=== PATIENT | male | born 1955 | race Caucasian/White ===

== ENCOUNTER 2019-03-18 20:17 | Inpatient (IN) | payer MEDICARE, MEDICAID ==
[~2019-03-18] VITALS: Ht 177.8 cm; Wt 122.5 kg
[~2019-03-18 20:17] MED LIST: ACET-8386 PO; AMIO200T PO; BENA20TA PO; BUDE1AER IH; CARV25TA PO; CLIN300C2 PO; DOCU-299 PO; DOXY100C9 PO; IBUP-974 PO; MELO7.5T11 PO; OMEP20EC9 PO; TRAM50TA1 PO
[2019-03-18 20:20] VITALS: BP 120/70
--- NOTE | 2019-03-18 20:26 | NUR ---
63 YEAR OLD MALE COMPLAINS OF INCREASED WORK OF BREATHING X1 HOUR. PATIENT CLAIMS PRODUCTIVE COUGH WITH SPUTUM X2 DAYS. PATIENT MILD WHEEZING BL ON EXPIRATION WITH MILD INCREASED WOB AND SYMMETRICAL RISE/FALL OF CHEST. 2L NC 99% O2 SATURATION. PATIENT STATES HE WAS UNABLE TO FIND ALBUTEROL TREATMENT. PATIENT STATES THAT HE FELL 2X MONTHS AGO AND STILL HAS PAIN IN LEFT LEG, RIGHT SHOULDER, AND LOWER BACK. PATIENT ALERT AND ORIENTED. SKIN WARM AND DRY. BED IN LOWEST POSITION, LOCKED, BED RAIL UPX1. HX - COPD, AFIB, LEFT CHEST IMPLANTED DEFIBRILLATOR, DM2, HF, CARDIOMYOPATHY, CAD
[2019-03-18] MEDS ORDERED: MAG SULF 2000 MG/WATER PREMIX 50 ML IV ONE (20:30)
[2019-03-18] MEDS ORDERED: ALBUTEROL SULFATE/IPRATROPIU 3 ML SOL IH ONE (20:30)
[2019-03-18] MEDS ORDERED: KETOROLAC 30 MG/ML VIAL IVP ONE (20:30)
[2019-03-18] MEDS ORDERED: methylPREDNISolone SS 125 MG in WATER STERILE 2 ML IVP ONE (20:30)
[2019-03-18 21:01] LABS: BASOPHILS % (AUTO) 0.1 % (0.0-2.0); EOSINOPHILS # (AUTO) 0.3 K/uL (0-0.4); EOSINOPHILS % (AUTO) 4.7 % (0.0-4.0); HEMATOCRIT 33.4 % (36-52); HEMOGLOBIN 10.7 g/dL (12.0-18.0); LYMPHOCYTES # (AUTO) 1.5 K/uL (2.0-11.5); LYMPHOCYTES % (AUTO) 21.9 % (20.5-51.1); MEAN CORPUSCULAR HEMOGLOBIN 28 pg (27-31); MEAN CORPUSCULAR HGB CONC 32 g/dL (33-37); MONOCYTES # (AUTO) 0.4 K/uL (0.8-1.0); MONOCYTES % (AUTO) 5.9 % (1.7-9.3); NEUTROPHILS # (AUTO) 4.7 K/uL (1.8-7.7); NEUTROPHILS % (AUTO) 67.4 % (42.2-75.2); PLATELET COUNT (AUTO) 385 K/uL (140-450); RED BLOOD CELL COUNT(AUTO) 3.79 MIL/uL (4.20-6.10); RED CELL DISTRIBUTION WIDTH 18.6 % (11.6-13.7)
[2019-03-18 21:13] LABS: ANION GAP 11.3 (8-16); CARBON DIOXIDE 30.8 mmol/L (21-32); CREATININE 1.7 mg/dL (0.7-1.3); POTASSIUM 4.1 mmol/L (3.5-5.1)
--- NOTE | 2019-03-18 21:17 | NUR ---
22G IV INSERTED ON RIGHT WRIST. PATIENT TOLERATED WELL. FLUSHED EASILY WITH NO PAIN. GOOD BLOOD RETURN.
[2019-03-18 21:18] LABS: TOTAL BILIRUBIN 0.2 mg/dL (0.0-1.0)
[2019-03-18] MEDS ORDERED: LOSA50TA66 PO (21:31)
[2019-03-18] MEDS ORDERED: ROB PO (21:31)
[2019-03-18] MEDS ORDERED: TAMS0.4C96 PO (21:31)
[2019-03-18] MEDS ORDERED: SPIR50TA PO (21:31)
[2019-03-18] MEDS ORDERED: BACL10TA4 PO (21:31)
[2019-03-18] MEDS ORDERED: FURO-570 PO (21:31)
[2019-03-18] MEDS ORDERED: ATRN INH (21:31)
[2019-03-18] MEDS ORDERED: MSCON15 PO (21:31)
[2019-03-18] MEDS ORDERED: METF500T PO (21:31)
[2019-03-18] MEDS ORDERED: MORPHINE SULFATE 4 MG/ML SYR IVP ONE (21:55)
--- NOTE | 2019-03-18 22:15 | NUR ---
EKG PERFORMED AT BEDSIDE
[2019-03-18] MEDS: NACL 0.9% 1,000 ML IV SCH (22:38)
[2019-03-18] MEDS ORDERED: ACETAMINOPHEN 325 MG TAB PO PRN (22:40)
[2019-03-18] MEDS ORDERED: DOCUSATE SODIUM 100 MG GELCAP PO PRN (22:40)
[2019-03-18] MEDS ORDERED: ONDANSETRON 4 MG/2 ML VIAL IM/IVP PRN (22:40)
[2019-03-18 23:15] VITALS: BP 130/69
[2019-03-18] MEDS ORDERED: LEVOFLOXACIN 750 MG/D5W PREMIX 150 ML IV SCH (23:15)
[2019-03-18] MEDS ORDERED: MORPHINE SULFATE 2 MG/ML SYR IVP PRN (23:15)
[2019-03-18] MEDS ORDERED: DEXTROSE 50% 50 ML SYR IVP PRN (23:15)
--- NOTE | 2019-03-18 23:15 | NUR ---
Patient will be admitted to care of DR ABRAHAM. Admited to TELE. Will go to room 119B. Belongings list completed. Report to ERICK.
--- NOTE | 2019-03-18 23:15 | NUR ---
RECOIEVED PT AAOX4 ,FROM ER WITH IV SITE INTACT AND PATENT, NO ACUTE DISTRESS NOTED AT THIS TIME O2 SAT. WNL . AMBULATES TO BED , SKIN INTACT , HE SAID HE FELL 2 MOS . AGO - C/O OF PAIN ON THE BACK AND LEGS , ON CARDIAC MO NITOR - WITH IMPLANTED DEFIBRILATOR . ON O2 AT 2LPM /NC . SPECIMEN FOR MRSA COLLECTED AND SENT TO LAB . ADMISSION ASSESSMENT DONE. PUT PT ON SAFETY / FALL PRECAUTION PROTOCOL- BED ALARM ON , CALL LIGHT WITHIN REACH . WILL CONT. TO MONITOR.
[2019-03-18] MEDS ORDERED: HYDROmorphone PFS 2 MG/ML SYR IVP SCH (23:30)
[2019-03-18] MEDS ORDERED: BACL5TAB PO (23:44)
[2019-03-18] MEDS ORDERED: SPIR25TA PO (23:44)
[2019-03-18] MEDS ORDERED: ALBU3SOL83 IH (23:44)
[2019-03-18] MEDS ORDERED: CARV3.12 PO (23:44)
[2019-03-18] MEDS ORDERED: UMEC62.5 IH (23:44)
[2019-03-18 23:46] LABS: MAGNESIUM 1.4 mg/dL (1.8-2.4); PHOSPHORUS 3.2 mg/dL (2.5-4.9); THYROID STIMULATING HORMONE 4.09 uIU/mL (0.34-3.74)
[2019-03-19] MEDS ORDERED: MORPHINE TAB ER 15 MG TABER PO PRN (00:05)
[2019-03-19] MEDS ORDERED: guaiFENesin 20 MG/ML UDC PO PRN (00:05)
[2019-03-19 00:14] LABS: PROTHROMBIN TIME 9.9 secs (10.8-13.4)
--- NOTE | 2019-03-19 00:23 | NUR ---
RT SAID THE PT MAY PUT ON RA SINCE THE O2 SAT IS GOOD AND THE PT MAY O2 MAY ON PRN BASIS. - WILL CONT. TO MONITOR.
[2019-03-19] MEDS ORDERED: MAGNESIUM OXIDE 400 MG TAB PO SCH (01:30)
--- NOTE | 2019-03-19 02:00 | NUR ---
MADE ROUNDS , NO SIGN OF ACUTE DISTRESS NOTED AT THIS TIME. CALL LIGHT WITHIN REACH.
[2019-03-19] MEDS ORDERED: CLINDAMYCIN 600 MG/4 ML VIAL ONE ×2 (02:14→06:17)
[2019-03-19] MEDS: CLINDAMYCIN 600 MG in DEXTROSE 5% 50 ML IV SCH ×3 (02:19→11:08)
[2019-03-19] MEDS ORDERED: diphenhydrAMINE 50 MG/ML VIAL IVP SCH (02:30)
[2019-03-19] MEDS ORDERED: diphenhydrAMINE 50 MG/ML VIAL ONE (02:37)
[2019-03-19] MEDS: HYDROcodone/APAP 5/325 MG 1 TAB TAB PO PRN ×2 (02:46→08:20)
[2019-03-19 03:27] LABS: BARBITURATE, URINE NEGATIVE ng/ml (NEG <=200)
[2019-03-19 03:28] LABS: BENZODIAZEPINE, URINE NEGATIVE ng/mL (NEG <=200); CANNABINOID, URINE NEGATIVE ng/mL (NEG <=50); COCAINE, URINE NEGATIVE ng/mL (NEG <=300); OPIATE, URINE POSITIVE ng/mL (NEG <=2000); PHENCYCLIDINE SCREEN,URINE NEGATIVE ng/mL (NEG <=25)
[2019-03-19 04:00] VITALS: BP 122/69
--- NOTE | 2019-03-19 04:00 | NUR ---
MADE ROUNDS , NPO ACUTE DISTRESS NOTED AT THIS TIME. Addendum: 03/19/19 at 0534 by Tayla Palmer RN THE WORD NPO IN THE NURSE'S NOTES IS AN ERROR ENTRY INSTEAD OF NO - [id number]
[2019-03-19] MEDS ORDERED: methylPREDNISolone SS 40 MG in WATER STERILE 1 ML IV SCH (05:00)
[2019-03-19] MEDS ORDERED: BACLOFEN 5 MG PO SCH (05:00)
[2019-03-19] MEDS ORDERED: methylPREDNISolone SS 40 MG/ML VIAL IVP SCH (05:00)
[2019-03-19] MEDS: BACLOFEN 10 MG TAB PO SCH ×3 (05:51→21:10)
[2019-03-19] MEDS: PANTOPRAZOLE 40 MG TABEC PO SCH (05:52)
--- NOTE | 2019-03-19 06:00 | NUR ---
MADE [id number] , RESTING ON BED WHILE DRINKING COFEE . NO FURTHER COMPLAIN MADE AT THIS TIME . WILL CONT. TO MONITOR.
[2019-03-19] MEDS: BLOOD GLUCOSE MONITORING 1 DEV DEV FS SCH ×4 (06:25→20:15)
[2019-03-19] MEDS: INSULIN LISPRO SLIDING SCALE 100 UNITS/ML VIAL SUBQ PRN ×2 (06:32→13:11)
[2019-03-19 06:35] LABS: BASOPHILS % (AUTO) 0.3 % (0.0-2.0); HEMATOCRIT 33.7 % (36-52); HEMOGLOBIN 10.8 g/dL (12.0-18.0); LYMPHOCYTES # (AUTO) 0.7 K/uL (2.0-11.5); LYMPHOCYTES % (AUTO) 11.9 % (20.5-51.1); MEAN CORPUSCULAR HEMOGLOBIN 28 pg (27-31); MEAN CORPUSCULAR HGB CONC 32 g/dL (33-37); MEAN CORPUSCULAR VOLUME 88.3 fL (80-94); MONOCYTES % (AUTO) 0.5 % (1.7-9.3); NEUTROPHILS % (AUTO) 87.3 % (42.2-75.2); PLATELET COUNT (AUTO) 364 K/uL (140-450); RED BLOOD CELL COUNT(AUTO) 3.82 MIL/uL (4.20-6.10); RED CELL DISTRIBUTION WIDTH 18.3 % (11.6-13.7); WHITE BLOOD COUNT (AUTO) 5.8 K/uL (4.8-10.8)
[2019-03-19] MEDS: ALBUTEROL SULFATE/IPRATROPIU 3 ML SOL IH SCH ×3 (06:35→19:19)
[2019-03-19] MEDS: BUDESONIDE 0.25 MG/2 ML NEBU INH SCH ×2 (06:44→19:45)
[2019-03-19 06:57] LABS: ANION GAP 13.6 (8-16); CARBON DIOXIDE 26.2 mmol/L (21-32); CREATININE 1.8 mg/dL (0.7-1.3); POTASSIUM 4.8 mmol/L (3.5-5.1)
[2019-03-19 07:06] LABS: MAGNESIUM 1.8 mg/dL (1.8-2.4)
--- NOTE | 2019-03-19 07:35 | NUR ---
Received report from shift commander nurse. Pt is in stable condition. Call light in reach.
[2019-03-19 08:00] VITALS: BP 136/84
[2019-03-19] MEDS: LACTOBACILLUS RHAMNOSUS GG 1 EACH CAP PO SCH (08:21)
[2019-03-19] MEDS: LOSARTAN 50 MG TAB PO SCH (08:22)
[2019-03-19] MEDS: SPIRONOLACTONE 25 MG TAB PO SCH (08:23)
[2019-03-19] MEDS: FUROSEMIDE 40 MG TAB PO SCH (08:23)
[2019-03-19] MEDS ORDERED: CARVEDILOL 3.125 MG TAB PO SCH ×2 (09:00→10:30)
[2019-03-19] MEDS ORDERED: metFORMIN 500 MG TAB PO SCH (09:00)
[2019-03-19] MEDS ORDERED: NON-FORMULARY ITEM (Omeprazole 20 MG) PO SCH (09:00)
[2019-03-19 09:52] LABS: APPEARANCE,URINE CLEAR (CLEAR); BILIRUBIN,URINE NEGATIVE (NEGATIVE); BLOOD, URINE NEGATIVE (NEGATIVE); COLOR,URINE YELLOW (YELLOW); LEUKOCYTE ESTERASE ,URINE NEGATIVE (NEGATIVE); NITRITE, URINE NEGATIVE (NEGATIVE); UGLUCOSE NEGATIVE (NEGATIVE)
--- NOTE | 2019-03-19 10:00 | NUR ---
PT IS IN BED RESTING IN STABLE CONDITION. CALL LIGHT IN REACH
[2019-03-19] MEDS ORDERED: predniSONE 10 MG TAB PO SCH (11:00)
[2019-03-19 12:00] VITALS: BP 112/58
--- NOTE | 2019-03-19 12:00 | NUR ---
PT IS IN BED RESTING IN STABLE CONDITION. CALL LIGHT IN REACH
--- NOTE | 2019-03-19 13:00 | NUR ---
RECEIVED REPORT FROM NURSE MARTINEZ. PATIENT IS FULL CODE, ALLERGIES TO PENICILLIN, CODEINE, AND IODINE. IV TO LT AC 22G, WITH NS INFUSING AT 30ML/HR. SKIN IS INTACT. PATIENT IS AAOX4, AMBULATORY WITH ASSIST. CURRENTLY PATIENT IS ON ROOM AIR. PT REQUESTED TO SIT IN CHAIR AT BEDSIDE.
--- NOTE | 2019-03-19 13:00 | NUR ---
REPORT GIVEN TO NURSE ARTHUR. PT IS AOX4, ASSIST WITH AMBULATORY, PT IS ON ROOM AIR. PT IS IN STABLE CONDITION. CALL LIGHT IN REACH.
--- NOTE | 2019-03-19 13:50 | NUR ---
APPLIED LOTION ALL OVER BACK AND UPPER CHEST. REAPPLIED EKG LEADS. PATIENT IS LAYING ON BED, WATCHING TV. PATIENT STATED HE SCRATCHED HIS LEFT LOWER LEG. APPLIED 2X2 TO STOP BLEEDING. WILL CONTINUE TO MONITOR.
--- NOTE | 2019-03-19 14:15 | NUR ---
PATIENT C/O COUGHING DURING PREVIOUS CT SCAN AND THAT IS WHY HE WAS UNABLE TO SIT STILL. INFORMED DR LACKEY AND WAS TOLD THAT SHE WOULD ORDER SOMETHING FOR COUGHING SO THAT PATIENT IS ABLE TO GET CT SCAN OF THE HEAD COMPLETED.
[2019-03-19] MEDS: traMADol 50 MG TAB PO PRN ×2 (14:51→23:07)
[2019-03-19] MEDS ORDERED: BENZONATATE 100 MG CAPLF PO PRN (15:00)
--- NOTE | 2019-03-19 15:05 | NUR ---
ADMINISTERED ROBITUSSIN FOR PRN COUGH. PT RECEIVING BREATHING TX AND AGREED TO ATTEMPT CT HEAD AGAIN. CALLED RADIOLOGY AND WILL ACCOMPANY PATIENT FOR CT SCAN
[2019-03-19] MEDS: ALBUTEROL SULFATE/IPRATROPIU 3 ML SOL IH PRN (15:17)
--- NOTE | 2019-03-19 15:17 | NUR ---
pt instructed on giving sputum sample cup at bedside
[2019-03-19] MEDS ORDERED: CALCIUM CARBONATE 500 MG TAB PO SCH (15:30)
--- NOTE | 2019-03-19 15:53 | NUR ---
ASSISTED COOKIE PADDER IN TRANSPORTING PATIENT TO CT FOR A HEAD SCAN. PATIENT TOLERATED WELL. PATIENT IS BACK ON UNIT
[2019-03-19 16:00] VITALS: BP 106/53
--- NOTE | 2019-03-19 16:40 | NUR ---
BLOOD SUGAR OF 121. NO INSULIN COVERAGE NEEDED.
--- NOTE | 2019-03-19 18:50 | NUR ---
PATIENT IS SITTING IN BED. FINISHED EATING DINNER. NO SIGNS OF DISTRESS NOTED. NO OTHER COMPLAINTS. FAMILY AT BEDSIDE. WILL ENDORSE TO THE MANAGER AUDIO NURSE.
--- NOTE | 2019-03-19 19:30 | NUR ---
RECEIVED BEDSIDE REPORT FROM DAY RN. PT AAOX4 ON RA. RESPIRATIONS ARE EQUAL AND UNLABORED. SHERRIE WHEEZING RT AT BEDSIDE GIVING TX. IV ON LAC 20G SITE INTACT AND PATENT, CC REDNESS ON BACK/CHEST PT RECEIVED BENADRYL LAST NIGHT PER RN MD IS AWARE. WILL MONITOR. SKIN INTACT PER RN, HE SAID HE FELL 2 MOS . AGO - C/O OF PAIN ON THE BACK AND LEGS , ON MANAGER CREDIT WITH IMPLANTED DEFIBRILLATOR . POC DISCUSSED WITH PT. FALL PRECAUTION IN PLACE. CALL LIGHT IS WITHIN REACH. WILL CONTINUE TO MONITOR.
[2019-03-19 20:00] VITALS: BP 122/79
[2019-03-19] MEDS: TAMSULOSIN 0.4 MG CAP PO SCH (21:10)
--- NOTE | 2019-03-19 21:10 | NUR ---
VITAL SIGNS ARE WITHIN NORMAL LIMITS. LIAN MEDIATIONS GIVEN. BENADRYL GIVEN FOR REDNESS ON BACK PT WITH NO SOB AT THIS TIME. ALL NEEDS MET. WILL CONTINUE TO MONITOR.
[2019-03-19] MEDS: CARVEDILOL 3.125 MG TAB PO SCH (21:11)
[2019-03-19] MEDS: LEVOFLOXACIN 500 MG/D5W PREMIX 100 ML IV SCH (21:11)
--- NOTE | 2019-03-19 22:30 | NUR ---
PATIENT IS RESTING COMFORTABLY IN BED. CHEST RISE AND FALL. NO S/S OF DISTRESS. WILL CONTINUE TO MONITOR.
[2019-03-19] MEDS: NACL 0.9% 1,000 ML IV SCH (22:38)
[2019-03-20] VITALS: BP 129/59
--- NOTE | 2019-03-20 | NUR ---
VITAL SIGNS ARE WITHIN NORMAL LIMITS. ALL NEEDS MET AT THIS TIME. CALL LIGHT WITHIN REACH.
--- NOTE | 2019-03-20 01:25 | NUR ---
PT IS ASLEEP. NO BREATHING TX GIVEN
[2019-03-20 04:00] VITALS: BP 107/60
--- NOTE | 2019-03-20 04:00 | NUR ---
VITAL SIGNS ARE WITHIN NORMAL LIMITS. ALL NEEDS MET AT THIS TIME.
[2019-03-20] MEDS: PANTOPRAZOLE 40 MG TABEC PO SCH (05:54)
[2019-03-20] MEDS: BACLOFEN 10 MG TAB PO SCH ×3 (05:54→20:45)
--- NOTE | 2019-03-20 05:54 | NUR ---
LIAN MEDICATIONS GIVEN PER ORDERS. BLOOD SUGAR 133. NO COVERAGE NEEDED. SAFETY MEASURES ARE IN PLACE. CALL LIGHT IS WITHIN REACH.
[2019-03-20] MEDS: BLOOD GLUCOSE MONITORING 1 DEV DEV FS SCH ×2 (05:58→11:54)
[2019-03-20] MEDS: ALBUTEROL SULFATE/IPRATROPIU 3 ML SOL IH SCH ×3 (06:56→19:03)
[2019-03-20] MEDS: BUDESONIDE 0.25 MG/2 ML NEBU INH SCH ×2 (07:05→19:03)
[2019-03-20 07:18] LABS: BASOPHILS % (AUTO) 0.2 % (0.0-2.0); HEMATOCRIT 34.7 % (36-52); LYMPHOCYTES # (AUTO) 1.3 K/uL (2.0-11.5); LYMPHOCYTES % (AUTO) 9.3 % (20.5-51.1); MEAN CORPUSCULAR HEMOGLOBIN 28 pg (27-31); MEAN CORPUSCULAR HGB CONC 32 g/dL (33-37); MONOCYTES # (AUTO) 0.5 K/uL (0.8-1.0); MONOCYTES % (AUTO) 3.6 % (1.7-9.3); NEUTROPHILS # (AUTO) 11.7 K/uL (1.8-7.7); NEUTROPHILS % (AUTO) 86.9 % (42.2-75.2); PLATELET COUNT (AUTO) 397 K/uL (140-450); RED BLOOD CELL COUNT(AUTO) 3.89 MIL/uL (4.20-6.10); RED CELL DISTRIBUTION WIDTH 18.6 % (11.6-13.7); WHITE BLOOD COUNT (AUTO) 13.4 K/uL (4.8-10.8)
[2019-03-20] MEDS: traMADol 50 MG TAB PO PRN ×3 (07:21→23:31)
--- NOTE | 2019-03-20 07:25 | NUR ---
RECEIVED BEDSIDE REPORT FROM PAPER PRODUCTS MACHINE OPERATOR NURSE, PT IS GETTING A BREATHING TX AT THIS TIME. NO S/S OF ACUTE DISTRESS NOTED. PT IS ON ROOM AIR, SKIN INTACT, HOWEVER A RASH IS NOTED ON THE BACK AND ON THE CHEST. PT SATS THE RASH IS ITCHY. MD IS AWARE OF THIS. IV SITE L AC 20 G, INFUSING NS 50 ML/HR. FALL PRECAUTIONS IN PLACE, CALL LIGHT IS WITHIN REACH.
--- NOTE | 2019-03-20 07:30 | NUR ---
GAVE BEDSIDE REPORT TO DAY SHIFT RN. PT ENDORSED IN STABLE CONDITION.
[2019-03-20 07:36] LABS: PHOSPHORUS 4.1 mg/dL (2.5-4.9)
[2019-03-20 08:00] VITALS: BP 126/59
--- NOTE | 2019-03-20 08:24 | NUR ---
PATIENT HAS BEEN SCREENED AND CATEGORIZED MODERATE NUTRITION RISK. PATIENT WILL BE SEEN WITHIN 3-5 DAYS OF ADMISSION. 03/21/19 03/23/[address]
[2019-03-20 09:05] LABS: ANION GAP 12.4 (8-16); CARBON DIOXIDE 26.6 mmol/L (21-32)
[2019-03-20 09:06] LABS: CREATININE 1.7 mg/dL (0.7-1.3)
--- NOTE | 2019-03-20 09:12 | NUR ---
PT HAVING A SPONGE BATH AT THIS TIME.
--- NOTE | 2019-03-20 09:20 | NUR ---
PT SEEN BY DR JUNIOR, PT IS DOWNGRADED TO MED-SURG.
[2019-03-20] MEDS: LACTOBACILLUS RHAMNOSUS GG 1 EACH CAP PO SCH (09:38)
[2019-03-20] MEDS: CALCIUM CARBONATE 500 MG TAB PO SCH (09:38)
[2019-03-20] MEDS: FUROSEMIDE 40 MG TAB PO SCH (09:38)
[2019-03-20] MEDS: SPIRONOLACTONE 25 MG TAB PO SCH (09:39)
[2019-03-20] MEDS: LOSARTAN 50 MG TAB PO SCH (09:39)
[2019-03-20] MEDS: CARVEDILOL 3.125 MG TAB PO SCH ×2 (09:39→20:46)
[2019-03-20] MEDS: HYDROCORTISONE 1% CRM 30 GM TUBE TP SCH ×2 (10:17→20:43)
--- NOTE | 2019-03-20 10:22 | NUR ---
PT IS HAVING PHYSICAL THERAPY.
[2019-03-20] MEDS ORDERED: predniSONE 20 MG TAB PO SCH (11:00)
--- NOTE | 2019-03-20 13:05 | NUR ---
STOOL HEMOCCULT SAMPLE TAKEN TO LAB.
--- NOTE | 2019-03-20 13:15 | NUR ---
03/20/19 RD INITIAL ASSESSMENT COMPLETED PLEASE REFER TO NUTRITION ASSESSMENT UNDER CARE ACTIVITY FOR ESTIMATED NUTRITIONAL NEEDS. 1. CONTINUE CCHO 60GM DIET TOLERATED 2. PT DECLINED CARDIAC DIET 3. HEALTH SHAKE WITH MEALS WILL BE PROVIDED BY [facility] 4. RD TO FOLLOW-UP 5-7 DAYS, LOW RISK [address]
[2019-03-20 16:00] VITALS: BP 134/74
--- NOTE | 2019-03-20 16:30 | NUR ---
PT REFUSED TO HAVE HIS BLOOD GLUCOSE CHECKED. PT STATES THAT HE IS "NOT DIABETIC, AND HAS NEVER BEEN DIABETIC". DR GAVIN IS AWARE.
[2019-03-20] MEDS: NACL 0.9% 1,000 ML IV SCH (18:33)
--- NOTE | 2019-03-20 19:28 | NUR ---
PT ENDORSED TO SUPERVISOR PARTIAL DENTURE DEPARTMENT NURSE IN STABLE CONDITION.
--- NOTE | 2019-03-20 19:29 | NUR ---
Received endorsement from AM shift RN; patient A/Ox4, able to make needs known, Faroese speaking, ambulatory with 1-person assist. Patient watching TV; introduced self, updated board. No SOB or distress noted, on room air. IV site noted on left antecubital, 20 gauge, running NS at 80mL/hr. Skin intact, but noted with excoriation/redness no chest and back. Bed in the lowest position, call light within reach. Initial assessment done. Will continue to monitor.
[2019-03-20] MEDS: TAMSULOSIN 0.4 MG CAP PO SCH (20:44)
[2019-03-20] MEDS: KETOROLAC 30 MG/ML VIAL IVP PRN (20:55)
[2019-03-20] MEDS: LEVOFLOXACIN 500 MG/D5W PREMIX 100 ML IV SCH (21:05)
--- NOTE | 2019-03-20 21:20 | NUR ---
Due meds given, tolerated well.
--- NOTE | 2019-03-20 23:30 | NUR ---
Vitals taken; patient resting comfortably, visible chest rise and fall noted.
[2019-03-21] VITALS: BP 129/73
--- NOTE | 2019-03-21 01:07 | NUR ---
Rounds done; patient asleep, eyes closed, visible chest rise and fall noted.
--- NOTE | 2019-03-21 03:35 | NUR ---
Checks made; no SOB or distress noted. Patient resting comfortably, visible chest rise and fall noted.
[2019-03-21] MEDS: ALBUTEROL SULFATE/IPRATROPIU 3 ML SOL IH PRN (04:19)
--- NOTE | 2019-03-21 05:10 | NUR ---
Rounds done; no SOB or distress noted.
[2019-03-21] MEDS: PANTOPRAZOLE 40 MG TABEC PO SCH (05:30)
[2019-03-21] MEDS: BACLOFEN 10 MG TAB PO SCH ×3 (05:30→20:20)
[2019-03-21 05:34] LABS: HEMATOCRIT 31.9 % (36-52); HEMOGLOBIN 10.2 g/dL (12.0-18.0); MEAN CORPUSCULAR HEMOGLOBIN 29 pg (27-31); MEAN CORPUSCULAR HGB CONC 32 g/dL (33-37); MEAN CORPUSCULAR VOLUME 88.8 fL (80-94); PLATELET COUNT (AUTO) 356 K/uL (140-450); RED BLOOD CELL COUNT(AUTO) 3.59 MIL/uL (4.20-6.10); RED CELL DISTRIBUTION WIDTH 18.9 % (11.6-13.7); WHITE BLOOD COUNT (AUTO) 8.5 K/uL (4.8-10.8)
--- NOTE | 2019-03-21 06:05 | NUR ---
Vitals stable, due meds given. Will endorse to AM shift RN for continuity of care.
[2019-03-21 06:16] LABS: LYMPHOCYTES % (MANUAL) 24 % (20-46); MONOCYTES % (MANUAL) 6 % (5-12)
[2019-03-21 06:54] LABS: CARBON DIOXIDE 28.5 mmol/L (21-32); POTASSIUM 4.5 mmol/L (3.5-5.1)
[2019-03-21 06:55] LABS: CREATININE 1.9 mg/dL (0.7-1.3)
[2019-03-21 07:05] LABS: PHOSPHORUS 4.4 mg/dL (2.5-4.9)
--- NOTE | 2019-03-21 07:09 | NUR ---
PT REFUSES HHNS WANTS TO DRINK COFFEE Addendum: 03/21/19 at 0748 by Lynn Caal RT PT REFUSES VITALS
--- NOTE | 2019-03-21 07:12 | NUR ---
RECEIVED BED SIDE REPORT FROM VETERINARY PATHOLOGIST NURSE. PATIENT IN STABLE CONDITION, NO DISTRESS NOTED. WILL CONTINUE TO FOLLOW UP.
[2019-03-21] MEDS: ALBUTEROL SULFATE/IPRATROPIU 3 ML SOL IH SCH ×3 (07:37→19:36)
[2019-03-21] MEDS: BUDESONIDE 0.25 MG/2 ML NEBU INH SCH ×2 (07:47→19:36)
[2019-03-21 08:00] VITALS: BP 128/72
[2019-03-21] MEDS: SPIRONOLACTONE 25 MG TAB PO SCH (09:38)
[2019-03-21] MEDS: CARVEDILOL 3.125 MG TAB PO SCH ×2 (09:38→20:20)
[2019-03-21] MEDS: LOSARTAN 50 MG TAB PO SCH (09:38)
[2019-03-21] MEDS: FUROSEMIDE 40 MG TAB PO SCH (09:39)
[2019-03-21] MEDS: LACTOBACILLUS RHAMNOSUS GG 1 EACH CAP PO SCH (09:39)
[2019-03-21] MEDS: CALCIUM CARBONATE 500 MG TAB PO SCH (09:39)
[2019-03-21] MEDS: HYDROCORTISONE 1% CRM 30 GM TUBE TP SCH ×2 (09:40→20:21)
--- NOTE | 2019-03-21 09:50 | NUR ---
PATIENT SITTING DOWN IN BED. NO DISTRESS NOTED. DENIES ANY PAIN. SCHEDULED MEDICATIONS DUE GIVEN. WILL CONTINUE TO MONITOR.
--- NOTE | 2019-03-21 10:43 | NUR ---
Paunch Trimmer Note: Basic Screen: Yes High Risk DC Screen Yes Name: JEWELS Camarillo Relationship: FRIEND Pre-Admission Living Arrangements: Other Other: [facility] Prior ADL Independent Current Home Health Name/Tel: YES Current DME/02 Name/Tel: [facility] Current Hospice Name/Tel: N/A Current Dialysis Name/Tel: YES Healthcare Decision Maker: Patient Advance Directive No Discipline: Case Mgt/Social Svcs Tentative Discharge Plan/Destination: Other Other: ASSISTED LIVING Will require assistance post discharge: No Referred to [facility]: No Tentative Discharge Plan Summary: Patient is a 63-year-old male admitted for COPD exacerbation. Patient has PHMX of cardiac disorders, COPD and hypertension. Patient was admitted from [facility]. SW contacted Syed - Rn Testing [phone]. Per Marya patient is self-responsible with healthcare decision making and the tentative discharge plan is to return to [facility]. Syed stated that patient is a new resident as of 03/16/2019 and home health and dialysis has not yet been coordinated for patient. No further needs identified. Signature: AMRIK Handley Date: Mar 20, 2019 Time: 16:43
[2019-03-21] MEDS ORDERED: predniSONE 10 MG TAB PO SCH (11:00)
--- NOTE | 2019-03-21 11:14 | NUR ---
PATIENT SLEEPING IN THE BED, CALM, NO RESP DISTRESS NOTED. WILL CONTINUE TO MONITOR.
--- NOTE | 2019-03-21 13:45 | NUR ---
AT THE BEDSIDE WITH PATIENT. PT ALSO AT THE BEDSIDE. SCHEDULED MEDICATION GIVEN AT THIS TIME. PATIENT STABLE, PREPARING TO AMBULATE WITH PT. WILL CONTINUE TO MONITOR.
--- NOTE | 2019-03-21 14:54 | NUR ---
DC PLANNIN YRS OLD MALE PATIENT ADMITTED FROM [facility] (ASSISTED LIVING) WITH A DX OF COPD EXACERBATION. PT HAS A HX OF COPD, HTN AND CHF. RT PROTOCOL INITIATED ADMINISTER IV LEVAQUIN AND CLEOCIN, AND PULMO CONSULT ORDERED . DC PLAN TO GO BACK TO [facility] WITH HOME HEALTH FOR PT. FAXED TO LEONIDAS COSTA TO FOLLOW Addendum: 03/21/19 at 1634 by Rebekah Skaggs CM DC PLANNING: RECEIVED A CALL FROM LEONIDAS HOLMAN CM STATED PT CAN GO TO WITH [facility] [phone] AND FOR THE WALKER THEY WILL DELIVER IT TOMORROW AT [facility].
[2019-03-21 16:00] VITALS: BP 129/87
--- NOTE | 2019-03-21 16:00 | NUR ---
PATIENT SITTING AT BEDSIDE CHAIR. NO DISTRESS NOTED. DENIES ANY PAIN. WILL CONTINUE TO MONITOR.
--- NOTE | 2019-03-21 18:00 | NUR ---
PATIENT SITTING AT BEDSIDE CHAIR WATCHING TV. NO DISTRESS NOTED. CONDITION UNCHANGED. WILL CONTINUE TO MONITOR.
[2019-03-21] MEDS: NACL 0.9% 1,000 ML IV SCH (18:10)
--- NOTE | 2019-03-21 19:23 | NUR ---
GAVE REPORT TO MANAGER FACILITY NURSE FOR CONTINUITY OF CARE. PATIENT IN STABLE CONDITION.
--- NOTE | 2019-03-21 19:24 | NUR ---
REPORT RECEIVED FROM AM NURSE AT BEDSIDE. PT IN STABLE CONDITION. AAOX4. INTRODUCED SELF TO PT. BOARD UPDATED. NO COMPLAINTS OF PAIN. NO SOB. AFEBRILE. PT IS AMBULATORY WITH ASSIST. REQUIRES A WALKER BUT WILL RECEIVE IT AT A LATER TIME. IV SITE L AC 20G RUNNING NS@20ML/HR PATENT AND INTACT. SKIN WARM, DRY, AND INTACT BUT HAS RASHES ON HIS CHEST AND BACK. BED LOCKED IN LOW POSITION. CALL HARDY WITHIN REACH. SAFETY PRECAUTION IN PLACE. ALL NEEDS MET AT THIS TIME.
[2019-03-21] MEDS: traMADol 50 MG TAB PO PRN (20:20)
[2019-03-21] MEDS: TAMSULOSIN 0.4 MG CAP PO SCH (20:20)
--- NOTE | 2019-03-21 20:20 | NUR ---
CLEOCIN HUNG AND RUNNING. COREG, FLOMAX, BACLOFEN, AND TRAMADOL GIVEN PO. HEPARIN GIVEN SUBQ. HYDROCORTISONE APPLIED TO BACK. PT TOLERATED WELL.
[2019-03-21] MEDS: CLINDAMYCIN 600 MG in DEXTROSE 5% 50 ML IV SCH (20:21)
--- NOTE | 2019-03-21 22:20 | NUR ---
PT WATCHING TV IN BED. NO S/S OF DISTRESS NOTED. WILL CONTINUE TO MONITOR.
[2019-03-22] VITALS: BP 113/63
[2019-03-22] MEDS: KETOROLAC 30 MG/ML VIAL IVP PRN ×3 (00:06→11:56)
--- NOTE | 2019-03-22 00:06 | NUR ---
TORADOL GIVEN FOR 7/10 BACK PAIN. PT TOLERATED WELL.
--- NOTE | 2019-03-22 02:36 | NUR ---
PT SLEEPING COMFORTABLY IN BED BUT AROUSABLE. NO S/S OF DISTRESS NOTED. WILL CONTINUE TO MONITOR.
--- NOTE | 2019-03-22 04:10 | NUR ---
PT SLEEPING COMFORTABLY BUT AROUSABLE. NO S/S OF DISTRESS NOTED. RESPIRATIONS EVEN, UNLABORED, AND WNL. WILL CONTINUE TO MONITOR.
[2019-03-22] MEDS: BACLOFEN 10 MG TAB PO SCH (05:36)
[2019-03-22] MEDS: CLINDAMYCIN 600 MG in DEXTROSE 5% 50 ML IV SCH (05:36)
[2019-03-22] MEDS: PANTOPRAZOLE 40 MG TABEC PO SCH (05:37)
--- NOTE | 2019-03-22 05:37 | NUR ---
ÁNGEL REN AND RUNNING. PROTONIX AND BACLOFEN GIVEN PO. TORADOL GIVEN FOR 7 BACK PAIN. PT TOLERATED WELL.
[2019-03-22] MEDS ORDERED: CLIN300C6 PO (06:19)
[2019-03-22] MEDS ORDERED: LACT10CA PO (06:19)
[2019-03-22] MEDS ORDERED: HYD1C TP (06:19)
[2019-03-22] MEDS ORDERED: PRED10TA5 PO (06:19)
[2019-03-22] MEDS ORDERED: OSC500 PO (06:19)
--- NOTE | 2019-03-22 06:40 | NUR ---
PT UP IN BED WATCHING TV. PT IN STABLE CONDITION.
[2019-03-22] MEDS: ALBUTEROL SULFATE/IPRATROPIU 3 ML SOL IH SCH (07:00)
[2019-03-22 07:08] LABS: BASOPHILS % (AUTO) 0.5 % (0.0-2.0); EOSINOPHILS # (AUTO) 0.1 K/uL (0-0.4); HEMATOCRIT 32.8 % (36-52); HEMOGLOBIN 10.6 g/dL (12.0-18.0); LYMPHOCYTES # (AUTO) 2.2 K/uL (2.0-11.5); LYMPHOCYTES % (AUTO) 27.2 % (20.5-51.1); MEAN CORPUSCULAR HEMOGLOBIN 29 pg (27-31); MEAN CORPUSCULAR HGB CONC 32 g/dL (33-37); MEAN CORPUSCULAR VOLUME 88.6 fL (80-94); MONOCYTES # (AUTO) 0.8 K/uL (0.8-1.0); MONOCYTES % (AUTO) 10.4 % (1.7-9.3); NEUTROPHILS # (AUTO) 4.9 K/uL (1.8-7.7); NEUTROPHILS % (AUTO) 60.9 % (42.2-75.2); PLATELET COUNT (AUTO) 356 K/uL (140-450); RED CELL DISTRIBUTION WIDTH 18.6 % (11.6-13.7); WHITE BLOOD COUNT (AUTO) 8.1 K/uL (4.8-10.8)
--- NOTE | 2019-03-22 07:14 | NUR ---
RECEIVED REPORT FROM LABORER ORCHARD NURSE, PATIENT IN STABLE CONDITION. WILL CONTINUE TO MONITOR.
[2019-03-22 07:15] LABS: MAGNESIUM 1.9 mg/dL (1.8-2.4)
[2019-03-22 07:17] LABS: ANION GAP 11.6 (8-16); CARBON DIOXIDE 29.1 mmol/L (21-32); CREATININE 1.7 mg/dL (0.7-1.3); POTASSIUM 4.7 mmol/L (3.5-5.1)
[2019-03-22] MEDS: BUDESONIDE 0.25 MG/2 ML NEBU INH SCH (07:30)
--- NOTE | 2019-03-22 07:41 | NUR ---
PT REFUSED TX. PT VERY RUDE AND SCREAMING. NURSE AT BEDSIDE
[2019-03-22 08:00] VITALS: BP 123/78
[2019-03-22] MEDS: CARVEDILOL 3.125 MG TAB PO SCH (09:31)
[2019-03-22] MEDS: LACTOBACILLUS RHAMNOSUS GG 1 EACH CAP PO SCH (09:31)
[2019-03-22] MEDS: SPIRONOLACTONE 25 MG TAB PO SCH (09:31)
[2019-03-22] MEDS: CALCIUM CARBONATE 500 MG TAB PO SCH (09:32)
[2019-03-22] MEDS: FUROSEMIDE 40 MG TAB PO SCH (09:32)
[2019-03-22] MEDS: LOSARTAN 50 MG TAB PO SCH (09:34)
[2019-03-22] MEDS: HYDROCORTISONE 1% CRM 30 GM TUBE TP SCH (09:34)
[2019-03-22] MEDS ORDERED: predniSONE 5 MG TAB PO SCH (11:00)
--- NOTE | 2019-03-22 11:30 | NUR ---
CALLED [facility], SPOKE TO SUNG, ADVISED HER OF PATIENTS DISCHARGED AND THE NEED OF TRANSPORT. SUNG STATED SHE ARRIVE AT 1145 FOR PATIENT [employer] INTEGRATION ARCHITECT. PATIENT WILL BE PREPARED FOR DISCHARGED AT THIS TIME.
[2019-03-22] MEDS ORDERED: UMEC62.5 IH (11:37)
[2019-03-22] MEDS ORDERED: ALBU3SOL83 IH (11:37)
--- NOTE | 2019-03-22 11:50 | NUR ---
AT THE BEDSIDE WITH PATIENT FOR DISCHARGE INSTRUCTIONS AND TEACHING, PATIENT EDUCATED ON THE PLAN OF CARE AND VERBALIZED UNDERSTANDING. PATIENT HAS LUNCH AT THE BED SIDE REQUESTED. ALL QUESTIONS WERE ANSWERS. PATIENT ADVISED MEDICATIONS SENT TO PHARMACY. PATIENT IS DRESSES AND PREPARED FOR DISCHARGE. IV DISCONTINUED LUMEN INTACT, NO REDNESS AND SWELLING NOTED. AND ID BAND REMOVED. PATIENT IS STABLE AT THIS TIME. PATIENT WHEELED CHAIRED TO THE [facility] WHERE SUNG WAS WAITING. PATIENT WAS DISCHARGED AT THIS TIME.
== END 2019-03-22 12:10 | disposition home health service (06) | DRG 682 ==
LOC: MED 20:17 → MTU 22:52
PROVIDERS: ADMIT General Practice; ATTEND General Practice
DX: N17.0 Acute kidney failure with tubular necrosis (principal); J18.9 Pneumonia, unspecified organism; G93.41 Metabolic encephalopathy; E43 Unspecified severe protein-calorie malnutrition; J96.01 Acute respiratory failure with hypoxia; J44.1 Chronic obstructive pulmonary disease with (acute) exacerbation; J44.0 Chronic obstructive pulmonary disease with (acute) lower respiratory infection; I11.0 Hypertensive heart disease with heart failure; I50.9 Heart failure, unspecified; E11.9 Type 2 diabetes mellitus without complications; K21.9 Gastro-esophageal reflux disease without esophagitis; N40.0 Benign prostatic hyperplasia without lower urinary tract symptoms; G89.4 Chronic pain syndrome; M17.0 Bilateral primary osteoarthritis of knee; D64.9 Anemia, unspecified; E83.42 Hypomagnesemia; E02 Subclinical iodine-deficiency hypothyroidism; M62.838 Other muscle spasm; Z68.38 Body mass index [BMI] 38.0-38.9, adult; Z88.5 Allergy status to narcotic agent; Z88.0 Allergy status to penicillin; Z88.8 Allergy status to other drugs, medicaments and biological substances; Z91.041 Radiographic dye allergy status; Z95.810 Presence of automatic (implantable) cardiac defibrillator; Z87.891 Personal history of nicotine dependence; Z90.49 Acquired absence of other specified parts of digestive tract
CPT/HCPCS: 36415; 36600; 70450; 71045; 80048; 80053; 80305; 81003; 82272; 82803; 82948; 83036; 83605; 83735; 83880; 84100; 84439; 84443; 84484; 85025; 85610; 85730; 87040; 87070; 87081; 87086; 87186; 87205; 87804; 93005; 93970; 94640; 96365; 96366; 96375; 97112; 97116; 97161-GP; 97530; 99291; J1170; J1200; J1644; J1815; J1885; J1956; J2270; J2920; J2930; J3475; J3490; J7060; J7512; J7620; J7626; Q0092; Q0163

== ENCOUNTER 2019-03-25 10:44 | Emergency (ER) | payer MEDICARE, MEDICAID ==
[~2019-03-25] VITALS: Ht 180.3 cm; Wt 122.5 kg
[~2019-03-25 10:44] MED LIST changes: +ALBU3SOL83 IH; -AMIO200T PO; +BACL5TAB PO; -BENA20TA PO; -BUDE1AER IH; -CARV25TA PO; +CARV3.12 PO; -CLIN300C2 PO; +CLIN300C6 PO; -DOCU-299 PO; -DOXY100C9 PO; +FURO-570 PO; +HYD1C TP; -IBUP-974 PO; +LACT10CA PO; +LOSA50TA66 PO; -MELO7.5T11 PO; +METF500T PO; +MSCON15 PO; +OSC500 PO; +PRED10TA5 PO; +ROB PO; +SPIR25TA PO; +TAMS0.4C96 PO; +UMEC62.5 IH
--- NOTE | 2019-03-25 10:45 | NUR ---
PT ANATOLYA BLS TO ER BED 09
[2019-03-25 10:46] VITALS: BP 120/58
--- NOTE | 2019-03-25 10:56 | NUR ---
[facility] C/O PRURITIC RASH TO BACK AND BL UPPER LEGS X 4 DAYS. ERYTHEMATOUS PATCHY AND BLANCHABLE RASH NOTED BACK. STATES ASSOCIATED MILD PAIN WITH RASH. STATES RECEIVED PREDNISONE A FEW DAYS AGO AND RASH APPEARED. STATES SIMILAR RASH WITH PREDNISONE USE YEARS AGO WELL. HX- CHF, AFIB
[2019-03-25] MEDS ORDERED: CALAMINE/ZINC OXIDE 8% 118 ML BTL TP ONE ×2 (11:15)
[2019-03-25] MEDS ORDERED: KETOROLAC 60 MG/2 ML VIAL IM ONE (11:20)
--- NOTE | 2019-03-25 11:27 | NUR ---
CALLED PHARMACY--ASKED TECH TO BRING CALAMINE LOTION.
--- NOTE | 2019-03-25 13:00 | NUR ---
INFORMED PT THAT [facility] WILL BE HERE TO PICK HIM UP IN 30-40 MINUTES.
--- NOTE | 2019-03-25 13:50 | NUR ---
[facility] AT BEDSIDE FOR PICK-UP.
[2019-03-25 13:52] VITALS: BP 113/60
--- NOTE | 2019-03-25 13:52 | NUR ---
Patient discharged with v/s stable. Written and verbal after care instructions given and explained. Patient alert, oriented and verbalized understanding of instructions. Wheel Chair Assisted with to long-term. All questions addressed prior to discharge. ID band removed. Patient advised to follow up with PMD. Rx of CALAMINE LOTION given. Patient educated on indication of medication including possible reaction and side effects. Opportunity to ask questions provided and answered.
== END 2019-03-25 13:52 | disposition home or self-care (01) ==
LOC: MED 10:44
DX: R21 Rash and other nonspecific skin eruption (principal); L53.9 Erythematous condition, unspecified; J44.9 Chronic obstructive pulmonary disease, unspecified; I10 Essential (primary) hypertension; Z90.49 Acquired absence of other specified parts of digestive tract; Z98.890 Other specified postprocedural states; Z95.810 Presence of automatic (implantable) cardiac defibrillator; Z79.51 Long term (current) use of inhaled steroids; Z79.2 Long term (current) use of antibiotics; Z79.899 Other long term (current) drug therapy; Z79.891 Long term (current) use of opiate analgesic; Z88.0 Allergy status to penicillin; Z88.5 Allergy status to narcotic agent; Z88.8 Allergy status to other drugs, medicaments and biological substances
CPT/HCPCS: 96372; 99283; J1885

== ENCOUNTER 2019-04-16 17:03 | Inpatient (IN) | payer OTHER, MEDICAID ==
[~2019-04-16] VITALS: Ht 177.8 cm; Wt 127.0 kg
--- NOTE | 2019-04-16 17:03 | NUR ---
Patient BIBA BLS, transferred to bed 9. RN evaluating patient at bedside.
--- NOTE | 2019-04-16 17:05 | NUR ---
63 YEAR OLD MALE COMPLAINS OF ACHING AND PRESSURE ABDOMINAL PAIN 12/03. PATIENT STATES THAT HE IS CONSTIPATED FOR THE PAST DAY WITH HARD AND SMALL STOOLS. PATIENT STATES THAT HE HAS HAD NO NAUSEA AND VOMITTING. BOWEL SOUNDS ACTIVE X4, UPPER ABDOMINAL PAIN ON PALPATION. HR 99, BP 94/66, RR 16, SPO2 95. PATIENT ALERT AND ORIENTED, PATIENT BREATHING EVEN AND UNLABORED, SKIN WARM AND DRY. BED IN LOWEST POSITION, LOCKED, BED RAIL UPX1.
[2019-04-16 17:16] VITALS: BP 98/56
--- NOTE | 2019-04-16 17:21 | NUR ---
Dr. Klein is evaluating the patient at bedside.
[2019-04-16] MEDS ORDERED: NACL 0.9% 1,000 ML IV ONE (17:24)
[2019-04-16] MEDS ORDERED: NACL 0.9% 1,000 ML IV SCH (17:24)
[2019-04-16] MEDS ORDERED: LORazepam 2 MG/ML VIAL IVP ONE (17:25)
[2019-04-16] MEDS ORDERED: FAMOTIDINE 20 MG/2 ML VIAL IVP ONE (17:25)
[2019-04-16] MEDS ORDERED: LACTULOSE 20 GM/30 ML UDC PO ONE (17:25)
[2019-04-16] MEDS ORDERED: METOCLOPRAMIDE 10 MG/2 ML INJ VIAL IVP ONE (17:25)
[2019-04-16] MEDS ORDERED: KETOROLAC 30 MG/ML VIAL IVP ONE (17:25)
--- NOTE | 2019-04-16 17:37 | NUR ---
XRAY AT BEDSIDE
--- NOTE | 2019-04-16 17:58 | NUR ---
Dr. Klein is re-evaluating the patient at bedside.
--- NOTE | 2019-04-16 17:59 | NUR ---
rad technologist at bedside.
[2019-04-16 18:01] LABS: BASOPHILS # (AUTO) 0.1 K/uL (0.00-0.22); BASOPHILS % (AUTO) 0.9 % (0.0-2.0); EOSINOPHILS # (AUTO) 0.2 K/uL (0-0.4); EOSINOPHILS % (AUTO) 3.5 % (0.0-4.0); HEMOGLOBIN 9.3 g/dL (12.0-18.0); LYMPHOCYTES # (AUTO) 1.4 K/uL (2.0-11.5); LYMPHOCYTES % (AUTO) 20.2 % (20.5-51.1); MEAN CORPUSCULAR HEMOGLOBIN 29 pg (27-31); MEAN CORPUSCULAR HGB CONC 32 g/dL (33-37); MONOCYTES # (AUTO) 0.6 K/uL (0.8-1.0); MONOCYTES % (AUTO) 9.1 % (1.7-9.3); NEUTROPHILS # (AUTO) 4.6 K/uL (1.8-7.7); NEUTROPHILS % (AUTO) 66.3 % (42.2-75.2); PLATELET COUNT (AUTO) 308 K/uL (140-450); RED BLOOD CELL COUNT(AUTO) 3.23 MIL/uL (4.20-6.10); RED CELL DISTRIBUTION WIDTH 17.1 % (11.6-13.7); WHITE BLOOD COUNT (AUTO) 6.9 K/uL (4.8-10.8)
[2019-04-16] MEDS ORDERED: MORPHINE SULFATE 4 MG/ML SYR IVP ONE (18:05)
--- NOTE | 2019-04-16 18:08 | NUR ---
Patient taken to CT scan via wheelchair by tech.
[2019-04-16 18:11] LABS: ANION GAP 13.9 (8-16); CARBON DIOXIDE 26.5 mmol/L (21-32); CREATININE 1.8 mg/dL (0.7-1.3); POTASSIUM 4.4 mmol/L (3.5-5.1)
[2019-04-16 18:16] LABS: ALBUMIN 2.9 g/dL (3.4-5.0); TOTAL BILIRUBIN 0.2 mg/dL (0.0-1.0)
[2019-04-16 18:22] LABS: PROTHROMBIN TIME 9.9 secs (10.8-13.4)
[2019-04-16] MEDS ORDERED: FLEPED RC (18:30)
[2019-04-16] MEDS ORDERED: ATRN INH (18:30)
[2019-04-16] MEDS ORDERED: BISA5ECT45 PO ×2 (18:30→22:10)
[2019-04-16] MEDS ORDERED: ACET-8211 PO ×2 (18:30→22:10)
[2019-04-16] MEDS ORDERED: DEXT 5% /NACL 0.9% 1,000 ML IV SCH (18:52)
[2019-04-16] MEDS ORDERED: ACETAMINOPHEN 325 MG TAB PO PRN (18:55)
[2019-04-16] MEDS ORDERED: ONDANSETRON 4 MG/2 ML VIAL IM/IVP PRN (18:55)
[2019-04-16] MEDS ORDERED: DOCUSATE SODIUM 100 MG GELCAP PO PRN (18:55)
[2019-04-16] MEDS ORDERED: LIDOCAINE/PRILOCAINE 2.5% 5 GM TUBE TP ONE (19:00)
--- NOTE | 2019-04-16 19:00 | NUR ---
Unsuccessful IV attempts with log tumbler on RAMONA, after 3 attempts. Pt requested to have IV placed on foot. Per Dr. Klein, it is ok to place IV on BL lower extremities. Pt requested for topical analgesia before IV insertion on foot. Verbal order for EMLA cream topical on foot from Dr. Klein before IV insertion, applied as ordered. Successful IV insertion 22G on R foot, pt tolerated well.
[2019-04-16] MEDS ORDERED: DEXT 5% /NACL 0.9% 1,000 ML IV PRN (19:19)
--- NOTE | 2019-04-16 19:29 | NUR ---
Pt laying in bed, rr even and unlabored. Pt is sleepy, reports relaxation after medications. Denies n/v, no active vomiting. All needs met at this time.
[2019-04-16] MEDS ORDERED: traMADol 50 MG TAB PO PRN (19:30)
[2019-04-16] MEDS ORDERED: MORPHINE TAB ER 15 MG TABER PO SCH (19:30)
--- NOTE | 2019-04-16 19:30 | NUR ---
Patient will be admitted to care of Dr Benton. Admited to Telemetry. Will go to [id number]. Belongings list completed. Report to Hansel HERNÁNDEZ.
[2019-04-16 19:36] LABS: MAGNESIUM 1.6 mg/dL (1.8-2.4); PHOSPHORUS 2.8 mg/dL (2.5-4.9)
--- NOTE | 2019-04-16 19:40 | NUR ---
RECEIVED BEDSIDE REPORT FROM ED RN EILEEN, FOR PT'S CONTINUITY OF CARE. PT IS ASLEEP, TRANSPORTED VIA GURNEY, ON FIRST PRESS OPERATOR, ON 2L O2 VIA NC, HAS RIGHT FOOT 22G (ORDER FOR LOWER EXT IV SITE IN PLACE BY ED MD), SKIN IS INTACT. SAFETY MEASURES IN PLACE, CALL LIGHT IS WITHIN REACH. ATTEMPTED TO WAKE UP PT, PT ASLEEP, RESPONDS WITH NAME, AND WILL GO BACK TO SLEEP RIGHT AWAY, PER ED RN, PT RECEIVED ATIVAN IN ED. WILL MONITOR PT THROUGHOUT SHIFT.
[2019-04-16 19:56] LABS: APPEARANCE,URINE CLEAR (CLEAR); BILIRUBIN,URINE NEGATIVE (NEGATIVE); BLOOD, URINE NEGATIVE (NEGATIVE); COLOR,URINE YELLOW (YELLOW); LEUKOCYTE ESTERASE ,URINE NEGATIVE (NEGATIVE); NITRITE, URINE NEGATIVE (NEGATIVE); UGLUCOSE NEGATIVE (NEGATIVE)
[2019-04-16 20:00] VITALS: BP 119/38
[2019-04-16] MEDS ORDERED: MAGNESIUM OXIDE 400 MG TAB PO SCH (20:00)
[2019-04-16] MEDS ORDERED: metFORMIN 500 MG TAB PO SCH (21:00)
--- NOTE | 2019-04-16 21:20 | NUR ---
PT ASLEEP, ATTEMPTED TO WAKE UP, PT WOKE UP ASKED FOR THE TIME OF THE DAY. PT SEEMED TO BE CONFUSED. REORIENTED PT TO THE PLACE AND TIME, AND INSISTED THAT HE NEEDS TO LEAVE TO GO TO [facility], AND THAT A BUS WILL PICK HIM UP AT 0645. REORIENTED PT, STARTED TO GET AGITATED, DEMANDED TO TAKE OFF THE IV FROM HIS FOOT, AND THAT HE WANTS TO LEAVE. RESIDENT MD PASSING BY AND TRIED TO TALK TO THE PT. PT DEMANDED FOR RN TO "GET OUT OF HIS FACE". RN STEPPED OUT OF THE RM WHILE MD TALKS TO THE PT. WILL FOLLOW UP WITH MD FOR FURTHER ORDERS. Addendum: 04/17/19 at 0007 by Hansel Auguste RN CORRECTED TIME: 2219
--- NOTE | 2019-04-16 21:30 | NUR ---
ATTEMPTED TO WAKE UP PT, PT UNABLE TO FULLY WAKE UP, RESPONDS TO NAME BUT EASILY FALLS BACK ASLEEP. WILL TRY TO WAKE UP PT AGAIN FOR MEDICATION ADMINISTRATION.
[2019-04-16] MEDS: BACLOFEN 10 MG TAB PO SCH (22:00)
[2019-04-16] MEDS ORDERED: MAGNESIUM HYDROXIDE 2400 MG/30 ML UDC PO PRN (22:10)
[2019-04-16] MEDS ORDERED: SODIUM PHOSPHATE 118 ML ENEM RC PRN (22:10)
[2019-04-16] MEDS ORDERED: BISACODYL 5 MG TABEC PO PRN (22:10)
[2019-04-16] MEDS ORDERED: BISACODYL 10 MG SUPP RC PRN (22:15)
--- NOTE | 2019-04-16 23:50 | NUR ---
PT WENT TO THE RESTROOM, CAME OUT AND NOTICED HIS IV WAS OUT. PT REFUSED FOR NEW IV INSERT. WILL NOTIFY
[2019-04-17] VITALS: BP 125/80
[2019-04-17] MEDS ORDERED: ALBUTEROL SULFATE/IPRATROPIU 3 ML SOL IH PRN (00:20)
[2019-04-17] MEDS: TAMSULOSIN 0.4 MG CAP PO SCH ×2 (00:24→20:31)
[2019-04-17] MEDS ORDERED: ZIPRASIDONE MESYLATE 20 MG/ML VIAL IM SCH (00:30)
[2019-04-17] MEDS: NACL 0.9% 1,000 ML IV SCH ×2 (00:35→17:15)
--- NOTE | 2019-04-17 00:58 | NUR ---
PT WAS ASSESS BY EXPORT SALES ASSISTANT ORDERED BY DR. BLACKMON. PT AWAKE AND ALERT. NO RESPIRATORY DISTRESS NOTED AT THIS TIME. BREATH SOUNDS CLEAR, SPO2 93% ON ROOM AIR, HR 96, AND RR 18. RN AT BEDSIDE. WILL CONTINUE TO MONITOR PT.
[2019-04-17 04:00] VITALS: BP 129/78
[2019-04-17] MEDS: BACLOFEN 10 MG TAB PO SCH ×3 (05:00→20:31)
--- NOTE | 2019-04-17 05:20 | NUR ---
PT CAME OUT OF THE ROOM, REQUESTING FOR MORPHINE PAIN MEDICATION, INFORMED PT THAT IVP CANNOT BE ADMINISTERED SINCE HE DOESN'T HAVE ANY IV SITE. HE GOT AGITATED AND ASKED WHY I TOOK IT OUT, INFORMED PT THAT HE ASKED ME TO TAKE IT OUT, AND WHEN HE CAME OUT OF THE RESTROOM LAST NIGHT, IV WAS ALREADY OUT. INFORMED PT THAT THERE IS A PO PAIN MEDICATION AVAILABLE. WILL MEDICATE PT, BUT WHEN CAME BACK, PT ASLEEP.
[2019-04-17] MEDS: HYDROcodone/APAP 5/325 MG 1 TAB TAB PO PRN (05:27)
--- NOTE | 2019-04-17 05:29 | NUR ---
LAB PERSONNEL AT BEDSIDE TO DRAW MORNING LABS. ADMINISTERED PRN PO PAIN MEDICATION AND PRN DULCOLAX FOR CONSTIPATION. PT TOLERATED THEM WELL. PT WENT BACK TO SLEEP AFTER. PT SLURRING AND MUMBLING WHILE TALKING. PT STILL SOMEWHAT CONFUSED AND DISORIENTED.
--- NOTE | 2019-04-17 05:34 | NUR ---
PT TOOK OFF INDEPENDENT DISTRIBUTOR AND REFUSED TO PUT IT BACK ON. PT TEACHING GIVEN REGARDING HEART MONITOR. PT STILL REFUSED.
[2019-04-17] MEDS: ALBUTEROL SULFATE/IPRATROPIU 3 ML SOL IH SCH ×3 (07:00→18:57)
--- NOTE | 2019-04-17 07:10 | NUR ---
RECEIVED BEDSIDE SHIFT REPORT, PATIENT IS SLEEPING IN BED, IN STABLE CONDITION AT THIS TIME.
[2019-04-17 07:22] LABS: ANION GAP 12.6 (8-16); CARBON DIOXIDE 25.6 mmol/L (21-32); CREATININE 1.7 mg/dL (0.7-1.3); POTASSIUM 4.2 mmol/L (3.5-5.1)
[2019-04-17 07:31] LABS: BASOPHILS % (AUTO) 0.7 % (0.0-2.0); EOSINOPHILS # (AUTO) 0.2 K/uL (0-0.4); EOSINOPHILS % (AUTO) 3.6 % (0.0-4.0); HEMATOCRIT 30.8 % (36-52); HEMOGLOBIN 9.9 g/dL (12.0-18.0); LYMPHOCYTES # (AUTO) 1.3 K/uL (2.0-11.5); LYMPHOCYTES % (AUTO) 19.3 % (20.5-51.1); MEAN CORPUSCULAR HEMOGLOBIN 29 pg (27-31); MEAN CORPUSCULAR HGB CONC 32 g/dL (33-37); MEAN CORPUSCULAR VOLUME 91.3 fL (80-94); MONOCYTES # (AUTO) 0.6 K/uL (0.8-1.0); MONOCYTES % (AUTO) 8.7 % (1.7-9.3); NEUTROPHILS # (AUTO) 4.6 K/uL (1.8-7.7); NEUTROPHILS % (AUTO) 67.7 % (42.2-75.2); PLATELET COUNT (AUTO) 327 K/uL (140-450); RED BLOOD CELL COUNT(AUTO) 3.37 MIL/uL (4.20-6.10); WHITE BLOOD COUNT (AUTO) 6.8 K/uL (4.8-10.8)
[2019-04-17 07:33] LABS: MAGNESIUM 1.8 mg/dL (1.8-2.4); PHOSPHORUS 3.4 mg/dL (2.5-4.9)
[2019-04-17 08:00] VITALS: BP 126/72
[2019-04-17] MEDS ORDERED: SODIUM PHOSPHATE 118 ML ENEM RC SCH (08:00)
--- NOTE | 2019-04-17 08:25 | NUR ---
PATIENT HAS BEEN SCREENED AND CATEGORIZED MODERATE NUTRITION RISK. PATIENT WILL BE SEEN WITHIN 3-5 DAYS OF ADMISSION. 04/19/19 04/21/[address]
[2019-04-17] MEDS ORDERED: BISACODYL 5 MG TABEC PO PRN (08:26)
--- NOTE | 2019-04-17 09:19 | NUR ---
Handmade Tile Artist Note: Basic Screen: Yes High Risk DC Screen Howells: JEWELS Camarillo Relationship: FRIEND Pre-Admission Living Arrangements: Other Other: [facility] ANDERSON Prior ADL Needs Assistance Current Home Health Name/Tel: N/A Current DME/02 Name/Tel: N/A Current Hospice Name/Tel: N/A Current Dialysis Name/Tel: N/A Healthcare Decision Maker: Patient Advance Directive No Discipline: Case Mgt/Social Svcs Tentative Discharge Plan/Destination: Other Other: [facility] Will require assistance post discharge: No Referred to Pie Filling Mixer: No Tentative Discharge Plan Summary: Patient is a 63-year-old male admitted for bowel obstruction. Patient has PMHX of HTN, CHF, asthma, atrial fibrillation, apnea, obesity, BPH, and chronic constipation. Patient was admitted from [facility]. SW contacted Doreen from [facility]. Per Doreen patient has no advanced directive on file and patient is self-responsible with his healthcare decisions. Doreen stated that [facility] is a non-medical facility and that IV antibiotics cannot be accommodated. Per Doreen, patient is expected back after discharge. No further needs identified. Signature: AMRIK Handley Date: Apr 17, 2019 Time: 09:17 Addendum: 04/17/19 at 0920 by Anderson Arriaza SS Error made on previous note. Patient was admitted from [facility] [phone].
--- NOTE | 2019-04-17 09:51 | NUR ---
PATIENT SLEEPING IN BED, NO DISTRESS NOTED AT THIS TIME. WILL CONTINUE TO FOLLOW UP.
--- NOTE | 2019-04-17 10:10 | NUR ---
AT THE BEDSIDE WITH PATIENT FOR FLEET ENEMIA INSERTION D/T HARD STOOLS, PATIENT TOLERATED INSERTION WITHOUT DISTRESS., PATIENT THEN ASSISTED IN THE RESTROOM
--- NOTE | 2019-04-17 10:45 | NUR ---
PATIENT STABLE, STILL IN THE RESTROOM, REQUESTING TO STAY IN THERE FOR LONGER PERIODS. MODERATED STOOL AMOUNT IN THE TOILET NOTED. WILL CONTINUE TO MONITOR.
--- NOTE | 2019-04-17 11:11 | NUR ---
PATIENT ASSISTED BACK INTO BED, NO DISTRESS NOTED. WILL CONTINUE TO MONITOR.
[2019-04-17] MEDS: PANTOPRAZOLE 40 MG INJ VIAL IVP SCH (11:57)
[2019-04-17] MEDS: LORATADINE 10 MG TAB PO SCH (11:57)
[2019-04-17] MEDS: FUROSEMIDE 40 MG TAB PO SCH (11:57)
[2019-04-17] MEDS: LOSARTAN 50 MG TAB PO SCH (11:58)
[2019-04-17] MEDS: SPIRONOLACTONE 25 MG TAB PO SCH (11:59)
[2019-04-17] MEDS: metFORMIN 500 MG TAB PO SCH ×2 (12:00→17:50)
[2019-04-17] MEDS: MORPHINE SULFATE 2 MG/ML SYR IVP PRN ×2 (12:01→18:52)
--- NOTE | 2019-04-17 13:15 | NUR ---
PATIENT SLEEPING IN BED, NO RESP DISTRESS NOTED. WILL CONTINUE TO FOLLOW UP.
--- NOTE | 2019-04-17 14:19 | NUR ---
PT IS NOT AV
--- NOTE | 2019-04-17 15:26 | NUR ---
PATIENT EDUCATED REGARDING HAVING THE TELE MONITOR FOR MONITORING HIS HEART, PATIENT CONTINUES TO REFUSE MONITOR. PATIENT REPOSITIONED, AND CALL LIGHT IN REACH, WILL CONTINUE TO MONITOR
[2019-04-17 16:00] VITALS: BP 136/78
--- NOTE | 2019-04-17 17:05 | NUR ---
PATIENTS SCHEDULED MEDICATIONS GIVEN AT THIS TIME. PATIENT IS STABLE, WILL CONTINUE TO MONITOR.
--- NOTE | 2019-04-17 19:05 | NUR ---
ENDORSED CARE TO CHIEF MEDICAL PHYSICIST NURSE, PATIENT IS STABLE AT THIS TIME.
--- NOTE | 2019-04-17 19:24 | NUR ---
RECEIVED BEDSIDE REPORT FROM DAY SHIFT NURSE. PATIENT IS SLEEPING AROUSABLE BY TOUCH AND NAME. SKIN IS WARM AND DRY. IV PATENT AND INTACT. PLAN OF CARE UPDATED.ALL SAFETY MEASURES IN PLACE. BED IS AT LOW POSITION. CALL LIGHT WITHIN REACH. WILL CONTINUE TO MONITOR.
--- NOTE | 2019-04-17 20:00 | NUR ---
INITIAL ASSESSMENT DONE. VITALS WERE TAKEN. PATIENT IN STABLE CONDITION. WILL CONTINUE TO MONITOR.
--- NOTE | 2019-04-17 20:30 | NUR ---
ALL SCHEDULED MEDS WERE GIVEN PER ORDER. NO ASE NOTED. WILL CONTINUE TO MONITOR.
--- NOTE | 2019-04-17 22:01 | NUR ---
CHECKED ON PATIENT. PATIENT ASLEEP IN BED COMFORTABLY. NO S/SX ACUTE DISTRESS. CALL LIGHT WITHIN REACH. WILL CONTINUE TO MONITOR.
[2019-04-18] VITALS: BP 94/37
[2019-04-18] MEDS ORDERED: NACL 0.9% 250 ML IV ONE (00:15)
--- NOTE | 2019-04-18 00:27 | NUR ---
PATIENT'S BP 94/37 HR 103, NOTIFIED MD WITH NEW ORDER TO BOLUS 250 ML OF NS. WILL CONTINUE TO MONITOR.
--- NOTE | 2019-04-18 00:42 | NUR ---
CRACKLES NOTED UPON AUSCULTATION. PATIENT HAS AN 02 SAT 96% ON 2LPM VIA NC. ABLE TO COUGH UP THIN, WHITE SECRETIONS WELL. NO DISTRESS NOTED. RESPIRATIONS EVEN, UNLABORED. CALL LIGHT WITHIN REACH. WILL CONTINUE TO MONITOR.
--- NOTE | 2019-04-18 01:17 | NUR ---
RECHECKED PATIENT BP 152/63 HR 98. RT AT BEDSIDE. PATIENT GETTING BREATHING TREATMENT.
--- NOTE | 2019-04-18 02:29 | NUR ---
PATIENT ASLEEP. NO S/SX ACUTE DISTRESS. CALL LIGHT WITHIN REACH. WILL CONTINUE TO MONITOR.
--- NOTE | 2019-04-18 04:13 | NUR ---
PATIENT ASLEEP. HIGH FOWLERS FOR COMFORT. RESPIRATIONS EVEN, UNLABORED. NO S/SX ACUTE DISTRESS. CALL LIGHT WITHIN REACH. WILL CONTINUE TO MONITOR.
[2019-04-18] MEDS: BACLOFEN 10 MG TAB PO SCH ×3 (04:55→20:31)
--- NOTE | 2019-04-18 05:08 | NUR ---
ASSISTED PATIENT TO THE BATHROOM. X1 BM. DUE MEDS GIVEN. NO S/SX ACUTE DISTRESS. CALL LIGHT WITHIN REACH. WILL CONTINUE TO MONITOR.
--- NOTE | 2019-04-18 07:00 | NUR ---
RECEIVED REPORT FROM NIGHT BETTY ELLIS. PATIENT IS CURRENTLY IN THE RESTROOM, PATTERN CHAIN BUILDER ASSISTING. PT IS FROM [facility], FULL CODE, ALLERGIES TO PENICILLIN, CODEINE, IODINE. 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 AAOX2-3. PT IS ABLE TO AMBULATE WITH ASSISTANCE DEVICE. WILL REVIEW AND CONTINUE WITH PLAN OF CARE FOR THE DAY
--- NOTE | 2019-04-18 07:11 | NUR ---
ENDORSE GIVEN TO DAYSHIFT NURSE. PATIENT IS STABLE.
[2019-04-18] MEDS: ALBUTEROL SULFATE/IPRATROPIU 3 ML SOL IH SCH ×3 (07:18→19:11)
[2019-04-18 07:31] LABS: ANION GAP 11.8 (8-16); CARBON DIOXIDE 26.4 mmol/L (21-32); CREATININE 1.8 mg/dL (0.7-1.3); POTASSIUM 4.2 mmol/L (3.5-5.1)
[2019-04-18 07:41] LABS: PHOSPHORUS 3.9 mg/dL (2.5-4.9)
[2019-04-18 08:00] VITALS: BP 135/66
[2019-04-18] MEDS ORDERED: FUROSEMIDE 20 MG/2 ML VIAL IVP SCH (08:06)
[2019-04-18] MEDS ORDERED: cefTRIAXone 2,000 MG in DEXTROSE 5% 100 ML IV SCH (09:00)
[2019-04-18 09:02] LABS: BASOPHILS # (AUTO) 0.1 K/uL (0.00-0.22); BASOPHILS % (AUTO) 0.4 % (0.0-2.0); EOSINOPHILS # (AUTO) 0.1 K/uL (0-0.4); EOSINOPHILS % (AUTO) 0.8 % (0.0-4.0); HEMATOCRIT 31.8 % (36-52); LYMPHOCYTES # (AUTO) 1.6 K/uL (2.0-11.5); LYMPHOCYTES % (AUTO) 9.9 % (20.5-51.1); MEAN CORPUSCULAR HEMOGLOBIN 29 pg (27-31); MEAN CORPUSCULAR HGB CONC 32 g/dL (33-37); MEAN CORPUSCULAR VOLUME 91.1 fL (80-94); MONOCYTES # (AUTO) 1.1 K/uL (0.8-1.0); MONOCYTES % (AUTO) 6.7 % (1.7-9.3); NEUTROPHILS # (AUTO) 13.6 K/uL (1.8-7.7); NEUTROPHILS % (AUTO) 82.2 % (42.2-75.2); PLATELET COUNT (AUTO) 350 K/uL (140-450); RED BLOOD CELL COUNT(AUTO) 3.49 MIL/uL (4.20-6.10); RED CELL DISTRIBUTION WIDTH 16.9 % (11.6-13.7); WHITE BLOOD COUNT (AUTO) 16.6 K/uL (4.8-10.8)
[2019-04-18] MEDS: PANTOPRAZOLE 40 MG INJ VIAL IVP SCH (09:09)
[2019-04-18] MEDS: LORATADINE 10 MG TAB PO SCH (09:19)
[2019-04-18] MEDS: FUROSEMIDE 40 MG TAB PO SCH (09:19)
[2019-04-18] MEDS: LOSARTAN 50 MG TAB PO SCH (09:20)
[2019-04-18] MEDS: SPIRONOLACTONE 25 MG TAB PO SCH (09:20)
--- NOTE | 2019-04-18 09:45 | NUR ---
ADMINISTERED MORNING MEDICATION. PATIENT TOLERATED WELL. GAVE IVP LASIX, VITAL SIGNS WNL PRIOR. PATIENT AMBULATED TO RESTROOM AND HAD ONE LARGE BM AND X2 VOIDS. PATIENT IS BACK IN BED, SITTING UP TO EAT BREAKFAST
--- NOTE | 2019-04-18 11:15 | NUR ---
PATIENT HAS BEEN PLACED ON FALL RISK PRECAUTION FOR EXTREME LETHARGY. WHEN PATIENT IS LETHARGIC HE IS DIFFICULT TO AROUSE AT TIMES. WHEN AROUSED, HE IS AAOX2. PATIENTS BLOOD SUGAR IS 91, VITAL SIGNS WNL, ON 2L NC. WILL CONTINUE TO MONITOR
--- NOTE | 2019-04-18 11:35 | NUR ---
* ST NOTE * Pt seen at bedside. Pt asleep upon entering room. Upon awakening, pt alert but lethargic, reporting no c/o pain at this time. Bedside dysphagia and oral mechanism exams completed. See evaluation report for further details. Pt tolerating 3/3 alternating PO trials of regular solid saltine crackers w/o s/s of aspiration but presenting with mild residue on lingua after PO intake. Pt however clearing oral cavity of residue after utilizing alternating btwn solids & liquids safe swallow compensatory strategy as trained by clinician, requiring maximal tactile, visual and verbal cues. Pt tolerating 5/5 alternating PO trials of thin liquid apple juice via a cup, all w/o s/s of aspiration or choking. Pt and caregiver/nsg education completed re: aspiration precautions and safe swallow compensatory strategies, w/pt indifferent but caregiver/Nsg Inoa verbalizing understanding and agreement w/clinician's recommendations. Because pt lethargic and oriented x1, as well as because pt presenting with residue in oral cavity after PO intake of regular solids, it is thus recommended pt's PO diet consistency be modified to mechanical soft-GROUND textures w/thin liquids for all meals, w/strict aspiration precautions in place. No further ST follow up recommended at this time. Pt and caregiver/Nsg Iona education completed re: results of evaluation; benefits of abiding by aspiration precautions and recommended PO diet consistency; and prognosis for improvement; w/pt indifferent but caregiver/nsg verbalizing understanding and agreement w/clinician's recommendations. Recommend: - PO DIET CONSISTENCY OF MECHANICAL SOFT-GROUND TEXTURES W/THIN LIQUIDS for all meals - PO MEDICATION ADMINISTRATION CRUSHED IN PUREE OR GROUND TEXTURES - MAINTAIN STRICT ASPIRATION PRECAUTIONS DURING PT'S PO INTAKE - Pt requires assistance w/feeding - Feeder to SIT PT UP AT 80-90 DEGREE ANGLE DURING PO INTAKE; FEED PT SLOWLY; ALTERNATE BTWN SOLIDS & LIQUIDS; AND PROVIDE SMALL BITES/SIPS - ONLY FEED PT WHEN ALERT/AWAKE No further ST follow up recommended at this time. NOMS Level 3 Time In/Out 10:25 - 10:55
[2019-04-18] MEDS: metroNIDAZOLE 500 MG/NS PREMIX 100 ML IV SCH ×2 (13:42→21:31)
--- NOTE | 2019-04-18 13:43 | NUR ---
PATIENT REFUSED BACLOFEN. ADMINISTERED NEXT DOSE FLAGYL.
[2019-04-18 16:00] VITALS: BP 130/70
--- NOTE | 2019-04-18 19:05 | NUR ---
RECD. RESTING IN BED, AWAKE, A/OX2, RESPIRATION EVEN AND UNLABORED. 02 AT 2 LITERS VIA N/C, NO SOB NOTED. IV SALINE LOCK AT THE LEFT HAND G22, PATENT AND INTACT. NOTED PITTING EDEMA ON BILATERAL LOWER EXTREMITIES, 1+ AT THE RIGHT AND 2+ AT THE LEFT. ELEVATED ON PILLOWS.VOIDING WELL.SAFETY MEASURES ENFORCED. BED ON THE LOWEST POSITION, CALL LIGHT IN REACHED. PLAN OF CARE FOR THE SHIFT DISCUSSED. NEEDS REINFORCEMENT. DENIES PAIN 0/10.
--- NOTE | 2019-04-18 19:15 | NUR ---
HAVEN'T EATEN HIS DINNER. WARM FOOD. REPOSITIONED IN BED TO BE ABLE TO EAT COMFORTABLY.
--- NOTE | 2019-04-18 19:23 | NUR ---
RECEIVED PATIENT ON 2L NASAL CANNULA, PULSE OX SAT 97%. SCHEDULED BREATHING TREATMENT ADMINISTERED. TOLERATED WELL WITHOUT ADVERSE SIDE EFFECTS. NO ACUTE RESPIRATORY DISTRESS NOTED AT THIS TIME. WILL CONTINUE TO MONITOR.
--- NOTE | 2019-04-18 19:35 | NUR ---
BOX CAR WASHER CALLED PATIENT IS POSITIVE FOR MRSA OF [place], INFORMED DR. MURRAY, WILL ORDER BACTROBAN.
--- NOTE | 2019-04-18 20:00 | NUR ---
Patient's Plan of Care was discussed and reviewed with TAILOR'S AIDE: HOWARD
[2019-04-18] MEDS: TAMSULOSIN 0.4 MG CAP PO SCH (20:31)
--- NOTE | 2019-04-18 20:45 | NUR ---
JUST TOOK A FEW BITES, UNABLE TO EAT MORE OF THE MEAL. WAKEN UP TO EAT MORE BUT JUST OPEN EYES AND BACK TO SLEEP AGAIN. VS STABLE.
[2019-04-19] VITALS: BP 125/69
--- NOTE | 2019-04-19 01:00 | NUR ---
HAD SMALL AMOUNT OF SOFT BM, YELLOW COLOR. CLEANSED AND REPOSITIONED IN BED. SNACK GIVEN. PATIENT HANDS SHAKES OCCASIONALLY. ASSISTED TO EAT, ABLE TO EAT 100%.
--- NOTE | 2019-04-19 02:00 | NUR ---
STILL AWAKE, ADVISED TO GO BACK TO SLEEP. WARM BLANKETS GIVEN.
--- NOTE | 2019-04-19 02:30 | NUR ---
HAD A LARGE SOFT LOOSE BM. CLEANSED AND REPOSITIONED IN BED FOR COMFORT.
--- NOTE | 2019-04-19 03:00 | NUR ---
STILL AWAKE IN BED. NO DISTRESS NOTED.
--- NOTE | 2019-04-19 03:45 | NUR ---
FALL ASLEEP BUT OCCASIONALLY WAKES UP.
[2019-04-19] MEDS: metroNIDAZOLE 500 MG/NS PREMIX 100 ML IV SCH (04:20)
[2019-04-19] MEDS: BACLOFEN 10 MG TAB PO SCH (04:45)
[2019-04-19] MEDS: HYDROcodone/APAP 5/325 MG 1 TAB TAB PO PRN (04:46)
[2019-04-19] MEDS ORDERED: BACLOFEN 10 MG TAB PO PRN (06:25)
[2019-04-19 06:37] LABS: BASOPHILS % (AUTO) 0.3 % (0.0-2.0); EOSINOPHILS # (AUTO) 0.3 K/uL (0-0.4); EOSINOPHILS % (AUTO) 2.3 % (0.0-4.0); HEMATOCRIT 32.9 % (36-52); HEMOGLOBIN 10.6 g/dL (12.0-18.0); LYMPHOCYTES # (AUTO) 1.1 K/uL (2.0-11.5); LYMPHOCYTES % (AUTO) 8.8 % (20.5-51.1); MEAN CORPUSCULAR HEMOGLOBIN 29 pg (27-31); MEAN CORPUSCULAR HGB CONC 32 g/dL (33-37); MEAN CORPUSCULAR VOLUME 91.1 fL (80-94); MONOCYTES # (AUTO) 0.7 K/uL (0.8-1.0); MONOCYTES % (AUTO) 6.1 % (1.7-9.3); NEUTROPHILS # (AUTO) 10.2 K/uL (1.8-7.7); NEUTROPHILS % (AUTO) 82.5 % (42.2-75.2); PLATELET COUNT (AUTO) 379 K/uL (140-450); RED BLOOD CELL COUNT(AUTO) 3.61 MIL/uL (4.20-6.10); RED CELL DISTRIBUTION WIDTH 17.1 % (11.6-13.7); WHITE BLOOD COUNT (AUTO) 12.4 K/uL (4.8-10.8)
[2019-04-19] MEDS ORDERED: VANCOMYCIN PER PHARMACY MC PRN (06:40)
--- NOTE | 2019-04-19 06:45 | NUR ---
KEEPS ON CALLING NURSE, ANSWERED PROMPTLY. ALL NEEDS ATTENDED. CONDITION REMAIN STABLE. WILL ENDORSE TO AM SHIFT NURSE FOR CONTINUITY OF CARE.
[2019-04-19 06:46] LABS: CARBON DIOXIDE 27.7 mmol/L (21-32); CREATININE 1.5 mg/dL (0.7-1.3); POTASSIUM 3.7 mmol/L (3.5-5.1)
[2019-04-19 07:04] LABS: MAGNESIUM 1.9 mg/dL (1.8-2.4); PHOSPHORUS 2.3 mg/dL (2.5-4.9)
--- NOTE | 2019-04-19 07:10 | NUR ---
ENDORSED TO BETTY PORTILLO FOR CONTINUITY OF CARE.
--- NOTE | 2019-04-19 07:11 | NUR ---
RECEIVED REPORT FORM PAPER FINAL INSPECTOR NURSE. PATIENT LYING DOWN IN BED SLEEPING, AROUSABLE BY VOICE. NO DISTRESS NOTED. DENIES ANY PAIN. AAOX3, CALM, COOPERATIVE, SKIN COLOR APPROPRIATE TO ETHNICITY, WARM TO TOUCH. SKIN COLOR APPROPRIATE TO ETHNICITY. SKIN INTACT. BLE +2 PITTING EDEMA NOTED. IV SITE INTACT, PATENT, AND INFUSING IVF PER MD ORDERS. REVIEWED PLAN OF CARE WITH PATIENT. PATIENT VERBALIZED UNDERSTANDING. SAFETY MEASURES IN PLACE, CALL LIGHT WITHIN REACH. WILL CONTINUE TO MONITOR.
[2019-04-19] MEDS: ALBUTEROL SULFATE/IPRATROPIU 3 ML SOL IH SCH (07:38)
[2019-04-19 08:00] VITALS: BP 121/78
[2019-04-19] MEDS ORDERED: BACL10TA4 PO (08:06)
[2019-04-19] MEDS ORDERED: SULF-58 PO (08:06)
[2019-04-19] MEDS ORDERED: MUPIROCIN CA NASAL 2% 1GM TUBE NS SCH (09:00)
[2019-04-19] MEDS ORDERED: CHLORHEXADINE GLUC 2% CLOTH TP SCH (09:00)
--- NOTE | 2019-04-19 09:25 | NUR ---
CONTACTED RAJEEV AGUILA REGARDING PT'S DISCHARGE BACK TO THEIR FACILITY, SPOKE WITH ANDRES, STATED THAT THEIR STOPE MINER WILL DERRICK OPERATOR THE PT AT 11 AM TODAY. LESLEY ASSIGNED MADE AWARE.
[2019-04-19] MEDS: LORATADINE 10 MG TAB PO SCH (09:58)
[2019-04-19] MEDS: PANTOPRAZOLE 40 MG INJ VIAL IVP SCH (09:58)
[2019-04-19] MEDS: SPIRONOLACTONE 25 MG TAB PO SCH (09:59)
[2019-04-19] MEDS: LOSARTAN 50 MG TAB PO SCH (09:59)
[2019-04-19] MEDS: FUROSEMIDE 40 MG TAB PO SCH (09:59)
--- NOTE | 2019-04-19 11:02 | NUR ---
DISCHARGE INSTRUCTIONS PROVIDED TO PATIENT IN PREFERRED LANGUAGE OF PANAMANIAN. INSTRUCTIONS ON FOLLOW-UP WITH PCP, NEW/CHANGED MEDICATION REGIMEN AND SIDE EFFECTS, AND DIET REGIMEN. ANSWERED ALL OF PATIENT'S QUESTIONS REGARDING DISCHARGE. PATIENT VERBALIZED COMPLETE UNDERSTANDING. [facility] TRANSPORT TO COME AT 11:00 TO TAKE PATIENT BACK. IV SITE REMOVED WITH MINIMAL BLOOD AND LUMEN COMPLETELY INTACT. ID BANDS REMOVED. AWAITING FOR TRANSPORT TO ARRIVE. WILL CONTINUE TO MONITOR.
--- NOTE | 2019-04-19 11:50 | NUR ---
PATIENT'S TRANSPORT ARRIVED. ESCORTED PATIENT DOWN TO [facility]IA AMBULATION WITH ROLLATOR. PATIENT DISCHARGED TO [facility] AT THIS TIME IN STABLE CONDITION VIA PRIVATE VEHICLE.
== END 2019-04-19 11:50 | disposition home or self-care (01) | DRG 91 ==
LOC: MED 17:03 → MTU 19:03
PROVIDERS: ADMIT General Practice; ATTEND General Practice
DX: G92 Toxic encephalopathy (principal); N17.0 Acute kidney failure with tubular necrosis; I50.43 Acute on chronic combined systolic (congestive) and diastolic (congestive) heart failure; E44.0 Moderate protein-calorie malnutrition; Z68.41 Body mass index [BMI] 40.0-44.9, adult; I42.9 Cardiomyopathy, unspecified; K57.90 Diverticulosis of intestine, part unspecified, without perforation or abscess without bleeding; E66.01 Morbid (severe) obesity due to excess calories; I25.10 Atherosclerotic heart disease of native coronary artery without angina pectoris; G47.33 Obstructive sleep apnea (adult) (pediatric); N40.0 Benign prostatic hyperplasia without lower urinary tract symptoms; I50.9 Heart failure, unspecified; I11.0 Hypertensive heart disease with heart failure; J44.9 Chronic obstructive pulmonary disease, unspecified; K21.9 Gastro-esophageal reflux disease without esophagitis; I48.91 Unspecified atrial fibrillation; K59.09 Other constipation; Z96.643 Presence of artificial hip joint, bilateral; D64.9 Anemia, unspecified; D63.8 Anemia in other chronic diseases classified elsewhere; G89.4 Chronic pain syndrome; M17.0 Bilateral primary osteoarthritis of knee; E83.42 Hypomagnesemia; E11.9 Type 2 diabetes mellitus without complications; J40 Bronchitis, not specified as acute or chronic; Z88.5 Allergy status to narcotic agent; Z88.0 Allergy status to penicillin; Z91.041 Radiographic dye allergy status; Z95.810 Presence of automatic (implantable) cardiac defibrillator; Z90.49 Acquired absence of other specified parts of digestive tract; Z82.49 Family history of ischemic heart disease and other diseases of the circulatory system; Z87.891 Personal history of nicotine dependence; T50.995A Adverse effect of other drugs, medicaments and biological substances, initial encounter
CPT/HCPCS: 36415; 71045; 80048; 80053; 81003; 82150; 82948; 83690; 83735; 83880; 84100; 84484; 85025; 85610; 85730; 87081; 92610; 93005; 94640; 96374; 96375; 99285; C9113; J0696; J1644; J1885; J1940; J2060; J2270; J2765; J3486; J3490; J7030; J7060; J7620; Q0092

== ENCOUNTER 2019-05-27 09:22 | Inpatient (IN) | payer OTHER, MEDICAID ==
[~2019-05-27] VITALS: Ht 177.8 cm; Wt 127.0 kg
[~2019-05-27 09:22] MED LIST changes: +ACET-8211 PO; -ALBU3SOL83 IH; +ATRN INH; +BACL10TA4 PO; -BACL5TAB PO; +BISA5ECT45 PO; -CARV3.12 PO; -CLIN300C6 PO; +FLEPED RC; -HYD1C TP; -LACT10CA PO; -MSCON15 PO; -OSC500 PO; -PRED10TA5 PO; -ROB PO; +SULF-58 PO
--- NOTE | 2019-05-27 09:22 | NUR ---
Patient GRAYSON [facility] from [facility], transferred to bed 4. evaluating patient at bedside.
[2019-05-27 09:23] VITALS: BP 120/54
--- NOTE | 2019-05-27 09:41 | NUR ---
ad PT BIBA TO ED FOR EVALUATION OF SOB. PT STATED BEEN HAVING GENERALIZE DWEAKNESS X 1 WK, SOB X 1HR. ALSO STATED PALPITATION. BL LUNG MILD WHEEZES. HR EVEN AND REGULAR; PT DENIES ANY FEVER OR COUGH AT THIS TIME; PATIENT STATES PAIN OF 7/10 AT THIS TIME; VSS; PATIENT POSITIONED FOR COMFORT; HOB ELEVATED; BEDRAILS UP X2; BED DOWN. ER MD MADE AWARE OF PT STATUS. PT IS ON MONITOR.
[2019-05-27] MEDS ORDERED: KETOROLAC 30 MG/ML VIAL IVP ONE (09:50)
[2019-05-27 10:42] LABS: BASOPHILS % (AUTO) 0.4 % (0.0-2.0); EOSINOPHILS # (AUTO) 0.2 K/uL (0-0.4); EOSINOPHILS % (AUTO) 2.8 % (0.0-4.0); HEMATOCRIT 31.4 % (36-52); HEMOGLOBIN 10.1 g/dL (12.0-18.0); LYMPHOCYTES # (AUTO) 2.2 K/uL (2.0-11.5); LYMPHOCYTES % (AUTO) 31.1 % (20.5-51.1); MEAN CORPUSCULAR HEMOGLOBIN 30 pg (27-31); MEAN CORPUSCULAR HGB CONC 32 g/dL (33-37); MEAN CORPUSCULAR VOLUME 92.3 fL (80-94); MONOCYTES # (AUTO) 0.6 K/uL (0.8-1.0); MONOCYTES % (AUTO) 8.8 % (1.7-9.3); NEUTROPHILS % (AUTO) 56.9 % (42.2-75.2); PLATELET COUNT (AUTO) 346 K/uL (140-450); RED BLOOD CELL COUNT(AUTO) 3.41 MIL/uL (4.20-6.10); RED CELL DISTRIBUTION WIDTH 16.8 % (11.6-13.7)
[2019-05-27 10:57] LABS: ALBUMIN 3.1 g/dL (3.4-5.0); ANION GAP 10.2 (8-16); CARBON DIOXIDE 28.6 mmol/L (21-32); CREATININE 1.8 mg/dL (0.6-1.3); POTASSIUM 4.8 mmol/L (3.5-5.1); TOTAL BILIRUBIN 0.2 mg/dL (0.0-1.0)
--- NOTE | 2019-05-27 11:01 | NUR ---
CAYETANO AND JUICE PROVIDED TO PT. PT IS EATING IN THE BED W/ VSS.
[2019-05-27] MEDS ORDERED: ACETAMINOPHEN EXTRA STRENGTH 500 MG TAB PO ONE (11:30)
[2019-05-27] MEDS ORDERED: methylPREDNISolone SS 125 MG in WATER STERILE 2 ML IV ONE (11:30)
[2019-05-27] MEDS ORDERED: MAG SULF 2000 MG/WATER PREMIX 50 ML IV ONE (11:30)
[2019-05-27] MEDS ORDERED: POTA10TA34 PO (11:30)
[2019-05-27] MEDS ORDERED: IBUP200C97 PO (11:32)
[2019-05-27] MEDS ORDERED: METO25TE71 PO (11:34)
[2019-05-27] MEDS ORDERED: ONDANSETRON 4 MG/2 ML VIAL IVP PRN (11:35)
[2019-05-27] MEDS ORDERED: ACETAMINOPHEN 325 MG TAB PO PRN (11:35)
[2019-05-27] MEDS ORDERED: ALBUTEROL SULFATE/IPRATROPIU 3 ML SOL IH PRN (11:35)
[2019-05-27] MEDS ORDERED: methylPREDNISolone SS 125 MG/2 ML VIAL ONE (11:41)
[2019-05-27] MEDS ORDERED: WATER STERILE 10 ML MC ONE (11:41)
[2019-05-27] MEDS ORDERED: cefTRIAXone 1,000 MG VIAL ONE (11:44)
[2019-05-27] MEDS ORDERED: APIX5TAB PO (11:46)
[2019-05-27] MEDS ORDERED: CYCL10TA13 PO (11:46)
[2019-05-27] MEDS: ALBUTEROL SULFATE/IPRATROPIU 3 ML SOL IH SCH ×2 (12:00→20:27)
--- NOTE | 2019-05-27 12:00 | NUR ---
PT IS RESTING IN THE BED W/ EYES CLOSED. PT IS ON MONITOR W/ VSS.
[2019-05-27 12:13] LABS: FREE T4 (FREE THYROXINE) 0.68 ng/dL (0.76-1.46); MAGNESIUM 1.8 mg/dL (1.8-2.4); THYROID STIMULATING HORMONE 5.81 uIU/mL (0.34-3.74)
[2019-05-27 13:05] VITALS: BP 131/60
--- NOTE | 2019-05-27 13:05 | NUR ---
RECEIVED BEDSIDE REPORT FROM ED NURSE. PT LYING IN BED UPON ARRIVAL. ABLE TO MAKE NEEDS KNOWN. SKIN WARM AND DRY TO TOUCH. RESPIRATIONS EVEN AND UNLABORED WITH NO SOB OR RESPIRATORY DISTRESS. IV SITE IN RIGHT WRIST 24G IS CLEAN, DRY, AND INTACT. MRSA SWAB PERFORMED. SAFETY MEASURES IN PLACE. WILL CONTINUE TO MONITOR.
--- NOTE | 2019-05-27 13:05 | NUR ---
Patient will be admitted to care of BRONCHITIS, HYPOXEMIA. Admited to MED-SURG. Will go to room 110B. Belongings list completed. Report to BETTY RAZO.
[2019-05-27 14:01] LABS: APPEARANCE,URINE CLEAR (CLEAR); BILIRUBIN,URINE NEGATIVE (NEGATIVE); BLOOD, URINE NEGATIVE (NEGATIVE); COLOR,URINE YELLOW (YELLOW); LEUKOCYTE ESTERASE ,URINE NEGATIVE (NEGATIVE); NITRITE, URINE NEGATIVE (NEGATIVE); UGLUCOSE NEGATIVE (NEGATIVE)
[2019-05-27 14:07] LABS: BARBITURATE, URINE NEG. ng/ml (NEG <=200); BENZODIAZEPINE, URINE NEG. ng/mL (NEG <=200); CANNABINOID, URINE NEG. ng/mL (NEG <=50); COCAINE, URINE NEG. ng/mL (NEG <=300); OPIATE, URINE NEG. ng/mL (NEG <=2000); PHENCYCLIDINE SCREEN,URINE NEG. ng/mL (NEG <=25)
[2019-05-27] MEDS: HYDROcodone/APAP 7.5/325 MG 1 TAB PO PRN ×2 (15:01→21:56)
--- NOTE | 2019-05-27 15:01 | NUR ---
PT COMPLAINED OF PAIN. PRN PAIN MEDICATION ADMINISTERED TO PATIENT. MEDICATION EDUCATION PERFORMED. PT VERBALIZED UNDERSTANDING. SAFETY MEASURES IN PLACE. WILL CONTINUE TO MONITOR
[2019-05-27] MEDS: NACL 0.9% 1,000 ML IV SCH (15:06)
[2019-05-27 16:00] VITALS: BP 152/85
[2019-05-27] MEDS ORDERED: HYDROmorphone 1 MG/ML AMP IVP ONE (16:55)
--- NOTE | 2019-05-27 17:11 | NUR ---
HOURLY ROUNDING. PT LYING IN BED UPON ARRIVAL. ABLE TO MAKE NEEDS KNOWN. SKIN WARM AND DRY TO TOUCH. RESPIRATIONS EVEN AND UNLABORED WITH NO SOB OR RESPIRATORY DISTRESS. SAFETY MEASURES IN PLACE. WILL CONTINUE TO MONITOR.
[2019-05-27] MEDS ORDERED: AZITHROMYCIN 250 MG TAB PO SCH (17:45)
[2019-05-27] MEDS ORDERED: AZITHROMYCIN 250 MG TAB ONE (18:16)
[2019-05-27] MEDS: cefTRIAXone 1,000 MG VIAL ONE ×2 (18:16→18:26)
[2019-05-27] MEDS ORDERED: HYDROmorphone 1 MG/ML AMP ONE (18:17)
[2019-05-27] MEDS ORDERED: SODIUM PHOSPHATE PEDIATRIC 67.5 ML ENEM RC PRN (18:55)
[2019-05-27] MEDS ORDERED: BACLOFEN 10 MG TAB PO SCH ×2 (18:55→21:40)
[2019-05-27] MEDS ORDERED: traMADol 50 MG TAB PO PRN (18:55)
[2019-05-27] MEDS ORDERED: BISACODYL 5 MG TABEC PO PRN (18:55)
[2019-05-27] MEDS ORDERED: HYDROcodone/APAP 5/325 MG 1 TAB TAB PO SCH (18:55)
--- NOTE | 2019-05-27 19:25 | NUR ---
ENDORSED TO NIGHTSHIFT NURSE. PT LYING IN BED UPON ARRIVAL. ABLE TO MAKE NEEDS KNOWN. SKIN WARM AND DRY TO TOUCH. RESPIRATIONS EVEN AND UNLABORED WITH NO SOB OR RESPIRATORY DISTRESS. SAFETY MEASURES IN PLACE. PT IS STABLE
--- NOTE | 2019-05-27 19:26 | NUR ---
RECD. RESTING IN BED, AWAKE, A/OX3, WITH OCCASIONAL FORGETFULNESS. RESPIRATION EVEN AND UNLABORED. ON 02 AT 2 LITERS N/C, 02 SAT - 95%. IV OF NS AT 50 ML/HR INFUSING, RIGHT WRIST G24. LUNG SOUNDS DIMINISHED ON BILATERAL LUNG AUSCULTATION, STATED HE HAS PRODUCTIVE COUGH WITH MODERATE AMOUNT OF YELLOWISH PHLEGM. PLAN OF CARE DISCUSSED, NEEDS REINFORCEMENT. VERY NEEDY, TELLS A LOT OF THINGS FOR THE NURSE TO DO FOR HIM. DENIES PAIN 0/10.
[2019-05-27 20:00] VITALS: BP 130/79
--- NOTE | 2019-05-27 20:55 | NUR ---
PHARMACIST CALLED PATIENT CAN'T BE ON ELIQUIS AND HEPARIN AT THE SAME TIME, NEED TO VERIFY REGARDING FREQUENCY AND INDICATION OF PRN PAIN MEDICATIONS. WILL CALL DR. YIN.
[2019-05-27] MEDS ORDERED: CYCLOBENZAPRINE 10 MG TAB PO SCH (21:00)
--- NOTE | 2019-05-27 21:00 | NUR ---
Patient's Plan of Care was discussed and reviewed with MODELING ANALYST: JOSE LAWRENCE
[2019-05-27] MEDS: TAMSULOSIN 0.4 MG CAP PO SCH (21:36)
[2019-05-27] MEDS: PSYLLIUM 12.2 GM/PKT PO SCH (21:37)
[2019-05-27] MEDS: DOCUSATE SODIUM 100 MG GELCAP PO SCH (21:37)
[2019-05-27] MEDS ORDERED: ZOLPIDEM 5 MG TAB PO SCH (21:50)
[2019-05-27] MEDS: APIXABAN 2.5 MG TAB PO SCH (22:04)
--- NOTE | 2019-05-27 22:06 | NUR ---
UNABLE TO SLEEP, MEDICATED WITH AMBIEN 5 MG. PO ORDERED.
--- NOTE | 2019-05-27 22:15 | NUR ---
INQUIRED TO DR. YIN IF IT IS OK TO GIVE BACLOFEN, PATIENT WAS GIVEN SCHEDULED FLEXERIL AT 2137, STATED OK TO GIVE.
--- NOTE | 2019-05-27 23:00 | NUR ---
STILL AWAKE IN BED, ADVISED TO GO TO SLEEP.
--- NOTE | 2019-05-27 23:30 | NUR ---
REFUSED TO BE CONNECTED TO IV MACHINE.
[2019-05-28] VITALS: BP 117/63
--- NOTE | 2019-05-28 | NUR ---
SLEEPING COMFORTABLY IN BED.
--- NOTE | 2019-05-28 01:30 | NUR ---
AWAKE, SITTING IN BED. REQUESTING FOR MORE COFFEE. ADVISED NOT TOO DRINK MUCH COFFEE BUT STATED "DON'T WORRY ABOUT ME, WORRY ABOUT YOURSELF." REMINDED THAT MD ADVISED HIM TO LOSE WEIGHT. STATED "IT'S HARD".
--- NOTE | 2019-05-28 02:00 | NUR ---
REQUESTED FOR ANOTHER CUP OF COFFEE, GETS MAD IF COFFEE IS NOT GIVEN.
--- NOTE | 2019-05-28 02:30 | NUR ---
SLEEPING COMFORTABLY IN BED.
--- NOTE | 2019-05-28 05:10 | NUR ---
WOKE UP CONFUSED. INSISTING THE BUS WILL COME TO TAKE HIM FOR CHECK UP. REQUESTED NURSE TO ASSIST HIM WITH DRESSING, TOOK OF GOWN AND STARTED PUTTING SOCKS AND SHOES. REORIENTED TO HOSPITAL SETTING, STILL DOES NOT BELIEVED. ASSUMED HE IS [facility], LOOKING FOR HIS CABINET OF CLOTHES. DR. YIN CAME AND SPOKE WITH PATIENT, REORIENTED TO HOSPITAL SETTING. PATIENT SITS AND REQUESTED FOR COFFEE AND SANDWICH.
--- NOTE | 2019-05-28 05:20 | NUR ---
REQUESTED TO LAY IN BED AND GO BACK TO SLEEP. REFUSED RIGHT SIDE RAILS TO BE PUT UP, EXPLAINED THIS IS FOR SAFETY TO PREVENT HIM FROM FALLING, STILL INSISTED NOT TO PUT BACK THE SIDE RAIL IN PLACE.
[2019-05-28] MEDS: ALBUTEROL SULFATE/IPRATROPIU 3 ML SOL IH SCH ×3 (06:00→20:03)
[2019-05-28] MEDS: LEVOTHYROXINE 0.05 MG TAB PO SCH (06:29)
--- NOTE | 2019-05-28 07:00 | NUR ---
STILL SLEEPING COMFORTABLY IN BED, RESPIRATION EVEN AND UNLABORED. CONDITION REMAIN STABLE. ALL NEEDS ATTENDED. ENDORSED TO AM SHIFT NURSE FOR CONTINUITY OF CARE.
--- NOTE | 2019-05-28 07:05 | NUR ---
RECEIVED REPORT FROM MARKETING SUMMER INTERN NURSE. PT IS SLEEPING, NO SIGNS OF DISTRESS. CALL LIGHT WITHIN PT'S REACH, BED ON LOW, SIDERAILS UP. PT IS ON RENAL DIET, FULL CODE. WILL CONTINUE TO MONITOR
[2019-05-28 08:00] VITALS: BP 144/83
[2019-05-28] MEDS ORDERED: METOPROLOL SUCCINATE 50 MG TABER PO SCH ×2 (08:30→09:00)
[2019-05-28] MEDS: methylPREDNISolone SS 125 MG/2 ML VIAL IVP SCH ×3 (08:30→23:12)
[2019-05-28] MEDS: DOCUSATE SODIUM 100 MG GELCAP PO SCH ×2 (08:30→20:32)
[2019-05-28] MEDS ORDERED: POTASSIUM CHLORIDE 10 MEQ PO SCH (08:30)
[2019-05-28] MEDS ORDERED: METOPROLOL SUCCINATE 200 MG PO SCH (08:30)
--- NOTE | 2019-05-28 08:30 | NUR ---
SCHEDULED MEDS GIVEN. MEDICATION EDUCATION GIVEN AND SIDE EFFECTS, PT VERBALIZED UNDERSTANDING. WILL CONTINUE TO MONITOR
[2019-05-28] MEDS: SPIRONOLACTONE 25 MG TAB PO SCH (08:31)
[2019-05-28] MEDS: POTASSIUM CHLORIDE 10 MEQ TABER PO SCH (08:31)
[2019-05-28] MEDS: AZITHROMYCIN 250 MG TAB PO SCH (08:31)
[2019-05-28] MEDS: FUROSEMIDE 40 MG TAB PO SCH (08:32)
[2019-05-28] MEDS: PSYLLIUM 12.2 GM/PKT PO SCH ×2 (08:33→20:39)
[2019-05-28] MEDS: APIXABAN 2.5 MG TAB PO SCH ×2 (08:34→20:35)
[2019-05-28] MEDS ORDERED: UMECLIDINIUM BROMIDE 62.5 MCG IH SCH (09:00)
[2019-05-28] MEDS ORDERED: LOSARTAN 50 MG TAB PO SCH (09:00)
[2019-05-28] MEDS ORDERED: IBUPROFEN 800 MG TAB PO SCH (09:00)
[2019-05-28] MEDS ORDERED: PANTOPRAZOLE 40 MG TABEC PO SCH (09:00)
[2019-05-28] MEDS ORDERED: BISACODYL 5 MG TABEC PO PRN (09:33)
--- NOTE | 2019-05-28 09:40 | NUR ---
RECEIVED CALL FROM PHARMACY TO ASK PT WITH ELLIPTA MEDICATION IF HE HAS ELLIPTA INHALER WITH HIM. ASKED PT AND HE SAID NO. PT CAME FROM [facility]. RELAYED MSG TO PHARMACY AND THEY SAID OK NOT TO GIVE IT.
--- NOTE | 2019-05-28 10:20 | NUR ---
TRANSFER ORDER TO MED-SURG. TELE MONITOR REMOVED AND GAVE BACK TO MUKUL.
[2019-05-28] MEDS ORDERED: MAGNESIUM HYDROXIDE 2400 MG/30 ML UDC PO PRN (10:25)
[2019-05-28] MEDS ORDERED: MORPHINE TAB ER 15 MG TABER PO PRN (10:25)
[2019-05-28] MEDS ORDERED: METO25TE71 PO (10:50)
[2019-05-28] MEDS ORDERED: MELA5TAB6 PO (10:50)
[2019-05-28] MEDS ORDERED: MSCON15 PO (10:50)
[2019-05-28] MEDS ORDERED: MAGN400S60 PO (10:50)
[2019-05-28] MEDS ORDERED: ALBU0.0912 IH (10:50)
[2019-05-28] MEDS ORDERED: FERR325E14 PO (10:50)
[2019-05-28] MEDS ORDERED: OMEP20EC9 PO (10:50)
[2019-05-28] MEDS ORDERED: METF500T PO (10:50)
[2019-05-28] MEDS ORDERED: LOSA50TA66 PO (10:50)
[2019-05-28] MEDS: NACL 0.9% 1,000 ML IV SCH (11:33)
[2019-05-28 12:00] VITALS: BP 156/63
[2019-05-28 13:22] LABS: HEMATOCRIT 34.7 % (36-52); HEMOGLOBIN 10.8 g/dL (12.0-18.0); MEAN CORPUSCULAR HEMOGLOBIN 29 pg (27-31); MEAN CORPUSCULAR HGB CONC 31 g/dL (33-37); MEAN CORPUSCULAR VOLUME 93.5 fL (80-94); PLATELET COUNT (AUTO) 377 K/uL (140-450); RED BLOOD CELL COUNT(AUTO) 3.71 MIL/uL (4.20-6.10); RED CELL DISTRIBUTION WIDTH 16.7 % (11.6-13.7); WHITE BLOOD COUNT (AUTO) 17.3 K/uL (4.8-10.8)
[2019-05-28 13:41] LABS: ANION GAP 10.2 (8-16); CARBON DIOXIDE 28.6 mmol/L (21-32); CREATININE 1.8 mg/dL (0.6-1.3); POTASSIUM 5.8 mmol/L (3.5-5.1)
--- NOTE | 2019-05-28 13:51 | NUR ---
ASSIST PT IN AMBULATING AROUND THE ROOM THEN TOOK O2 SAT = 88 THEN IT WENT UP TO 94 AFTER 30 SECONDS. REPORTED TO MD AND HE SAID TO CONTINUE WITH O2 AND TRY AGAIN CHECKING TOMORROW.
--- NOTE | 2019-05-28 14:32 | NUR ---
SCHEDULED MEDS GIVEN. PT IS SLEEPING. NO SIGNS OF DISTRESS. CALL LIGHT WITHIN PT'S REACH. WILL CONTINUE TO MONITOR
[2019-05-28 14:46] LABS: LYMPHOCYTES % (MANUAL) 6 % (20-46)
[2019-05-28 14:47] LABS: BASOPHILS % (MANUAL) 0 % (0-2); EOSINOPHILS % (MANUAL) 0 % (0-4); MONOCYTES % (MANUAL) 4 % (5-12)
[2019-05-28 15:56] LABS: CHOL/HDL RATIO 1.8 (1-4.5); MAGNESIUM 2.5 mg/dL (1.8-2.4); PHOSPHORUS 3.1 mg/dL (2.5-4.9)
[2019-05-28 16:00] VITALS: BP 158/56
--- NOTE | 2019-05-28 16:24 | NUR ---
FREQUENT ROUNDING DONE. PT IS SLEEPING. NO SIGNS OF DISTRESS. WILL CONTINUE TO MONITOR
--- NOTE | 2019-05-28 19:05 | NUR ---
RECIEVED PT AAOX4 , NID IV SITE INTACT AND PATENT . AMBULATORY , SKIN INTACT , DENIES ANY PAIN AT THIS TIME . NOD OF AM SAID THE PT. REFUSED O2 -SHE SAID MICHELLE INFORMED . REQUESTING SANDWICH AND COKE - WILL PROVIDE IT . ON SAFETY / FALL PRECAUTION PRPOTOCOL - CALL LIGHT WITHIN REACH . POC DISCUSSED ANDF VERBALIZE UNDERSTANDING . WILL CONT. TO MONITOR .
--- NOTE | 2019-05-28 19:05 | NUR ---
REPORT GIVEN TO BURNER OPERATOR NURSE FOR CONTINUITY OF CARE. PT IS EATING. PT IS STABLE.
[2019-05-28 20:00] VITALS: BP 140/95
[2019-05-28] MEDS: TAMSULOSIN 0.4 MG CAP PO SCH (20:32)
[2019-05-28] MEDS: metFORMIN 500 MG TAB PO SCH (20:32)
[2019-05-28] MEDS: MELATONIN 3 MG TAB PO SCH (20:33)
[2019-05-28] MEDS ORDERED: BACLOFEN 10 MG TAB PO PRN (21:00)
[2019-05-28] MEDS ORDERED: BACLOFEN 10 MG TAB PO SCH (21:00)
--- NOTE | 2019-05-28 22:00 | NUR ---
MADE ROUNDS , NO S/SXS OF ACUTE DISTRESS NOTED AT THIS TIME. CALL LIGHT WITHIN REACH . PT CHANGED NEW GOWN BUT HE DON'T LIKE COLOR YELLOW GOWN AND COLOR YELLOW SOCKS .- REMINDS HIM THE USE OF CALL LIGHT WHEN HE NEEDED TO GO TO BATHROOM OR IF HE NEEDED ANYTHING . - CALL LIGHT WITHIN REACH . URINAL WITHIN REACH AT BEDSIDE.
[2019-05-29] VITALS: BP 143/90
--- NOTE | 2019-05-29 | NUR ---
MADE ROUNDS . NO S/SXS OF ACUTE DISTRESS NOTED AT THIS TIME . CALL LIGHT WITHIN REACH . ON O2 AT 2LPM/NC.
[2019-05-29] MEDS: HYDROcodone/APAP 7.5/325 MG 1 TAB PO PRN ×3 (00:26→18:40)
--- NOTE | 2019-05-29 02:00 | NUR ---
MADE ROUNDS . SLEEPING - CALL LIGHT WITHIN REACH.
[2019-05-29 04:00] VITALS: BP 140/95
--- NOTE | 2019-05-29 04:00 | NUR ---
MADE ROUNDS . NO S/SXS OF ACUTE DISTRESS NOTED AT THIS TIME. CALL LIGHT WITHIN REACH.
[2019-05-29] MEDS: LEVOTHYROXINE 0.05 MG TAB PO SCH (05:59)
[2019-05-29] MEDS: methylPREDNISolone SS 40 MG/ML VIAL IVP SCH ×3 (06:00→20:33)
--- NOTE | 2019-05-29 06:00 | NUR ---
MAKE ROUNDS. GAVE CRANBERRY JUICE HE REQUESTED. NO COMPLAIN MADE AT THIS TIME.
--- NOTE | 2019-05-29 06:43 | NUR ---
REQUESTING CHICKEN SALAD SANDWICH NOW HE SAID HE CAN'T WAIT THE BREAKFAST - INFORMED DIAETARY . HE REQUESTING TO CHANGE NEW GOWN NOW - INFORME HORSE FARM MANAGER . HE WANTS COLOR BLUE GOWN HE DON'T LIKE ANY COLOR EXCEPT BLUE GOWN
[2019-05-29 06:56] LABS: BASOPHILS % (AUTO) 0.1 % (0.0-2.0); HEMATOCRIT 33.4 % (36-52); HEMOGLOBIN 10.5 g/dL (12.0-18.0); LYMPHOCYTES # (AUTO) 0.7 K/uL (2.0-11.5); LYMPHOCYTES % (AUTO) 4.9 % (20.5-51.1); MEAN CORPUSCULAR HEMOGLOBIN 29 pg (27-31); MEAN CORPUSCULAR HGB CONC 31 g/dL (33-37); MEAN CORPUSCULAR VOLUME 93.3 fL (80-94); MONOCYTES # (AUTO) 0.3 K/uL (0.8-1.0); MONOCYTES % (AUTO) 1.7 % (1.7-9.3); NEUTROPHILS # (AUTO) 14.3 K/uL (1.8-7.7); NEUTROPHILS % (AUTO) 93.3 % (42.2-75.2); PLATELET COUNT (AUTO) 384 K/uL (140-450); RED BLOOD CELL COUNT(AUTO) 3.58 MIL/uL (4.20-6.10); RED CELL DISTRIBUTION WIDTH 16.6 % (11.6-13.7); WHITE BLOOD COUNT (AUTO) 15.3 K/uL (4.8-10.8)
[2019-05-29 06:57] LABS: MAGNESIUM 2.3 mg/dL (1.8-2.4); PHOSPHORUS 3.7 mg/dL (2.5-4.9)
[2019-05-29 06:59] LABS: ANION GAP 11.4 (8-16); CARBON DIOXIDE 27.2 mmol/L (21-32); CREATININE 1.8 mg/dL (0.6-1.3); POTASSIUM 5.6 mmol/L (3.5-5.1)
--- NOTE | 2019-05-29 07:15 | NUR ---
RECEIVED REPORT FROM COMMERCIAL BAKER HELPER NURSE. PT AAOX4, DENIES PAIN. IV ON RT WRIST 24 GA RUNNING IVF PER ORDER. RESPIRATIONS EVEN AND UNLABORED ON RA. ABD SOFT, ACTIVE BS. PT ON FALL RISK PRECAUTIONS, SAFETY MEASURES IN PLACE, CALL LIGHT WITHIN REACH. REVIEWED POC WITH PT, PT VERBALIZED UNDERSTANDING.
[2019-05-29] MEDS: NACL 0.9% 1,000 ML IV SCH (07:33)
--- NOTE | 2019-05-29 07:36 | NUR ---
PATIENT HAS BEEN SCREENED AND CATEGORIZED MODERATE NUTRITION RISK. PATIENT WILL BE SEEN WITHIN 3-5 DAYS OF ADMISSION. 05/30/19 06/01/[address]
[2019-05-29] MEDS: ALBUTEROL SULFATE/IPRATROPIU 3 ML SOL IH SCH ×3 (07:37→20:26)
[2019-05-29 08:00] VITALS: BP 133/58
--- NOTE | 2019-05-29 08:30 | NUR ---
PT REPORTED THAT IV WAS LEAKING, DISCONTINUED IV WITH CANNULA INTACT, NO ACTIVE BLEEDING NOTED, PRESSURE APPLIED.
[2019-05-29] MEDS ORDERED: PANTOPRAZOLE 40 MG TABEC PO SCH (09:00)
--- NOTE | 2019-05-29 09:40 | NUR ---
ER NURSE ATTEMPTED TO START IV TWICE. BLOOD RETURN NOTED, BUT LINE NOT FLUSHING. DISCUSSED OPTIONS AVAILABLE, PER PT HE WOULD LIKE TO KNOW MORE INFORMATION REGARDING PICC LINE, WILL NOTIFY MD.
[2019-05-29] MEDS: POTASSIUM CHLORIDE 10 MEQ TABER PO SCH (09:45)
[2019-05-29] MEDS: METOPROLOL SUCCINATE 50 MG TABER PO SCH (09:46)
[2019-05-29] MEDS: SPIRONOLACTONE 25 MG TAB PO SCH (09:46)
[2019-05-29] MEDS: DOCUSATE SODIUM 100 MG GELCAP PO SCH ×2 (09:47→20:33)
[2019-05-29] MEDS: metFORMIN 500 MG TAB PO SCH ×2 (09:51→20:38)
[2019-05-29] MEDS: FERROUS SULFATE 325 MG TABEC PO SCH (09:51)
[2019-05-29] MEDS: LOSARTAN 50 MG TAB PO SCH (09:52)
[2019-05-29] MEDS: AZITHROMYCIN 250 MG TAB PO SCH (09:54)
[2019-05-29] MEDS: PANTOPRAZOLE 40 MG TABEC PO SCH (09:54)
[2019-05-29] MEDS: FUROSEMIDE 40 MG TAB PO SCH (09:54)
[2019-05-29] MEDS: APIXABAN 2.5 MG TAB PO SCH ×2 (09:57→20:40)
[2019-05-29] MEDS: PSYLLIUM 12.2 GM/PKT PO SCH ×2 (09:57→20:39)
--- NOTE | 2019-05-29 10:11 | NUR ---
DR. BLACKMON ORDERED PICC LINE INSERTION, PT IS AGREEABLE AND SIGNED CONSENT. PER PHARMACY, HOLD ROCEPHIN AT THIS TIME, TO BE ADMINISTERED WHEN PICC LINE AVAILABLE.
--- NOTE | 2019-05-29 10:33 | NUR ---
Timber Packer Note: Basic Screen: Yes High Risk DC Screen [place]: JEWELS [place] Relationship: FRIEND Pre-Admission Living Arrangements: Other Other: [facility] Prior ADL Needs Assistance Current Home Health Name/Tel: N/A Current DME/02 Name/Tel: [facility] Current Hospice Name/Tel: N/A Current Dialysis Name/Tel: N/A Healthcare Decision Maker: Patient Advance Directive No Physician Orders for Life Sustaining Treatment Form No Patient/Family Have Educational Needs No Discipline: Case Mgt/Social Svcs Tentative Discharge Plan/Destination: Other Other: [facility] Will require assistance post discharge: No Referred to Outside Sales Account Manager: No Tentative Discharge Plan Summary: Patient is a 63-year-old male admitted for bronchitis and hypoxemia. Patient has PMHX of HTN, CHF, asthma, A-fib, COPD, sleep apnea, chrnoic constipation, BPH, and obesity. Patient was admitted from [facility] [place]. SW contacted Jenny from [facility] [phone]. Per Jenny, patient is self-responsible with healthcare decision making. Jenny stated that patient requires minimal assistance with ADLs and is alert/oriented at baseline. Tentative discharge plan is to return to [facility]. No further needs identified. Signature: AMRIK Handley Date: May 29, 2019 Time: 10:32
[2019-05-29] MEDS ORDERED: SODIUM POLYSTYRENE 15 GM/60 ML UDBTL PO SCH (11:30)
--- NOTE | 2019-05-29 12:00 | NUR ---
NOTIFIED DES/PICC LINE NURSE, PER DR. NEYMAR RASHEED FOR MIDLINE INSTEAD OF PICC LINE INSERTION.
--- NOTE | 2019-05-29 12:58 | NUR ---
DISCHARGE PLANNING: MET WITH THE PATIENT AT THE BEDSIDE TO DISCUSS DC PLAN TO SNF AND IS NOT IN AGREEMENT. HE STATED HE NEED TO SPEAK TO THE DOCTOR WHY THEY DID NOT DISCUSS IT WITH HIM. DR. BLACKMON MADE AWARE. Addendum: 05/30/19 at 1121 by Ayla Alfonso LATE ENTRY FOR 05/29/2019: FOR SNF EVALUATION. JULISSA JACKSON OF [facility] MADE AWARE. SHE STATED TO FAX IT TO THEIR CONTRACTED FACILITIES [facility] AND [place]. CLINICALS AND ORDER SENT TO [facility], [facility] AND [place]. PER H[facility]DEN ADMISSION AT [facility], NO MALE BEDS AVAILABLE AT THIS TIME. Addendum: 05/30/19 at 1130 by Ayla Alfonso CM [phone]: PER PATRICIA OF [facility], [facility] ADMISSION JUST STEPPED OUT BUT WILL RELAY MESSAGE. Addendum: 05/31/19 at 0826 by Ayla Alfonso CM CONTACTED MYNOR HEWITTA AT [phone], ABLE TO SPEAK TO [place]. HE STATED [facility] ADMISSION IS NOT IN YET. WILL FOLLOW UP. Addendum: 05/31/19 at 1357 by Ayla Alfonso CM PER HAYDEN OF [facility], PATIENT WILL GO TO ROOM 21A UNDER DR. DIAZ. JULISSA JACKSON OF [facility] MADE AWARE. PROVIDED ME WITH SNF AND TRANSPORT WITH [facility] [id number]. PER ORALIA OF [facility] [phone], HAIR BOILER OPERATOR WILL BE AT 1800. PRIMARY BETTY SANTIAGO AND DR. BLACKMON MADE AWARE. Addendum: 05/31/19 at 1619 by Ayla Alfonso CM IMM AND CHOICE LETTERS PROVIDED TO THE PATIENT. ALL CONCERNS AND QUESTIONS ANSWERED. PATIENT SIGNED AND PLACED IN THE CHART.
--- NOTE | 2019-05-29 14:30 | NUR ---
SUCCESSFULLY INSERTED MIDLINE TO RT UA, FLUSHING WITH NO RESISTANCE, STARTED IVF. PT TOLERATED PROCEDURE WELL.
[2019-05-29] MEDS ORDERED: MORPHINE SULFATE 2 MG/ML SYR IVP PRN (14:50)
[2019-05-29 16:00] VITALS: BP 118/61
--- NOTE | 2019-05-29 16:50 | NUR ---
VS WITHIN NORMAL LIMITS, PT HAS NO SIGNS OF DISTRESS. WILL CONTINUE TO MONITOR.
--- NOTE | 2019-05-29 19:20 | NUR ---
ENDORSED PT TO FIRE APPARATUS ENGINEER NURSE. PT HAS NO SIGNS OF DISTRESS AT THIS TIME.
--- NOTE | 2019-05-29 19:25 | NUR ---
RECEIVED PT FROM CORAL RN PT IS AAOX4 ON BED REST, ON MIDLINE ON LEFT UPPER ARM FLUID INFUSING WELL NOT DISTRESS NOTED
[2019-05-29 20:00] VITALS: BP 116/58
--- NOTE | 2019-05-29 20:33 | NUR ---
RECEIVED PT ON ROOM AIR WITH AN SP02 OF 97% AND A CLEAR DIMINISHED BREATH SOUNDS. NO RESPIRATORY DISTRESS NOTED AT THIS TIME. HHN TX GIVEN ORDERED WITH NO ADVERSE REACTION. WILL CONTINUE TO MONITOR PT.
[2019-05-29] MEDS: MORPHINE SULFATE 2 MG/ML SYR IVP PRN (20:34)
[2019-05-29] MEDS: MELATONIN 3 MG TAB PO SCH (20:38)
[2019-05-29] MEDS: TAMSULOSIN 0.4 MG CAP PO SCH (20:38)
[2019-05-29] MEDS: NEOMYCIN/POLYMYXIN/BACITRACIN OIN 15 GM TUBE TP SCH (21:00)
--- NOTE | 2019-05-29 22:00 | NUR ---
PT IS ASSISTING ANY TIME HE CALL NOT DISTRESS NOTED
[2019-05-30] VITALS: BP 143/72
[2019-05-30] MEDS: HYDROcodone/APAP 7.5/325 MG 1 TAB PO PRN ×3 (01:25→19:58)
--- NOTE | 2019-05-30 01:42 | NUR ---
AFTER PAIN MEDIC GIVEN PT IS GETTING SLEEP
[2019-05-30] MEDS: MORPHINE SULFATE 2 MG/ML SYR IVP PRN ×3 (03:41→22:05)
[2019-05-30] MEDS: NACL 0.9% 1,000 ML IV SCH ×2 (03:47→23:33)
--- NOTE | 2019-05-30 04:00 | NUR ---
SPONGE BATH GIVEN LINEN CHANGED NOT DISTRESS NOTED GETTING SLEEP
--- NOTE | 2019-05-30 06:27 | NUR ---
PT WILL BE ENDORSED TODAY SHIFT NURSE FOR CONTINUE OF CARE [id number]
[2019-05-30 06:49] LABS: BASOPHILS % (AUTO) 0.2 % (0.0-2.0); EOSINOPHILS % (AUTO) 0.1 % (0.0-4.0); HEMATOCRIT 33.1 % (36-52); HEMOGLOBIN 10.4 g/dL (12.0-18.0); LYMPHOCYTES # (AUTO) 0.9 K/uL (2.0-11.5); LYMPHOCYTES % (AUTO) 7.1 % (20.5-51.1); MEAN CORPUSCULAR HEMOGLOBIN 29 pg (27-31); MEAN CORPUSCULAR HGB CONC 32 g/dL (33-37); MEAN CORPUSCULAR VOLUME 93.1 fL (80-94); MONOCYTES # (AUTO) 0.5 K/uL (0.8-1.0); NEUTROPHILS # (AUTO) 11.6 K/uL (1.8-7.7); NEUTROPHILS % (AUTO) 88.6 % (42.2-75.2); PLATELET COUNT (AUTO) 367 K/uL (140-450); RED BLOOD CELL COUNT(AUTO) 3.56 MIL/uL (4.20-6.10); RED CELL DISTRIBUTION WIDTH 17.3 % (11.6-13.7); WHITE BLOOD COUNT (AUTO) 13.1 K/uL (4.8-10.8)
[2019-05-30 06:58] LABS: CARBON DIOXIDE 29.8 mmol/L (21-32); CREATININE 1.7 mg/dL (0.6-1.3); POTASSIUM 4.8 mmol/L (3.5-5.1)
[2019-05-30 07:01] LABS: MAGNESIUM 2.1 mg/dL (1.8-2.4); PHOSPHORUS 4.3 mg/dL (2.5-4.9)
[2019-05-30] MEDS ORDERED: SODIUM PHOSPHATE 118 ML ENEM RC PRN (07:02)
[2019-05-30] MEDS: ALBUTEROL SULFATE/IPRATROPIU 3 ML SOL IH SCH ×3 (07:28→19:55)
--- NOTE | 2019-05-30 07:30 | NUR ---
RECEIVED BEDSIDE REPORT FROM PM RN PT AWAKE IN BED PT APPEARS STABLE AND IN NO APPARENT DISTRESS. ALL SAFETY MEASURES ARE IN PLACE WILL CONTINUE TO MONITOR. INTRODUCED MYSELF TO PT AND INFORMED HIM TO CALL IF HE NEEDS ANYTHING. CALL LIGHT WITHIN REACH
[2019-05-30 08:49] VITALS: BP 105/49
[2019-05-30] MEDS ORDERED: NEOMYCIN/POLYMYXIN/BACITRACIN OIN 15 GM TUBE TP SCH (09:00)
[2019-05-30] MEDS: NEOMYCIN/POLYMYXIN/BACITRACIN OIN 15 GM TUBE TP SCH (09:00)
[2019-05-30] MEDS: PSYLLIUM 12.2 GM/PKT PO SCH ×2 (09:00→20:52)
--- NOTE | 2019-05-30 09:16 | NUR ---
FREQUENT ROUNDING ON PT PT APPEARS STABLE AND IN NO APPARENT DISTRESS. ALL SAFETY MEASURES ARE IN PLACE WILL CONTINUE TO MONITOR.
[2019-05-30] MEDS: FERROUS SULFATE 325 MG TABEC PO SCH (09:50)
[2019-05-30] MEDS: AZITHROMYCIN 250 MG TAB PO SCH (09:50)
[2019-05-30] MEDS: SPIRONOLACTONE 25 MG TAB PO SCH (09:50)
[2019-05-30] MEDS: metFORMIN 500 MG TAB PO SCH ×2 (09:50→20:49)
[2019-05-30] MEDS: APIXABAN 2.5 MG TAB PO SCH ×2 (09:51→20:51)
[2019-05-30] MEDS: LOSARTAN 50 MG TAB PO SCH (09:53)
[2019-05-30] MEDS: FUROSEMIDE 40 MG TAB PO SCH (09:53)
[2019-05-30] MEDS: DOCUSATE SODIUM 100 MG GELCAP PO SCH ×2 (09:53→20:49)
[2019-05-30] MEDS: PANTOPRAZOLE 40 MG TABEC PO SCH (09:54)
[2019-05-30] MEDS: methylPREDNISolone SS 40 MG/ML VIAL IVP SCH (09:54)
[2019-05-30] MEDS: LIDOCAINE 5% 1 EA PATCH TP SCH (10:47)
[2019-05-30] MEDS: METOPROLOL SUCCINATE 50 MG TABER PO SCH (10:48)
--- NOTE | 2019-05-30 11:34 | NUR ---
FREQUENT ROUNDING ON PT PT APPEARS STABLE AND IN NO APPARENT DISTRESS. ALL SAFETY MEASURES ARE IN PLACE
--- NOTE | 2019-05-30 13:46 | NUR ---
FREQUENT ROUNDING ON PT PT APPEARS STABLE AND IN NO APPARENT DISTRESS. ALL SAFETY MEASURES ARE IN PLACE WILL CONTINUE TO MONITOR.
--- NOTE | 2019-05-30 15:34 | NUR ---
FREQUENT ROUNDING ON PT PT APPEARS STABLE AND IN NO APPARENT DISTRESS. ALL SAFETY MEASURES ARE IN PLACE WILL CONTINUE TO MONITOR.
[2019-05-30 16:35] VITALS: BP 146/74
--- NOTE | 2019-05-30 19:30 | NUR ---
RECEIVED BEDSIDE REPORT FROM DAY SHIFT NURSE. PATIENT IS AWAKE, ALERT, AND COOPERATIVE. RESPIRATION EVEN UNLABORED ON ROOM AIR. NO DISTRESS NOTED. SKIN IS WARM AND DRY. RIGHT UPPER ARM PICC LINE NOTED. PLAN OF CARE WAS DISCUSSED. ALL SAFETY MEASURES IN PLACE. BED IS AT LOW POSITION. CALL LIGHT WITHIN REACH AND VERBALIZES ITS USE. WILL CONTINUE TO MONITOR. Addendum: 05/31/19 at 0439 by Julius Merritt RN RECEIVED BEDSIDE REPORT FROM DAY SHIFT NURSE. PATIENT IS AWAKE, ALERT, AND COOPERATIVE. RESPIRATION EVEN UNLABORED ON ROOM AIR. NO DISTRESS NOTED. SKIN IS WARM AND DRY. LEFT UPPER ARM PICC LINE NOTED. PLAN OF CARE WAS DISCUSSED. ALL SAFETY MEASURES IN PLACE. BED IS AT LOW POSITION. CALL LIGHT WITHIN REACH AND VERBALIZES ITS USE. WILL CONTINUE TO MONITOR.
--- NOTE | 2019-05-30 20:00 | NUR ---
INITIAL ASSESSMENT DONE. VITALS WERE TAKEN. PATIENT COMPLAINED OF 6/10 PAIN. PRN PAIN MED ADMINISTER PER ORDER. WILL CONTINUE TO MONITOR.
--- NOTE | 2019-05-30 20:45 | NUR ---
ALL SCHEDULED MEDS WERE GIVEN PER ORDER. NO ASE NOTED. WILL CONTINUE TO MONITOR.
[2019-05-30] MEDS: TAMSULOSIN 0.4 MG CAP PO SCH (20:49)
[2019-05-30] MEDS: MELATONIN 3 MG TAB PO SCH (20:51)
--- NOTE | 2019-05-30 22:05 | NUR ---
PATIENT COMPLAINED OF 8/10 PAIN. PRN PAIN MED ADMINISTERED PER ORDER. WILL CONTINUE TO MONITOR.
--- NOTE | 2019-05-30 23:56 | NUR ---
VITALS WERE TAKEN. PATIENT IN STABLE CONDITION. NO DISTRESS NOTED. WILL CONTINUE TO MONITOR.
[2019-05-31] VITALS: BP 133/70
[2019-05-31] MEDS: HYDROcodone/APAP 7.5/325 MG 1 TAB PO PRN ×3 (02:03→14:29)
--- NOTE | 2019-05-31 02:15 | NUR ---
PATIENT COMPLAINED OF CONSTIPATION AND PAIN. PRN MOM GIVEN AND PAIN MED PER ORDER. WILL CONTINUE TO MONITOR.
--- NOTE | 2019-05-31 02:45 | NUR ---
PATIENT COMPLAINS OF FEELING SOB. PRN BREATHING TX ADMINISTERED. TOLERATED TX WELL WITHOUT ADVERSE SIDE EFFECTS. NO ACUTE RESPIRATORY DISTRESS NOTED AT THIS TIME. WILL CONTINUE TO MONITOR.
[2019-05-31] MEDS: MORPHINE SULFATE 2 MG/ML SYR IVP PRN ×3 (04:29→17:59)
--- NOTE | 2019-05-31 04:30 | NUR ---
PATIENT COMPLAINED OF PAIN 8/. PRN PAIN MED ADMINISTERED PER ORDER. WILL CONTINUE TO MONITOR
[2019-05-31] MEDS: NACL 0.9% 1,000 ML IV SCH (04:33)
[2019-05-31 07:01] LABS: ANION GAP 9.7 (8-16); BASOPHILS % (AUTO) 0.1 % (0.0-2.0); CARBON DIOXIDE 29.6 mmol/L (21-32); CREATININE 1.7 mg/dL (0.6-1.3); HEMATOCRIT 34.6 % (36-52); LYMPHOCYTES # (AUTO) 2.1 K/uL (2.0-11.5); LYMPHOCYTES % (AUTO) 16.2 % (20.5-51.1); MEAN CORPUSCULAR HEMOGLOBIN 30 pg (27-31); MEAN CORPUSCULAR HGB CONC 32 g/dL (33-37); MONOCYTES # (AUTO) 1.3 K/uL (0.8-1.0); MONOCYTES % (AUTO) 10.4 % (1.7-9.3); NEUTROPHILS # (AUTO) 9.5 K/uL (1.8-7.7); NEUTROPHILS % (AUTO) 73.3 % (42.2-75.2); PLATELET COUNT (AUTO) 389 K/uL (140-450); POTASSIUM 4.3 mmol/L (3.5-5.1); RED BLOOD CELL COUNT(AUTO) 3.72 MIL/uL (4.20-6.10); RED CELL DISTRIBUTION WIDTH 17.4 % (11.6-13.7); WHITE BLOOD COUNT (AUTO) 12.9 K/uL (4.8-10.8)
--- NOTE | 2019-05-31 07:12 | NUR ---
ENDORSED PATIENT TO DAY SHIFT NURSE. PATIENT IN STABLE CONDITION.
[2019-05-31] MEDS: ALBUTEROL SULFATE/IPRATROPIU 3 ML SOL IH SCH ×2 (07:37→13:37)
--- NOTE | 2019-05-31 07:45 | NUR ---
RECEIVED BEDSIDE REPORT FROM PM RN PT APPEARS STALE AND IN NO APPARENT DISTRESS. RIGHT UPPER ARM PICC IN PLACE INFUSING IVF. ALL SAFETY MEASURES ARE IN PLACE CALL LIGHT WITHIN REACH. WILL CONTINUE TO MONITOR
[2019-05-31] MEDS: DOCUSATE SODIUM 100 MG GELCAP PO SCH (08:11)
[2019-05-31] MEDS: FERROUS SULFATE 325 MG TABEC PO SCH (08:11)
[2019-05-31] MEDS: metFORMIN 500 MG TAB PO SCH (08:11)
[2019-05-31] MEDS: PANTOPRAZOLE 40 MG TABEC PO SCH (08:11)
[2019-05-31] MEDS: LOSARTAN 50 MG TAB PO SCH (08:12)
[2019-05-31] MEDS: APIXABAN 2.5 MG TAB PO SCH (08:12)
[2019-05-31] MEDS: AZITHROMYCIN 250 MG TAB PO SCH (08:13)
[2019-05-31] MEDS: SPIRONOLACTONE 25 MG TAB PO SCH (08:14)
[2019-05-31] MEDS: METOPROLOL SUCCINATE 50 MG TABER PO SCH (08:14)
[2019-05-31] MEDS: FUROSEMIDE 40 MG TAB PO SCH (08:14)
[2019-05-31 08:15] VITALS: BP 137/71
[2019-05-31] MEDS: methylPREDNISolone SS 40 MG/ML VIAL IVP SCH (08:15)
[2019-05-31] MEDS: LIDOCAINE 5% 1 EA PATCH TP SCH (08:16)
[2019-05-31] MEDS: NEOMYCIN/POLYMYXIN/BACITRACIN OIN 15 GM TUBE TP SCH (08:31)
[2019-05-31] MEDS: PSYLLIUM 12.2 GM/PKT PO SCH (08:31)
[2019-05-31] MEDS ORDERED: MENTHOL/METHYL 10%-15% 114 GM TUBE TP PRN (08:45)
--- NOTE | 2019-05-31 09:34 | NUR ---
FREQUENT ROUNDING ON PT PT APPEARS STABLE NO APPARENT DISTRESS. ALL SAFETY MEASURES ARE IN PLACE CALL LIGHT WITHIN REACH WILL CONTINUE TO MONITOR.
--- NOTE | 2019-05-31 10:00 | NUR ---
ALL MORNING MEDICATIONS ADMINISTERED NORCO PRN MEDICATION ADMINISTERED WELL FOR 6/10 PAIN. APPLIED LIDOCAINE PATCH TO PATIENT LOWER BACK FOR CHRONIC BACK PAIN
[2019-05-31] MEDS ORDERED: LACT-81 PO (10:28)
[2019-05-31] MEDS ORDERED: ROC1PM IV (10:28)
[2019-05-31] MEDS ORDERED: METPCK PO (10:28)
--- NOTE | 2019-05-31 11:34 | NUR ---
FREQUENT ROUNDING ON PT PT APPEARS STABLE AND IN NO APPARENT DISTRESS. ALL SAFETY MEASURES ARE IN PLACE WILL CONTINUE TO MONITOR.
--- NOTE | 2019-05-31 12:00 | NUR ---
MUSCLE RELIEF GEL APPLIED TO PT RT ARM FOR NERVE PAIN.
--- NOTE | 2019-05-31 13:46 | NUR ---
FREQUENT ROUNDING ON PT PT APPEARS STABLE AND IN NO APPARENT DISTRESS ALL SAFETY MEASURES ARE IN PLACE WILL CONTINUE TO MONITOR.
--- NOTE | 2019-05-31 15:34 | NUR ---
FREQUENT ROUNDING ON PT PT APPEARS STABLE AND IN NO APPARENT DISTRESS. ALL SAFETY MEASURES ARE IN PLACE WILL CONTINUE TO MONITOR
--- NOTE | 2019-05-31 16:20 | NUR ---
CALLED [facility] AND GAVE REPORT TO IZAIAH HERNÁNDEZ [phone]
--- NOTE | 2019-05-31 16:20 | NUR ---
TOLERATED INCENTIVE SPIROMETRY WELL WITHOUT ADVERSE REACTIONS NOTED ENCOURAGED PATIENT TO USE INCENTIVE SPIROMETRY EVERY 1-2 HOURS WHILE AWAKE
[2019-05-31 16:35] VITALS: BP 136/74
--- NOTE | 2019-05-31 17:46 | NUR ---
FREQUENT ROUNDING ON PT PT APPEARS STABLE AND IN NO APPARENT DISTRESS. ALL SAFETY MEASURES ARE IN PLACE WILL CONTINUE TO MONITOR
--- NOTE | 2019-05-31 19:05 | NUR ---
PT PICKED UP BY [facility] PT LEFT WITH LEFT UPPER ARM PICC LINE IN PLACE. ALL SAFETY MEASURES ARE IN PLACE. REVIEWED DISCHARGE INSTRUCTIONS WITH PT ANSWERED ALL QUESTIONS. MEDICATION LIST ATTACHED TO OUTSIDE FOLDER FOR [facility].
== END 2019-05-31 19:00 | DRG 682 ==
LOC: MED 09:22 → MTU 11:33
PROVIDERS: ADMIT General Practice; ATTEND General Practice
PROC: 05HY33Z Insertion of Infusion Device into Upper Vein, Percutaneous Approach (ICD-10-PCS; principal; 2019-05-29)
PROC: B54NZZA Ultrasonography of Left Upper Extremity Veins, Guidance (ICD-10-PCS; 2019-05-29)
DX: N17.0 Acute kidney failure with tubular necrosis (principal); J96.21 Acute and chronic respiratory failure with hypoxia; J96.22 Acute and chronic respiratory failure with hypercapnia; J44.1 Chronic obstructive pulmonary disease with (acute) exacerbation; E66.2 Morbid (severe) obesity with alveolar hypoventilation; I50.22 Chronic systolic (congestive) heart failure; Z68.41 Body mass index [BMI] 40.0-44.9, adult; E87.5 Hyperkalemia; G47.00 Insomnia, unspecified; G89.29 Other chronic pain; I11.0 Hypertensive heart disease with heart failure; N40.0 Benign prostatic hyperplasia without lower urinary tract symptoms; K21.9 Gastro-esophageal reflux disease without esophagitis; K59.09 Other constipation; Z96.643 Presence of artificial hip joint, bilateral; I48.0 Paroxysmal atrial fibrillation; E02 Subclinical iodine-deficiency hypothyroidism; M54.5 Low back pain; Z79.01 Long term (current) use of anticoagulants; Z87.891 Personal history of nicotine dependence; Z88.5 Allergy status to narcotic agent; Z88.0 Allergy status to penicillin; Z91.041 Radiographic dye allergy status; Z79.899 Other long term (current) drug therapy; Z95.810 Presence of automatic (implantable) cardiac defibrillator; Z90.49 Acquired absence of other specified parts of digestive tract
CPT/HCPCS: 36415; 36600; 71045; 80048; 80053; 80305; 81003; 82150; 82803; 83036; 83690; 83735; 83880; 84100; 84439; 84443; 84484; 85025; 85610; 85730; 87040; 87081; 87086; 87804; 93005; 94640; 96365; 96375; 97110; 97112; 97116; 97161-GP; 97530; 99291; C1751; J0696; J1170; J1644; J1885; J2270; J2920; J2930; J3475; J7030; J7060; J7620; Q0092

== ENCOUNTER 2019-06-11 21:56 | Emergency (ER) | payer OTHER, MEDICAID ==
[~2019-06-11] VITALS: Ht 180.3 cm; Wt 136.1 kg
[~2019-06-11 21:56] MED LIST changes: -ACET-8386 PO; +ALBU0.0912 IH; +APIX5TAB PO; +BISA-227 PO; -BISA5ECT45 PO; +FERR325E14 PO; +LACT-81 PO; +MAGN400S60 PO; +MELA5TAB6 PO; +METO25TE71 PO; +METPCK PO; +MSCON15 PO; +ROC1PM IV; -SULF-58 PO; -TRAM50TA1 PO
--- NOTE | 2019-06-11 21:56 | NUR ---
PT [facility] BLS TO ER BED 08
[2019-06-11 22:00] VITALS: BP 123/85
--- NOTE | 2019-06-11 22:20 | NUR ---
PT BIBA C/O CP AND ANXIETY. CURRENTLY DENIES CP. EKG DONE ON ARRIVAL. PMH PANIC ATTACKS, GERD, DM, SHANA, ASTHMA, BPH, HTN, CHF. BG 118. PLACED ON 2LO2 NC ON ARRIVAL; RR LABORED BUT EVEN; 99% ON 2L O2. STATES THAT HE HAS USED MEDICATIONS TO HELP WITH PANIC ATTACKS IN THE PAST BUT CURRENTLY DOES NOT TAKE ANYTHING. PT STOOD AND PIVOTED FROM [facility] TO [facility] WITHOUT DIFFICULTY OR ASSISTANCE. SITTING [place] IN [place] ASKING STAFF FOR A SANDWICH; DOES NOT ENDORSE A CHIEF COMPLAINT AND DENIES HAVING ANY PMH. C/O 12/03 CHRONIC BACK PAIN. +2 PITTING EDEMA IN BLE. DENIES ABD PAIN, N/V, URINATION, DIARRHEA, CONSTIPATION, SOB, CP, OR ANXIETY AT THE MOMENT. VSS. PLACED ON MONITOR. RESTING COMFORTABLY.
--- NOTE | 2019-06-11 22:40 | NUR ---
DR. SCHULTZ AT BEDSIDE ASSESSING PT.
--- NOTE | 2019-06-11 23:11 | NUR ---
PT GOING TO BE DC'ED BY DR SCHULTZ. PT UNABLE TO ARRANGE TRANSPORTATION HOME. INTERNAL COMMUNICATIONS MANAGER DIONISIO APPROVED TAXI VOUCHER FOR PT. RAJEEV ANDESRON CALLED; STAFF WILL MEET PT AT DOOR TO HELP INTO FACILITY.
--- NOTE | 2019-06-11 23:24 | NUR ---
Note brendonmariaa in EDM - 06/11/19 at 2352 by YOVANI Patient discharged with v/s stable. Written and verbal after care instructions given and explained. Patient verbalized understanding. Wheel Chair Assisted with steady gait. All questions addressed prior to discharge. Advised to follow up with PMD. PT REFUSED TO SIGN DC PAPERWORK; DEMANDING A SANDWICH, STAFF ALREADY GAVE A SANDWICH, DEMANDING SANDWICH TO-GO. PT GIVEN TAXI VOUCHER. PT BEING ASSISTED INTO WHEELCHAIR AND INTO THE TAXI. RECEIVING STAFF TO MEET PT OUTSIDE OF FACILITY AT TAXI TO HELP ASSIST PT.
== END 2019-06-11 23:11 | disposition home or self-care (01) ==
LOC: MED 21:56
DX: R00.2 Palpitations (principal); F41.0 Panic disorder [episodic paroxysmal anxiety]; J44.9 Chronic obstructive pulmonary disease, unspecified; E11.9 Type 2 diabetes mellitus without complications; K21.9 Gastro-esophageal reflux disease without esophagitis; I10 Essential (primary) hypertension; Z95.0 Presence of cardiac pacemaker; Z79.84 Long term (current) use of oral hypoglycemic drugs; Z79.899 Other long term (current) drug therapy; Z88.0 Allergy status to penicillin; Z88.5 Allergy status to narcotic agent; Z88.8 Allergy status to other drugs, medicaments and biological substances
CPT/HCPCS: 93005; 99283

== ENCOUNTER 2019-06-17 12:49 | Emergency (ER) | payer OTHER, MEDICAID ==
[~2019-06-17] VITALS: Ht 180.3 cm; Wt 136.1 kg
--- NOTE | 2019-06-17 12:49 | NUR ---
PATIENT BIBA TO BED 2 AT THIS TIME.
--- NOTE | 2019-06-17 13:04 | NUR ---
COVERING PRIMARY RN FOR LUNCH RELIEF -- RECEIVED A 63/M FROM EMS FOR INCREASING SOB OVER THE LAST DAY. LUNG SOUNDS CLEAR BILATERALLY. RESPIRATIONS EVEN AND UNLABORED. PT IS ALERT TO NAME, BIRTHDAY, PLACE AND EVENT.
[2019-06-17] MEDS ORDERED: ALBUTEROL 0.083% 2.5 MG/3 ML NEBU INH ONE ×2 (13:20→14:40)
[2019-06-17] MEDS ORDERED: methylPREDNISolone SS 125 MG/2 ML VIAL IVP ONE (13:20)
[2019-06-17] MEDS ORDERED: MAGNESIUM SULFATE 50% 1,000 MG in NACL 0.9% 50 ML IV ONE (13:20)
[2019-06-17] MEDS ORDERED: IPRATROPIUM 0.02% 0.5 MG/2.5 ML NEBU INH ONE (13:20)
--- NOTE | 2019-06-17 13:57 | NUR ---
RT AT BEDSIDE
[2019-06-17 14:07] LABS: BASOPHILS # (AUTO) 0.1 K/uL (0.00-0.22); BASOPHILS % (AUTO) 1.7 % (0.0-2.0); EOSINOPHILS # (AUTO) 0.2 K/uL (0-0.4); EOSINOPHILS % (AUTO) 2.3 % (0.0-4.0); HEMATOCRIT 28.8 % (36-52); HEMOGLOBIN 9.5 g/dL (12.0-18.0); LYMPHOCYTES # (AUTO) 1.3 K/uL (2.0-11.5); LYMPHOCYTES % (AUTO) 17.8 % (20.5-51.1); MEAN CORPUSCULAR HEMOGLOBIN 30 pg (27-31); MEAN CORPUSCULAR HGB CONC 33 g/dL (33-37); MEAN CORPUSCULAR VOLUME 90.3 fL (80-94); MONOCYTES # (AUTO) 0.6 K/uL (0.8-1.0); MONOCYTES % (AUTO) 7.8 % (1.7-9.3); NEUTROPHILS % (AUTO) 70.4 % (42.2-75.2); PLATELET COUNT (AUTO) 292 K/uL (140-450); RED BLOOD CELL COUNT(AUTO) 3.19 MIL/uL (4.20-6.10); RED CELL DISTRIBUTION WIDTH 16.5 % (11.6-13.7); WHITE BLOOD COUNT (AUTO) 7.1 K/uL (4.8-10.8)
[2019-06-17 14:12] LABS: ANION GAP 12.9 (8-16); CARBON DIOXIDE 27.7 mmol/L (21-32); CREATININE 2.2 mg/dL (0.6-1.3); POTASSIUM 4.6 mmol/L (3.5-5.1)
[2019-06-17 14:18] LABS: TOTAL BILIRUBIN 0.3 mg/dL (0.0-1.0)
[2019-06-17] MEDS ORDERED: ACETAMINOPHEN 325 MG TAB PO ONE (14:35)
--- NOTE | 2019-06-17 14:39 | NUR ---
PT ON RA PER ERMD SPO2 96 ERMD AWARE
[2019-06-17 16:03] VITALS: BP 136/67
--- NOTE | 2019-06-17 16:03 | NUR ---
Patient discharged with v/s stable. Written and verbal after care instructions given and explained. Patient alert, oriented and verbalized understanding of instructions. Ambulance Transport with to skilled nursing. All questions addressed prior to discharge. ID band removed. Patient advised to follow up with PMD. Rx of ALBUTEROL,AZITHROMYCIN,PREDNISONE given. Patient educated on indication of medication including possible reaction and side effects. Opportunity to ask questions provided and answered. Addendum: 06/17/19 at 1605 by BAO CHARGE NURSE ASHLEY BURT
== END 2019-06-17 16:03 | disposition home or self-care (01) ==
LOC: MED 12:49
DX: J44.9 Chronic obstructive pulmonary disease, unspecified (principal); K21.9 Gastro-esophageal reflux disease without esophagitis; E11.22 Type 2 diabetes mellitus with diabetic chronic kidney disease; N18.9 Chronic kidney disease, unspecified; I10 Essential (primary) hypertension; Z95.0 Presence of cardiac pacemaker; Z79.899 Other long term (current) drug therapy; Z88.0 Allergy status to penicillin; Z88.5 Allergy status to narcotic agent; Z88.8 Allergy status to other drugs, medicaments and biological substances
CPT/HCPCS: 36415; 71045; 80053; 83880; 84484; 85025; 94640; 96374; 99284; J2930; J7613; J7644; Q0092

== ENCOUNTER 2019-07-01 08:50 | Emergency (ER) | payer OTHER, MEDICAID ==
[~2019-07-01] VITALS: Ht 180.3 cm; Wt 136.1 kg
--- NOTE | 2019-07-01 08:55 | NUR ---
PT BIB ALS TO ER BED 3
[2019-07-01 09:02] VITALS: BP_DIAS 123
--- NOTE | 2019-07-01 09:07 | NUR ---
DR JAMISON EVALUATING PT AT BEDSIDE
[2019-07-01] MEDS ORDERED: FUROSEMIDE 40 MG/4 ML VIAL IVP ONE (09:10)
[2019-07-01] MEDS ORDERED: HYDROcodone/APAP 5/325 MG 1 TAB TAB PO ONE (09:10)
[2019-07-01] MEDS ORDERED: methylPREDNISolone SS 125 MG/2 ML VIAL IVP ONE (09:10)
[2019-07-01] MEDS ORDERED: ALBUTEROL 0.083% 2.5 MG/3 ML NEBU INH ONE (09:10)
[2019-07-01] MEDS ORDERED: IPRATROPIUM 0.02% 0.5 MG/2.5 ML NEBU INH ONE (09:10)
--- NOTE | 2019-07-01 09:10 | NUR ---
dr hannah at bedside evaluating pt.
--- NOTE | 2019-07-01 09:17 | NUR ---
biba bls c/o sob for a week ,pt awake ,alert ,afibrile ambulatory with walker , sce ,cbs . pmhx chf , htn.Pt c/o low back and leg pain 02/02 . meds .gabapentin
--- NOTE | 2019-07-01 09:19 | NUR ---
ADMINISTERED HHN THERAPY AND RESPIRATORY DRUGS ORDERED ENCOURAGED PATIENT FOR INTERMITTENT DEEP BREATHING DURING THERAPY
--- NOTE | 2019-07-01 09:34 | NUR ---
DIRECTOR OF PUBLIC WORKS AT BEDSIDE FOR BLOOD DRAW
[2019-07-01 10:04] LABS: BASOPHILS # (AUTO) 0.1 K/uL (0.00-0.22); BASOPHILS % (AUTO) 0.8 % (0.0-2.0); EOSINOPHILS # (AUTO) 0.2 K/uL (0-0.4); HEMOGLOBIN 8.6 g/dL (12.0-18.0); LYMPHOCYTES # (AUTO) 1.7 K/uL (2.0-11.5); LYMPHOCYTES % (AUTO) 17.3 % (20.5-51.1); MEAN CORPUSCULAR HEMOGLOBIN 31 pg (27-31); MEAN CORPUSCULAR HGB CONC 33 g/dL (33-37); MEAN CORPUSCULAR VOLUME 94.1 fL (80-94); MONOCYTES # (AUTO) 0.9 K/uL (0.8-1.0); MONOCYTES % (AUTO) 9.3 % (1.7-9.3); NEUTROPHILS # (AUTO) 6.9 K/uL (1.8-7.7); NEUTROPHILS % (AUTO) 70.6 % (42.2-75.2); PLATELET COUNT (AUTO) 359 K/uL (140-450); RED BLOOD CELL COUNT(AUTO) 2.77 MIL/uL (4.20-6.10); RED CELL DISTRIBUTION WIDTH 17.2 % (11.6-13.7); WHITE BLOOD COUNT (AUTO) 9.7 K/uL (4.8-10.8)
[2019-07-01 10:20] LABS: ALBUMIN 2.9 g/dL (3.4-5.0); ANION GAP 9.4 (8-16); CARBON DIOXIDE 29.4 mmol/L (21-32); CREATININE 1.7 mg/dL (0.6-1.3); POTASSIUM 4.8 mmol/L (3.5-5.1); TOTAL BILIRUBIN 0.3 mg/dL (0.0-1.0)
--- NOTE | 2019-07-01 10:31 | NUR ---
DR JAMISON AT BEDSIDE REEVALUATING PT.
[2019-07-01 11:00] VITALS: BP 120/60
--- NOTE | 2019-07-01 11:07 | NUR ---
Patient discharged with v/s stable. Written and verbal after care instructions given and explained regarding shortness of breath. Patient alert, oriented and verbalized understanding of instructions. Ambulatory with steady gait. All questions addressed prior to discharge. ID band removed. Patient advised to follow up with PMD. Rx of prednisone, lasix azithromycin given. Patient educated on indication of medication including possible reaction and side effects. Opportunity to ask questions provided and answered.
== END 2019-07-01 11:07 | disposition home or self-care (01) ==
LOC: MED 08:50
DX: J45.909 Unspecified asthma, uncomplicated (principal); E11.22 Type 2 diabetes mellitus with diabetic chronic kidney disease; I13.10 Hypertensive heart and chronic kidney disease without heart failure, with stage 1 through stage 4 chronic kidney disease, or unspecified chronic kidney disease; N18.9 Chronic kidney disease, unspecified; K21.9 Gastro-esophageal reflux disease without esophagitis; Z95.0 Presence of cardiac pacemaker; Z88.0 Allergy status to penicillin; Z88.5 Allergy status to narcotic agent; Z88.8 Allergy status to other drugs, medicaments and biological substances; Z79.899 Other long term (current) drug therapy; Z79.84 Long term (current) use of oral hypoglycemic drugs
CPT/HCPCS: 36415; 71045; 80053; 83880; 84484; 85025; 93005; 94640; 96374; 96375; 99285; J1940; J2930; J7613; J7644; Q0092

== ENCOUNTER 2019-07-05 10:03 | Inpatient (IN) | payer OTHER, MEDICAID ==
[~2019-07-05] VITALS: Ht 180.3 cm; Wt 136.1 kg
[2019-07-05 10:06] VITALS: BP 110/72
--- NOTE | 2019-07-05 10:06 | NUR ---
TO ED 12 VIA EMS.
--- NOTE | 2019-07-05 10:45 | NUR ---
C/O INCREASING SOB X1 DAY. BILAT UPPER LOBES CTA, BILAT BASES DIMINISHED. RESPIRATIONS LABORED. O2 SAT 91% RA, PT ARRIVED ON 2LPM NC. AFIB RVR AT 135BPM. PT DENIES CHEST PAIN AT THIS TIME. EDEMA NOTED TO BLE, +1 PITTING. BED IN LOW POSITION, SIDE RAIL UP X1.
[2019-07-05] MEDS ORDERED: NALO4SPR NS (10:46)
[2019-07-05] MEDS ORDERED: AZIT250T3 PO (10:46)
[2019-07-05] MEDS ORDERED: NA P133E RC (10:46)
[2019-07-05] MEDS ORDERED: ACET-2619 PO (10:46)
[2019-07-05] MEDS ORDERED: DEXT1DRO4 OP (10:46)
[2019-07-05] MEDS ORDERED: HYD1C TP (10:46)
[2019-07-05] MEDS ORDERED: methylPREDNISolone SS 125 MG/2 ML VIAL IVP ONE (10:50)
[2019-07-05] MEDS ORDERED: ALBUTEROL 0.083% 2.5 MG/3 ML NEBU INH ONE (10:50)
[2019-07-05] MEDS ORDERED: METOPROLOL 5 MG/5 ML VIAL IVP ONE ×2 (10:50→12:00)
[2019-07-05] MEDS ORDERED: ONDANSETRON 4 MG/2 ML VIAL IVP ONE (10:50)
[2019-07-05] MEDS ORDERED: MORPHINE SULFATE 2 MG/ML SYR IVP ONE (10:50)
[2019-07-05] MEDS ORDERED: IPRATROPIUM 0.02% 0.5 MG/2.5 ML NEBU INH ONE (10:50)
[2019-07-05 11:10] LABS: BASOPHILS % (AUTO) 0.4 % (0.0-2.0); EOSINOPHILS % (AUTO) 0.1 % (0.0-4.0); HEMATOCRIT 27.1 % (36-52); HEMOGLOBIN 8.7 g/dL (12.0-18.0); LYMPHOCYTES # (AUTO) 0.8 K/uL (2.0-11.5); LYMPHOCYTES % (AUTO) 8.4 % (20.5-51.1); MEAN CORPUSCULAR HEMOGLOBIN 31 pg (27-31); MEAN CORPUSCULAR HGB CONC 32 g/dL (33-37); MONOCYTES # (AUTO) 0.6 K/uL (0.8-1.0); MONOCYTES % (AUTO) 5.7 % (1.7-9.3); NEUTROPHILS # (AUTO) 8.4 K/uL (1.8-7.7); NEUTROPHILS % (AUTO) 85.4 % (42.2-75.2); PLATELET COUNT (AUTO) 402 K/uL (140-450); RED BLOOD CELL COUNT(AUTO) 2.86 MIL/uL (4.20-6.10); RED CELL DISTRIBUTION WIDTH 17.3 % (11.6-13.7); WHITE BLOOD COUNT (AUTO) 9.8 K/uL (4.8-10.8)
[2019-07-05 11:11] LABS: APPEARANCE,URINE CLEAR (CLEAR); BILIRUBIN,URINE NEGATIVE (NEGATIVE); BLOOD, URINE NEGATIVE (NEGATIVE); COLOR,URINE YELLOW (YELLOW); LEUKOCYTE ESTERASE ,URINE NEGATIVE (NEGATIVE); NITRITE, URINE NEGATIVE (NEGATIVE); UGLUCOSE NEGATIVE (NEGATIVE)
[2019-07-05 11:25] LABS: ANION GAP 9.8 (8-16); CARBON DIOXIDE 30.9 mmol/L (21-32); CREATININE 1.9 mg/dL (0.6-1.3); POTASSIUM 4.7 mmol/L (3.5-5.1); TOTAL BILIRUBIN 0.3 mg/dL (0.0-1.0)
[2019-07-05] MEDS ORDERED: NACL 0.9% 1,000 ML IV SCH (12:21)
[2019-07-05] MEDS ORDERED: LORazepam 2 MG/ML VIAL IM/IVP PRN (12:25)
[2019-07-05] MEDS ORDERED: DOCUSATE SODIUM 100 MG GELCAP PO PRN (12:25)
[2019-07-05] MEDS ORDERED: ONDANSETRON 4 MG/2 ML VIAL IM/IVP PRN (12:25)
--- NOTE | 2019-07-05 13:01 | NUR ---
PT HR CONTINUES TO BE ELEVATED AT 138BPM, DR. CLEVELAND NOTIFIED
[2019-07-05] MEDS ORDERED: DILTIAZEM 25 MG/5 ML VIAL IVP SCH ×2 (13:15→14:00)
--- NOTE | 2019-07-05 14:00 | NUR ---
PT CONTINUES TO HAVE ELEVATED HR 135, DR CLEVELAND MADE AWARE
[2019-07-05 14:37] LABS: MAGNESIUM 1.9 mg/dL (1.8-2.4); PHOSPHORUS 3.4 mg/dL (2.5-4.9); THYROID STIMULATING HORMONE 3.7 uIU/mL (0.34-3.74)
--- NOTE | 2019-07-05 14:59 | NUR ---
Patient will be admitted to care of DR ABRAHAM. Admited to TELEMETRY. Will go to roomU-01 (TELE OVERFLOW). Belongings list completed. Report to BETTY VU.
--- NOTE | 2019-07-05 15:00 | NUR ---
PT ADMITTED TO ICU FROM ER. PT IS TELEMETRY STATUS. REPORT RECEIVED AT BEDSIDE FROM BETTY HIGHTOWER. PT IS AAOX4. ABLE TO MAKE NEEDS KNOWN. AFEBRILE. DENIES PAIN. A. FIB ON MONITOR. CAP REFILL < 2 SEC. ON O2 AT 2 LPM/NC. LUNGS SOUND CLEAR BILATERALLY, LOWER LOBES DIMINISHED. PERIPHERAL IV G 20 TO RIGHT FOREARM PATENT AND INTACT. ABDOMEN SOFT, ROUND, NONTENDER, BOWEL SOUNDS PRESENT X 4 QUADRANTS. SKIN IS DRY AND WARM TO TOUCH. SUPERFICIAL ABRASION NOTED TO BLE. HOB AT 30 DEGREES, BED IN LOWEST POSITION LOCKED. CALL LIGHT WITHIN REACH. WILL CONTINUE TO MONITOR.
[2019-07-05] MEDS ORDERED: MAGNESIUM HYDROXIDE 2400 MG/30 ML UDC PO PRN (15:15)
[2019-07-05] MEDS ORDERED: SODIUM PHOSPHATE 118 ML ENEM RC PRN (15:15)
[2019-07-05] MEDS ORDERED: ALBUTEROL SULFATE/IPRATROPIU 3 ML SOL IH PRN (15:25)
[2019-07-05] MEDS: MORPHINE SULFATE 2 MG/ML SYR IVP PRN ×2 (15:56→21:19)
[2019-07-05 16:00] VITALS: BP 99/67
[2019-07-05 16:00] LABS: BARBITURATE, URINE NEGATIVE ng/ml (NEG <=200); BENZODIAZEPINE, URINE NEGATIVE ng/mL (NEG <=200); CANNABINOID, URINE NEGATIVE ng/mL (NEG <=50); COCAINE, URINE NEGATIVE ng/mL (NEG <=300); OPIATE, URINE POSITIVE ng/mL (NEG <=2000); PHENCYCLIDINE SCREEN,URINE NEGATIVE ng/mL (NEG <=25)
--- NOTE | 2019-07-05 16:00 | NUR ---
[employer] CODE ENFORCEMENT OFFICER SHOWS AFIB WITH RVR. HR 135 TO 145/MIN. BP 99/67. DR. PATTERSON AWARE. NO NEW ORDERS GIVEN.
[2019-07-05] MEDS ORDERED: FUROSEMIDE 20 MG/2 ML VIAL IVP SCH (17:15)
--- NOTE | 2019-07-05 17:15 | NUR ---
BLLE ULTRASOUND AT BEDSIDE.
--- NOTE | 2019-07-05 17:25 | NUR ---
DR. PATHAK IN TO SEE PT. DR. PATHAK AWARE OF INCREASED HR IN 140'S BPM. WILL FOLLOW UP WITH ANY NEW ORDERS.
[2019-07-05] MEDS ORDERED: METOPROLOL 5 MG/5 ML VIAL IV PRN (17:50)
--- NOTE | 2019-07-05 17:50 | NUR ---
DR. GRAY MADE AWARE THAT CT ANGIO CANNOT BE DONE DUE TO PT'S ALLERGY TO IODINE.
[2019-07-05 18:00] VITALS: BP 117/78
[2019-07-05] MEDS ORDERED: DIGOXIN 0.25 MG/ML AMP IV SCH (18:20)
[2019-07-05] MEDS ORDERED: SOTALOL 80 MG TAB PO SCH (18:20)
--- NOTE | 2019-07-05 18:49 | NUR ---
DIGOXIN 0.[address] BLANDON.
[2019-07-05] MEDS: ACETAMINOPHEN 325 MG TAB PO PRN (18:57)
[2019-07-05] MEDS: ALBUTEROL SULFATE/IPRATROPIU 3 ML SOL IH SCH (19:00)
[2019-07-05] MEDS ORDERED: DILTIAZEM 60 MG TAB PO SCH (19:00)
--- NOTE | 2019-07-05 19:00 | NUR ---
RCV'D PT ON 2 L NC. SPO2 96%. NO SOB OR DISTRESS NOTED. PT IS AWAKE AND ALERT. HHN TX NOT GIVEN DUE TO ELEVATED PULSE 151. RN AWARE. RCV'D BIPAP ORDER FOR PT BUT PATIENT REFUSED. MD BLANDON IS AWARE AND PER MD BLANDON SHE WILL HAVE A TALK WITH A PATIENT AND LET RT KNOW IF ANY CHANGES. CHARGE NURSE DUKE AND BETTY VU AWARE WELL. WILL CONTINUE TO MONITOR PT.
--- NOTE | 2019-07-05 19:18 | NUR ---
REPORT GIVEN TO ASSESSMENT NURSE PRACTITIONER RN FOR CONTINUITY OF CARE. NO S/SX OF DISTRESS NOTED AT THIS TIME.
--- NOTE | 2019-07-05 19:19 | NUR ---
REPORT RECEIVED FROM AM NURSE AT BEDSIDE. PT IN STABLE CONDITION. AAOX4. INTRODUCED SELF TO PT. BOARD UPDATED. NO COMPLAINTS OF PAIN. ALREADY MEDICATED. NO SOB ON 2L O2 VIA NC. AFEBRILE. PT IS AMBULATORY WITH A WALKER. IV SITE R FA 20G RUNNING NS@10ML/HR PATENT AND INTACT. SKIN WARM, DRY, AND NOT INTACT DUE TO SKIN TEARS ON BILATERAL LOWER EXTREMITIES. BED LOCKED IN LOW POSITION. CALL HARDY WITHIN REACH. SAFETY PRECAUTION IN PLACE. ALL NEEDS MET AT THIS TIME.
[2019-07-05 20:00] VITALS: BP 122/71
--- NOTE | 2019-07-05 20:55 | NUR ---
SPOKE WITH DR PATHAK REGARDING EVENING PO MEDS. INFORMED MD THAT PT RECEIVED X1 DOSES OF CARDIZEM AND SOTALOL. PT HR NOW 80-90S AFIB BP 128/51. MD STATED TO HOLD SOTALOL FOR NIGHT DOSE, RESTART IN AM. CARDIZEM OK TO GIVE SCHEDULED ON EMAR.
[2019-07-05] MEDS: SOTALOL 80 MG TAB PO SCH (21:00)
[2019-07-05] MEDS: DILTIAZEM 60 MG TAB PO SCH (21:01)
[2019-07-05] MEDS: APIXABAN 2.5 MG TAB PO SCH (21:01)
[2019-07-05] MEDS: TAMSULOSIN 0.4 MG CAP PO SCH (21:01)
--- NOTE | 2019-07-05 21:01 | NUR ---
CARDIZEM, ELIQUIS, FLOMAX, AND METAMUCIL GIVEN PO. BETAPACE HELD DUE TO PT RECEIVING AT 1900. PT TOLERATED WELL.
[2019-07-05] MEDS: PSYLLIUM 12.2 GM/PKT PO SCH (21:02)
--- NOTE | 2019-07-05 21:19 | NUR ---
MORPHINE GIVEN FOR 7/10 BACK PAIN. PT TOLERATED WELL.
--- NOTE | 2019-07-05 21:45 | NUR ---
DISCUSSED PATIENT TO BE ON BIPAP. PATIENT REFUSED STATING IT MAKES HIM FEEL UNEASY AND DISTRESSED WITH IT ON.
--- NOTE | 2019-07-05 21:45 | NUR ---
CHECK ON PT AGAIN. PT STILL ON NASAL CANNULA. EXPLAINED TO PATIENT AGAIN HOW IMPORTANT FOR HIM TO WEAR BIPAP PER MD ORDER. PT STATED HE DOES NOT WANT TO WEAR IT BECAUSE IT MAKES HIM FEEL ANXIOUS. CHARGE NURSE ACACIA IN ROOM TOO AND TALKED WITH PATIENT BUT PT STILL REFUSED AGAIN. WE EXPLAINED COMPLICATIONS THAT MIGHT HAPPEN IS PATIENT STOPS BREATHING OR BECOMES HYPOXIC PT VERBALIZED UNDERSTANDING. WILL CONTINUE TO MONITOR.
--- NOTE | 2019-07-05 21:58 | NUR ---
ATIVAN GIVEN FOR AGITATION. PT TOLERATED WELL.
[2019-07-05 22:00] VITALS: BP 141/67
--- NOTE | 2019-07-05 23:00 | NUR ---
PT CONTINUES TO TO TAKE OFF HIS NASAL CANNULA AND DESATS. NONCOMPLIANT WITH HIS CARE. HE WANTS TO GET UP OUT OF BED BUT HE IS CONNECTED TO ALL THE LINES. HE TAKES OFF HIS CLOTHES AND TAKES OFF HIS BP CUFF AND LEADS.
[2019-07-05] MEDS ORDERED: MELATONIN 3 MG TAB PO PRN (23:45)
[2019-07-05] MEDS: FUROSEMIDE 40 MG/4 ML VIAL IVP SCH (23:57)
--- NOTE | 2019-07-05 23:57 | NUR ---
LASIX GIVEN IVP. PT TOLERATED WELL.
[2019-07-06] VITALS (8 sets, daily range): BP systolic 102–124; BP diastolic 41–69
--- NOTE | 2019-07-06 00:15 | NUR ---
PT CONTINUES TO PULL SPO2 SENSOR OFF AND TAKE BP CUFF OFF WELL. REDIRECTED AND EDUCATED PT ABOUT CABLES AND PARACHUTIST/COMBATANT DIVER QUALIFIED. PT NON COMPLIANT, STATES HE IS DOES NOT LIKE TO HAVE THEM ON. REAPPLIED CABLES TO PT. INFORMED DR OLIVAS ABOUT PT NON COMPLIANCE. WILL CONTINUE TO MONITOR.
--- NOTE | 2019-07-06 01:00 | NUR ---
PT CONTINUOUS REMOVES HIS NASAL CANNULA AND EDUCATED MULTIPLE TIMES ON WHY HE NEEDS TO KEEP IT ON BUT HE IS STILL NONCOMPLIANT AND TAKES IT OFF ALONG WITH HIS LEADS AND BLOOD PRESSURE CUFF.
[2019-07-06] MEDS ORDERED: traZODone 50 MG TAB PO PRN (01:15)
--- NOTE | 2019-07-06 02:45 | NUR ---
PT SLEEPING BUT PULLS OFF HIS NASAL CANNULA, LEADS, AND O2 MONITOR. PT VERY NON COMPLIANT AND DESATS DUE TO NO O2 VIA NC.
--- NOTE | 2019-07-06 04:50 | NUR ---
MORNING CARE OFFERED TO PATIENT, INSTRUCTED PT TO WIPE BODY AND CHANGE GOWN. STATED TO PT TO CLEAN MUCH HE COULD TOLERATE AND WE WOULD ASSIST WITH FURTHER CARE. PT REFUSED CARE @ THIS TIME, PT TAKING ALL LINEN AND GOWN OFF AND IS REFUSING TO CLEAN UP THIS AM. PT YELLING AND NON COMPLIANT. OTHER STAFF @ BEDSIDE REASSURED PT TO CALM DOWN AND PRACTICE DEEP BREATHING. VSS WILL CONTINUE TO OBSERVE.
[2019-07-06] MEDS: FUROSEMIDE 40 MG/4 ML VIAL IVP SCH ×3 (05:04→17:21)
--- NOTE | 2019-07-06 05:05 | NUR ---
LASIX GIVEN IVP. PT TOLERATED WELL.
[2019-07-06 05:52] LABS: BASOPHILS # (AUTO) 0.1 K/uL (0.00-0.22); BASOPHILS % (AUTO) 0.5 % (0.0-2.0); EOSINOPHILS # (AUTO) 0.1 K/uL (0-0.4); EOSINOPHILS % (AUTO) 0.5 % (0.0-4.0); HEMATOCRIT 27.6 % (36-52); HEMOGLOBIN 8.5 g/dL (12.0-18.0); LYMPHOCYTES # (AUTO) 0.9 K/uL (2.0-11.5); MEAN CORPUSCULAR VOLUME 97.2 fL (80-94); MONOCYTES # (AUTO) 0.5 K/uL (0.8-1.0); MONOCYTES % (AUTO) 4.8 % (1.7-9.3); NEUTROPHILS # (AUTO) 9.8 K/uL (1.8-7.7); NEUTROPHILS % (AUTO) 86.2 % (42.2-75.2); PLATELET COUNT (AUTO) 415 K/uL (140-450); RED BLOOD CELL COUNT(AUTO) 2.84 MIL/uL (4.20-6.10); RED CELL DISTRIBUTION WIDTH 17.6 % (11.6-13.7); WHITE BLOOD COUNT (AUTO) 11.3 K/uL (4.8-10.8)
--- NOTE | 2019-07-06 06:30 | NUR ---
TRANSFERRED PT TO TELE. REPORT GIVEN TO CALEB HERNÁNDEZ. PT IN STABLE CONDITION.
--- NOTE | 2019-07-06 06:30 | NUR ---
SPOKE WITH DR MOJICA THIS AM REGARDING PAST HX OF + MRSA SPUTUM, MADE AWARE, CONTACT ISOLATION @ THIS TIME. AWAITING NEW ORDERS.
[2019-07-06 06:31] LABS: CHOL/HDL RATIO 1.7 (1-4.5); MAGNESIUM 2.1 mg/dL (1.8-2.4)
[2019-07-06 06:36] LABS: ANION GAP 11.7 (8-16); CARBON DIOXIDE 30.7 mmol/L (21-32); CREATININE 2.2 mg/dL (0.6-1.3); POTASSIUM 5.4 mmol/L (3.5-5.1)
--- NOTE | 2019-07-06 07:00 | NUR ---
SPOKE WITH DR GRAY, REGARDING ICU STATUS, PT NOW CONTROLLED AFIB 80S BP WNL, 110/57. RECOMMENDING TO DOWNGRADE TO TELE STATUS. MD WILL SEE PT. WILL CONTINUE TO OBSERVE.
--- NOTE | 2019-07-06 07:23 | NUR ---
REPORT GIVEN TO AM NURSE AT BEDSIDE. PT IN STABLE CONDITION.
--- NOTE | 2019-07-06 07:30 | NUR ---
REPORT RECEIVED FROM MAURA HERNÁNDEZ. PT IS AWAKE, ALERT AND ORIENTED. DENIES ANY PAINS NOR SOB AT THIS TIME. 02 2L/MIN/NC. OCC BOUTS OF NON PRODUCTIVE COUGH. INSTRUCTED ON SPUTUM COLLECTION FOR C/S. IV 0.9 NS INFUSING AT 10 ML/HR VIA RT FA IV SITE. TESFAYE CATH. INTACT AND PATENT DRAINING TO CLEAR YELLOW URINE. MEAT AND POULTRY INSPECTOR SHOWS SR WITHOUT ECTOPICS HR 80 TO 82/MIN. NON PITTING EDEMA OF LOWER EXT NOTED. KEEPS ON ASKING FOR JUICE AND COFFEE. REMINDED PT. THAT HE IS ON FLUID RESTRICTION. PT ALSO INFORMED THAT HE WILL BE ON CONTACT ISOLATION DUE TO HX OF MRSA IN THE SPUTUM.
[2019-07-06 07:50] LABS: MEAN CORPUSCULAR HEMOGLOBIN 30 pg (27-31); MEAN CORPUSCULAR HGB CONC 31 g/dL (33-37)
--- NOTE | 2019-07-06 08:00 | NUR ---
DR. ABRAHAM AT BEDSIDE. SPOKE TO PT.
--- NOTE | 2019-07-06 08:10 | NUR ---
DR. BISHOP AT BEDSIDE TO SEE AND EXAMINE PT. SPOKE TO PT RE: HIS CONDITION.
[2019-07-06] MEDS: ALBUTEROL SULFATE/IPRATROPIU 3 ML SOL IH SCH ×3 (08:12→19:00)
--- NOTE | 2019-07-06 08:12 | NUR ---
AWAKE AND ALERT EDUCATION PROVIDED TO PATIENT FOR SPUTUM CULTURE OBTAINMENT SPECIMEN PLACED ON PATIENT TABLE WITHIN REACH
--- NOTE | 2019-07-06 08:18 | NUR ---
PATIENT HAS BEEN SCREENED AND CATEGORIZED HIGH NUTRITION RISK. PATIENT WILL BE SEEN WITHIN 1-2 DAYS OF ADMISSION. 07/06/19-07/07/[address]
[2019-07-06] MEDS: DILTIAZEM 60 MG TAB PO SCH ×3 (08:27→17:21)
[2019-07-06] MEDS: SOTALOL 80 MG TAB PO SCH ×2 (08:28→21:00)
[2019-07-06] MEDS: BACLOFEN 10 MG TAB PO PRN (08:30)
[2019-07-06] MEDS: PANTOPRAZOLE 40 MG TABEC PO SCH (08:30)
[2019-07-06] MEDS: BISACODYL 5 MG TABEC PO PRN (08:31)
[2019-07-06] MEDS: PSYLLIUM 12.2 GM/PKT PO SCH ×2 (08:31→21:00)
[2019-07-06] MEDS: APIXABAN 2.5 MG TAB PO SCH ×2 (08:33→20:52)
[2019-07-06] MEDS: FERROUS SULFATE 325 MG TABEC PO SCH ×2 (08:50→17:21)
[2019-07-06] MEDS ORDERED: FUROSEMIDE 20 MG/2 ML VIAL IVP SCH (09:00)
[2019-07-06] MEDS ORDERED: FERROUS SULFATE 325 MG TABEC PO SCH (09:00)
[2019-07-06] MEDS ORDERED: SODIUM ZIRCONIUM CYCLOSILICATE 10 GM POWD.PACK PO SCH (09:00)
[2019-07-06] MEDS: LACTOBACILLUS RHAMNOSUS GG 1 EACH CAP PO SCH ×2 (09:00→10:51)
--- NOTE | 2019-07-06 09:00 | NUR ---
02 INCREASED TO 3 L/MIN/NC. 02 SAT GOES DOWN TO LOW 80'S WHEN SLEEPING.
--- NOTE | 2019-07-06 10:00 | NUR ---
PT ACCIDENTALLY PULLED OUT HIS IV. RESTARTED IV ON RT AC BY ER NURSE AFTER TOTAL OF 3 ATTEMPT BY 3 DIFF. RNS.
--- NOTE | 2019-07-06 10:00 | NUR ---
PT. KEEPS ON ASKING FOR [employer] SANDWICH AND DRINK, WAS ALREADY GIVEN ONE AT 0900. REINSTRUCTED ON CARDIAC DIET AND FLUID RESTRICTION. GETS UPSET AND VERBALLY ABUSIVE TOWARDS STAFF. KEEPS ON CALLING FOR NURSE ABOUT Q5 MINUTES WHEN HE DOES NOT GET WHAT HE WANTS.
[2019-07-06] MEDS: LEVOFLOXACIN 750 MG/D5W PREMIX 150 ML IV SCH (10:50)
[2019-07-06] MEDS: ACETAMINOPHEN 325 MG TAB PO SCH (10:54)
--- NOTE | 2019-07-06 11:00 | NUR ---
PT AT BEDSIDE. SAT PT ON HIS WALKER SEAT.
--- NOTE | 2019-07-06 11:15 | NUR ---
DIETITIAN AT BEDSIDE. GAVE PT. DIET INSTRUCTIONS.
--- NOTE | 2019-07-06 11:48 | NUR ---
DC PLANNIN YRS OLD MALE PATIENT WAS ADMITTED FROM [facility] WITH A DX OF A-FIB, COPD AND CHF. PT HAS A HX OF ASTHMA, COPD , SLEEP APNEA . CXR (-) EKG SHOWED SINUS TACH 140 HR , ELEVATED TROPONIN AND D-DIMER CARDIO AND PULMO CONSULTED , RT PROTOCOL INITIATED STARTED ON SOLU MEDROL, LASIX IV AND BIPAP. DC PLAN TO GO BACK TO [facility] WHEN STABLE CM TO FOLLOW. Addendum: 07/10/19 at 1359 by Rebekah Skaggs DC PLANNING PT HAS AN ORDER TO GO TO SNF FOR IV ABX CALLED [employer] FOR [facility]ED [facility]ILITIES [facility] PATIENT CAN GO TO ROOM 21B AUTH# [id number] # TO GIVE REPORT [phone] ARRANGED TRANSPORT WITH [facility] [employer] OR BARGE MATE TIME 2:30 PM NOTIFIED MICHELLE HERNÁNDEZ.
--- NOTE | 2019-07-06 12:00 | NUR ---
USED THE BEDPAN. HAD MODERATE AMOUNT OF HARD FORMED DARK BROWN STOOLS. BATH AND PERINEAL CARE DONE. LINENS CHANGED.
[2019-07-06] MEDS: methylPREDNISolone SS 125 MG/2 ML VIAL IVP SCH ×2 (12:13→20:54)
[2019-07-06] MEDS: SODIUM CHLORIDE FLUSH 10 ML SYR IVF SCH ×2 (12:16→17:30)
--- NOTE | 2019-07-06 13:50 | NUR ---
TRANSFERRED TO TELE 124 B PER BED ON CHEMIC MANGLER. 02 AT 3 L/MIN/NC. WALKED FROM ICU BED TO TELE BED WITH MINIMAL ASSIST. NO SOB NOTED. REPORT GIVEN TO SIXTO HERNÁNDEZ.
--- NOTE | 2019-07-06 14:00 | NUR ---
RECEIVED REPORT FROM ICU NURSE FOR CONTINUITY OF CARE, PT BROUGHT TO UNIT IN [facility], PT STOOD UP AND MOVED ONTO BED, PT STABLE, PT ON 3L NC, PT HAS RIGHT AC 22G SALINE LOCK, PT IS ON FLUID RESTRICTION AND VERBALIZED UNDERSTANDING, TESFAYE CATH IN PLACE, PT IS STABLE, INTRODUCE SELF AND INTRODUCE PT TO ROOM, UPDATE WHITEBOARD, CALL LIGHT WITHIN REACH, WILL CONTINUE TO MONITOR.
--- NOTE | 2019-07-06 14:08 | NUR ---
07/06/19 RD INITIAL ASSESSMENT COMPLETED PLEASE REFER TO NUTRITION ASSESSMENT UNDER CARE ACTIVITY FOR ESTIMATED NUTRITIONAL NEEDS. 1. CONTINUE CARDIAC DIET TOLERATED 2. RD SPOKE TO PT TO RESTRICT SANDWICH INTAKE TO 2 SANDWICHES IN BETWEEN MEALS A DAY. PT VERBALIZED UNDERSTANDING 3. RD PROVIDED NUTRITION THERAPY EDUCATION FOR CHF 4. RD TO FOLLOW-UP 3-5 DAYS, MODERATE RISK MUMTAZ [address] RD
--- NOTE | 2019-07-06 14:49 | NUR ---
SATURATION 86% ON SUPPLEMENTAL OXYGEN AT 3 LPM VIA NC POST HHN THERAPY CHANGED O2 DEVICE TO OXYMIZER AT 4 LPM SIXTO/RN NOTIFIED MECHANICAL COMMISSIONING ENGINEER TO MONITOR
--- NOTE | 2019-07-06 15:11 | NUR ---
PT ASLEEP IN BED, NO SIGNS OF DISTRESS NOTED, PT ON O2 OXIMIZER, PT IS STABLE, CALL LIGHT WITHIN REACH.
--- NOTE | 2019-07-06 19:26 | NUR ---
PATIENT IS AGITATED AND WILL NOT TAKE HIS BREATHING TX. PT WILL NOT LET ME TAKE HIS HR AND SATURATION READING. PT REMAINS ON 3L OXYMIZER. WILL CONT TO MONITOR
--- NOTE | 2019-07-06 19:27 | NUR ---
GAVE REPORT TO NIGHT NURSE FOR CONTINUITY OF CARE, PT IS STABLE.
--- NOTE | 2019-07-06 19:29 | NUR ---
RECEIVED PT FROM SIXTO HERNÁNDEZ PT IS AAOX2 EMMA, MORBID OBESITY ON TELE SR, PAC /PACER ON DEMAND . PT UNCOOPERATIVE WITH NURSES HL ON RT FA PATENT, TESFAYE CATH DRINING WELL YELLOW URINE, ON OXIMIZER 4 LTS INITIAL ASSESSMENT DONE .
[2019-07-06] MEDS: TAMSULOSIN 0.4 MG CAP PO SCH (20:54)
[2019-07-06] MEDS ORDERED: traZODone 50 MG TAB PO SCH (21:00)
--- NOTE | 2019-07-06 22:48 | NUR ---
PT HAS BEEN MONITORING CLOSE NIGHT ASSISTANT HELP PT TO GO TO BED NOW PT IS SLEEPING QUIAET NOT DISTRESS NOTED
[2019-07-07] VITALS: BP 145/70
[2019-07-07] MEDS: SODIUM CHLORIDE FLUSH 10 ML SYR IVF SCH ×5 (00:16→23:15)
[2019-07-07] MEDS: FUROSEMIDE 40 MG/4 ML VIAL IVP SCH (00:18)
--- NOTE | 2019-07-07 02:00 | NUR ---
;PT HKAS BEEN MONITORING CLOSE NKOT DISTRESS NOTED ON TEL SA
[2019-07-07 04:00] VITALS: BP 149/72
[2019-07-07] MEDS: methylPREDNISolone SS 125 MG/2 ML VIAL IVP SCH (05:02)
--- NOTE | 2019-07-07 05:48 | NUR ---
PT RESTING ON BED ON TELE SR PT HAS SOB TO LITTLE EXERTION
[2019-07-07 05:50] LABS: WHITE BLOOD COUNT (AUTO) 12.9 K/uL (4.8-10.8)
[2019-07-07 06:08] LABS: HEMATOCRIT 29.6 % (36-52); HEMOGLOBIN 9.1 g/dL (12.0-18.0); MEAN CORPUSCULAR HGB CONC 31 g/dL (33-37); PLATELET COUNT (AUTO) 455 K/uL (140-450); RED BLOOD CELL COUNT(AUTO) 3.05 MIL/uL (4.20-6.10); RED CELL DISTRIBUTION WIDTH 17.5 % (11.6-13.7)
--- NOTE | 2019-07-07 06:25 | NUR ---
PT ON SOB TO LITTLE EXERTION ON TELE SR AND PAC. PT WILL BE ENDORSED TO DAY SHIFT NURSE FOR CONTINUE OF CARE
[2019-07-07 06:40] LABS: BASOPHILS % (MANUAL) 0 % (0-2); EOSINOPHILS % (MANUAL) 0 % (0-4); LYMPHOCYTES % (MANUAL) 9 % (20-46); MONOCYTES % (MANUAL) 2 % (5-12)
[2019-07-07 06:41] LABS: MEAN CORPUSCULAR HEMOGLOBIN 30 pg (27-31)
[2019-07-07 07:07] LABS: CARBON DIOXIDE 32.6 mmol/L (21-32); CREATININE 2.4 mg/dL (0.6-1.3); POTASSIUM 4.6 mmol/L (3.5-5.1)
[2019-07-07] MEDS: ALBUTEROL SULFATE/IPRATROPIU 3 ML SOL IH SCH ×3 (07:07→19:38)
[2019-07-07 07:10] LABS: MAGNESIUM 2.2 mg/dL (1.8-2.4); PHOSPHORUS 4.9 mg/dL (2.5-4.9)
--- NOTE | 2019-07-07 07:25 | NUR ---
RECEIVED REPORT FROM GUIDE WINDER NURSE. PATIENT LYING DOWN IN BED, AAOX2/3, DEMANDING AND RUDE TO NURSING STAFF. RESPIRATIONS EVEN, UNLABORED, ON O2 4L/MIN VIA OXIMIZER. IV SITE INTACT, PATENT, ON SL. ABDOMEN SOFT, OBESE. SKIN COLOR APPROPRIATE TO ETHNICITY, AND WARM TO TOUCH. SKIN INTACT. REVIEWED PLAN OF CARE WITH PATIENT. REINFORCEMENT NEEDED. SAFETY MEASURES IN PLACE, CALL LIGHT WITHIN REACH. WILL CONTINUE TO MONITOR.
[2019-07-07 08:00] VITALS: BP 134/77
[2019-07-07] MEDS ORDERED: FUROSEMIDE 40 MG/4 ML VIAL IVP SCH (09:15)
[2019-07-07] MEDS: LACTOBACILLUS RHAMNOSUS GG 1 EACH CAP PO SCH (09:56)
[2019-07-07] MEDS: SOTALOL 80 MG TAB PO SCH ×2 (09:56→20:20)
[2019-07-07] MEDS: PANTOPRAZOLE 40 MG TABEC PO SCH (09:57)
[2019-07-07] MEDS: BISACODYL 5 MG TABEC PO PRN (09:57)
[2019-07-07] MEDS: FERROUS SULFATE 325 MG TABEC PO SCH ×2 (09:57→17:37)
[2019-07-07] MEDS: ACETAMINOPHEN 325 MG TAB PO SCH (09:58)
[2019-07-07] MEDS: APIXABAN 2.5 MG TAB PO SCH ×2 (09:59→20:21)
[2019-07-07] MEDS: PSYLLIUM 12.2 GM/PKT PO SCH ×2 (10:00→20:20)
--- NOTE | 2019-07-07 10:08 | NUR ---
SCHEDULED MEDICATION DUE GIVEN. CONTINUE TO MONITOR PATIENT.
[2019-07-07 10:10] LABS: FOLIC ACID 9.5 ng/mL (>3.0)
--- NOTE | 2019-07-07 11:05 | NUR ---
SCHEDULED MEDICATIONS DUE GIVEN. URINE SPECIMEN COLLECTED FC PORT. CONTINUE TO MONITOR PATIENT
[2019-07-07] MEDS: CHLORHEXADINE GLUC 2% CLOTH TP SCH (12:00)
--- NOTE | 2019-07-07 12:29 | NUR ---
DISCHARGE PLANNING: THIS IS A 63 Y/O MALE PATIENT FROM HOME, WHO CAME IN DUE TO SOB X 3 DAYS. PAST MEDICAL HISTORY INCLUDE HTN, CHF, ASTHMA, A FIB, COPD, SLEEP APNEA, BPH AND OBESITY. INITIAL DIAGNOSIS OF AFIB, COPD AND CHF. CURRENT LABS INCLUDE WBC 12.9, H/H 9.1/29.6, NA/K 147/4.6, BUN/CREA 11/54. ON LASIX IV, SOLU MEDROL AND LEVAQUIN. CARDIO, NEPHRO AND PULM CONSULTS IN PLACE. DC PLAN PENDING ON PATIENT'S RESPONSE TO TREATMENT. Addendum: 07/08/19 at 1245 by Rebekah Skaggs CM DC PLANNING: PT REMAINS NON-COMPLIANT OF MEDICATION AND MEDICAL THERAPY, CONTINUE IV LEVAQUIN 750 Q 48 HRS, IV LASIX ,ON 3L OXYMIZER O2 SAT 94% REPEAT CXRAY . SEEN BY NEPHRO CARDIO AND PULMO ADVISED TO BE COMPLIANT WITH THE THERAPY DECREASED STEROIDS DC PLAN PER PT'S RESPOND TO TREATMENT CM TO FOLLOW Addendum: 07/10/19 at 1143 by Ayla Alfonso CM RECEIVED AN ORDER FOR SNF PLACEMENT FOR IV ANTIBIOTICS FOR 5 MORE DAYS. CONTACTED [employer] [facility] [id number], SHE STATED SHE IS NOT THE SW WORKING TODAY AND TO CALL THE MAIN LINE. CONTACTED [employer] AT [phone], ABLE TO SPEAK TO CROW, SHE STATED IRVIN Covington IS THE SW WORKER TODAY AND THE NUMBER IS [phone] AND THE FAX NUMBER IS [phone]. CONTACTED THE PROVIDED NUMBER, NO ANSWER. LEFT A DETAILED MESSAGE. CLINICALS AND ORDER FAXED TO THE PROVIDED NUMBER. WILL FOLLOW UP. Addendum: 07/10/19 at 1259 by Anderson Arriaza ARTURO contacted [employer] Direct Line [phone] and spoke to Maryse regarding transportation auth. Maryse transferred SW to ARTURO Dhillon from [employer] [facility]. ART[facility]O left voicemail. ART[facility]O will follow up regarding transportation.
[2019-07-07] MEDS: methylPREDNISolone SS 40 MG/ML VIAL IVP SCH ×2 (13:07→20:20)
[2019-07-07] MEDS: MUPIROCIN CA NASAL 2% 1GM TUBE NS SCH (13:07)
--- NOTE | 2019-07-07 13:11 | NUR ---
SCHEDULED MEDICATIONS DUE GIVEN. WILL CONTINUE TO MONITOR
[2019-07-07 13:30] VITALS: BP 118/58
[2019-07-07 16:00] VITALS: BP 118/55
--- NOTE | 2019-07-07 17:40 | NUR ---
SCHEDULED MEDICATION DUE GIVEN.WILL CONTINUE TO MONITOR
--- NOTE | 2019-07-07 19:06 | NUR ---
GAVE REPORT TO PRICE LISTER NURSE AND CONTINUE MEDICATIONS.
--- NOTE | 2019-07-07 19:10 | NUR ---
RECEIVED REPORT FROM DAY RN. PATIENT LYING DOWN IN BED, AAOX2/3, DEMANDING AND RUDE TO NURSING STAFF. RESPIRATIONS EVEN, UNLABORED, ON O2 2L/MIN VIA OXIMIZER. LUNG SOUNDS CLEAR DIMINISHED AT BASE. IV ON R FA 22G SL.IV SITE INTACT, PATENT. ABDOMEN SOFT, OBESE. SKIN COLOR APPROPRIATE TO ETHNICITY, AND WARM TO TOUCH. SKIN INTACT. PT WITH PITTING EDEMA +3. REVIEWED PLAN OF CARE WITH PATIENT. REINFORCEMENT NEEDED. SAFETY MEASURES IN PLACE, CALL LIGHT WITHIN REACH. WILL CONTINUE TO MONITOR.
[2019-07-07 20:00] VITALS: BP 142/81
[2019-07-07] MEDS: BACLOFEN 10 MG TAB PO PRN (20:20)
[2019-07-07] MEDS: TAMSULOSIN 0.4 MG CAP PO SCH (20:20)
--- NOTE | 2019-07-07 20:21 | NUR ---
VSS. LIAN MEDICATIONS GIVEN PER ORDERS. ADMINISTERED BACLOFEN FOR C/C MUSCLE SPASM. PT TOLERATED WELL. PT SITTING UP EATING SANDWICH PER REQUEST. CALL LIGHT IS WITHIN REACH. WILL CONTINUE TO MONITOR.
--- NOTE | 2019-07-07 22:00 | NUR ---
PT YELLING REQUESTING CRANBERRY JUICE WANTS 4 BOX OF JUICE, GAVE ONE PER REQUEST EDUCATED PT ON HIS FLUID RESTRICTION AND ON IMPORTANCE OF BEING COMPLIANT. ALL SAFETY MEASURES ARE IN PLACE. WILL CONTINUE TO MONITOR.
[2019-07-08] VITALS: BP 131/73
--- NOTE | 2019-07-08 | NUR ---
VITAL SIGNS ARE WITHIN NORMAL LIMITS. PT REFUSING NC PT SAT 89% HX COPD. EDUCATED PT STILL REFUSING. PT IS VERY DEMANDING REQUESTING "A DRINK" EDUCATED PT ON IMPORTANCE TO BE COMPLIANT ON FLUID RESTRICTION. WILL CONTINUE TO MONITOR.
--- NOTE | 2019-07-08 02:00 | NUR ---
PT SITTING IN BED WATCHING TV. NC 2L O2 ON. NO S/S OF DISTRESS. CALL LIGHT IS WITHIN REACH.
[2019-07-08 04:00] VITALS: BP 121/80
--- NOTE | 2019-07-08 04:00 | NUR ---
VITAL SIGNS ARE WITHIN NORMAL LIMITS. LIAN SOLU-MEDROL GIVEN PER ORDERS. ALL NEEDS MET. CALL LIGHT IS WITHIN REACH.
[2019-07-08] MEDS: methylPREDNISolone SS 40 MG/ML VIAL IVP SCH ×3 (04:07→20:27)
[2019-07-08] MEDS: SODIUM CHLORIDE FLUSH 10 ML SYR IVF SCH ×3 (05:22→17:41)
--- NOTE | 2019-07-08 06:50 | NUR ---
PT IS SLEEPING COMFORTABLY IN BED WITH OXIMIZER ON 2L O2. CHEST RISE AND FALL NOTED. PT IS STABLE. WILL ENDORSE TO DAY RN.
[2019-07-08] MEDS: ALBUTEROL SULFATE/IPRATROPIU 3 ML SOL IH SCH ×3 (06:54→19:37)
--- NOTE | 2019-07-08 07:10 | NUR ---
RECEIVED REPORT FROM NIGHT NURSE FOR CONTINUITY OF CARE, PT IS STABLE, PT AAOX4, INTRODUCE SELF, PT HAS A RIGHT UA PICC 2-LUMEN PICC LINE, RED PORT IS NOT FLUSHING, THE OTHER PORT HAS NS INFUSING AT 10ML/H, PT HAS LEFT CRUZ STITCHES OPEN TO AIR, INFORMED O2 MUST BE ABOVE 92%, PT IS STABLE, NO SIGNS OF RESPIRATORY DISTRESS NOTED, UPDATE WHITEBOARD, SAFETY MEASURES IN PLACE, CALL LIGHT WITHIN REACH, WILL CONTINUE TO MONITOR. Addendum: 07/08/19 at 0746 by Sofía Wallace RN WRONG PATIENT
--- NOTE | 2019-07-08 07:15 | NUR ---
RECEIVED REPORT FROM NIGHT NURSE, PT ASLEEP, PT HAS A RIGHT FA 22G SALINE LOCK, PT IS ON 3L OXIMIZER, PT HAS LOWER LEG ABRASIONS AND +3 PITTING EDEMA, PT HAS TESFAYE CATH IN PLACE, UPDATE WHITEBOARD, SAFETY MEASURES IN PLACE, WILL CONTINUE TO MONITOR,
[2019-07-08 08:00] VITALS: BP 92/50
[2019-07-08] MEDS: FERROUS SULFATE 325 MG TABEC PO SCH ×2 (08:00→17:34)
[2019-07-08] MEDS: SOTALOL 80 MG TAB PO SCH ×2 (09:00→20:17)
[2019-07-08] MEDS: LEVOFLOXACIN 750 MG/D5W PREMIX 150 ML IV SCH (09:47)
[2019-07-08] MEDS: FUROSEMIDE 40 MG/4 ML VIAL IVP SCH (09:47)
[2019-07-08] MEDS: LACTOBACILLUS RHAMNOSUS GG 1 EACH CAP PO SCH (09:48)
[2019-07-08] MEDS: BISACODYL 5 MG TABEC PO PRN (09:48)
[2019-07-08] MEDS: ACETAMINOPHEN 325 MG TAB PO SCH ×2 (09:48→09:55)
[2019-07-08] MEDS: PSYLLIUM 12.2 GM/PKT PO SCH ×2 (09:49→20:19)
[2019-07-08] MEDS: PANTOPRAZOLE 40 MG TABEC PO SCH (09:49)
[2019-07-08] MEDS: APIXABAN 2.5 MG TAB PO SCH ×2 (09:53→20:12)
--- NOTE | 2019-07-08 09:55 | NUR ---
ADMINISTERED ORDERED MEDICATION, MEDICATION EDUCATION GIVEN, PT TOLERATED MEDICATION WELL, PT KEEPS ASKING FOR WATER, REMINDED PT HE IS ON FLUID RESTRICTION, PT REFUSED FLUID RESTRICTION AND ASKED FOR MORE WATER, INFORMED DR MOJICA THAT PT IS NOT COMPLIANT WITH FLUID RESTRICTIONS, PT STABLE, CALL LIGHT WITHIN REACH.
--- NOTE | 2019-07-08 11:30 | NUR ---
PT SITTING ON TOILET, SALES AND MARKETING SPECIALIST IN THE ROOM, PT IS STABLE
[2019-07-08 12:00] VITALS: BP 123/46
[2019-07-08] MEDS: MUPIROCIN CA NASAL 2% 1GM TUBE NS SCH (12:11)
[2019-07-08] MEDS: CHLORHEXADINE GLUC 2% CLOTH TP SCH (12:12)
--- NOTE | 2019-07-08 12:15 | NUR ---
ADMINISTERED ORDERED MEDICATION, EDUCATION GIVEN, PT TOLERATED WELL, PT IS STABLE, CALL LIGHT WITHIN REACH.
--- NOTE | 2019-07-08 13:55 | NUR ---
ADMINISTERED ORDERED MEDICATION, MEDICATION EDUCATION GIVEN, PT IS STABLE, SAFETY MEASURES IN PLACE, CALL LIGHT WITHIN REACH.
--- NOTE | 2019-07-08 15:40 | NUR ---
PT ASLEEP IN BED, PT IS STABLE, NO SIGNS OF DISTRESS NOTED, CALL LIGHT WITHIN REACH.
[2019-07-08 16:00] VITALS: BP 145/78
--- NOTE | 2019-07-08 17:00 | NUR ---
PT IS ASLEEP, PT IS STABLE, CALL LIGHT WITHIN REACH.
[2019-07-08 17:52] LABS: BASOPHILS % (AUTO) 0.2 % (0.0-2.0); EOSINOPHILS % (AUTO) 0.1 % (0.0-4.0); HEMATOCRIT 30.2 % (36-52); HEMOGLOBIN 9.4 g/dL (12.0-18.0); LYMPHOCYTES # (AUTO) 0.6 K/uL (2.0-11.5); LYMPHOCYTES % (AUTO) 3.8 % (20.5-51.1); MEAN CORPUSCULAR HEMOGLOBIN 30 pg (27-31); MEAN CORPUSCULAR HGB CONC 31 g/dL (33-37); MEAN CORPUSCULAR VOLUME 95.5 fL (80-94); MONOCYTES # (AUTO) 0.6 K/uL (0.8-1.0); MONOCYTES % (AUTO) 3.9 % (1.7-9.3); NEUTROPHILS # (AUTO) 13.2 K/uL (1.8-7.7); PLATELET COUNT (AUTO) 462 K/uL (140-450); RED BLOOD CELL COUNT(AUTO) 3.16 MIL/uL (4.20-6.10); RED CELL DISTRIBUTION WIDTH 17.5 % (11.6-13.7); WHITE BLOOD COUNT (AUTO) 14.3 K/uL (4.8-10.8)
[2019-07-08 18:02] LABS: ANION GAP 12.3 (8-16); CARBON DIOXIDE 30.9 mmol/L (21-32); POTASSIUM 4.2 mmol/L (3.5-5.1)
[2019-07-08 18:51] LABS: MAGNESIUM 2.1 mg/dL (1.8-2.4); PHOSPHORUS 4.5 mg/dL (2.5-4.9)
--- NOTE | 2019-07-08 19:10 | NUR ---
GAVE REPORT TO NIGHT NURSE FOR CONTINUITY OF CARE, PT IS STABLE.
--- NOTE | 2019-07-08 19:20 | NUR ---
RECEIVED REPORT FROM SIXTO RN DAYSHIFT NURSE AT BEDSIDE FOR CONTINUITY OF CARE, PT IN STABLE CONDITION.
[2019-07-08 20:00] VITALS: BP 141/72
--- NOTE | 2019-07-08 20:00 | NUR ---
PT IN BED AOX3 HE IS ON 2 1/2 LITERS N/C. PT LUNG SOUNDS DIMINISHED WITH INTERMITTED DRY NON PRODUCTIVE COUGH. PT ALSO HAS TESFAYE CATHETER INTACT AND DRAINING YELLOW URINE. PT ABDOMEN IS DISTENDED BUT SOFT, BOWEL SOUNDS HYPOACTIVE. V/S FOLLOWS; T 97.8 P 81 R21 B/P 145/65 02 100% WITH OXYMIZER(2.5 LITERS )IN PLACE. BED LOW AND PT HAS ALL FALLS AND CONTACT PRECAUTIONS IN PLACE.
[2019-07-08] MEDS: TAMSULOSIN 0.4 MG CAP PO SCH (20:18)
--- NOTE | 2019-07-08 20:30 | NUR ---
PT RECEIVED ORDERED MEDICATION OF SOLUMEDROL IVP, BETAPACE, ELIQUIS, FLOMAX AND METAMUCIL. EDUCATION REGARDING MEDICATION PROVIDED AT BEDSIDE. REINFORCEMENT PROVIDED AND PT VERBALIZED UNDERSTANDING.
--- NOTE | 2019-07-08 21:00 | NUR ---
PT C/O OF WANTING MORE FLUIDS. PT REMINDED THAT HE MAY [place] WHATEVER IS IN HIS PITCHER FOR THE NIGHT DUE TO FLUID RESTRICTIONS. PT UPSET SAYING HE WANTS TO GO HOME AND THAT HE WANTS MORE TO DRINK. TEACHING DONE AT BEDSIDE REGARDING WHY PT IS ON FLUID RESTRICTION ( DUE TO CHF). MD QUIÑONES ALSO SPOKE WITH PT REGARDING WHY HE IS ON FLUID RESTRICTION. PT ALSO NOTED WITH BLOOD TINGED URINE. MD QUIÑONES WAS MADE AWARE OF THE BLOOD TINGED URINE. ALL CONTACT AND FALLS PRECAUTIONS IN PLACE
--- NOTE | 2019-07-08 22:30 | NUR ---
PT TESFAYE CATHETER IRRIGATED WITH 30MLS STERILE WATER PER MD LEHMAN SUGGESTION. DRAINED 600MLS OF BLOOD TINGED URINE. WILL CONTINUE TO MONITOR URINE FOR BLOOD.
[2019-07-09] VITALS: BP 160/88
[2019-07-09] MEDS: SODIUM CHLORIDE FLUSH 10 ML SYR IVF SCH ×5 (00:31→23:52)
--- NOTE | 2019-07-09 00:31 | NUR ---
PT IN BED N/C RUNNING AT 2.5 LITERS ( PT C/O OF OXYMIZER AND WS GIVEN N/C INSTEAD. ). HIS TESFAYE CATHETER IS INTACT AND RUNNING YELLOW URINE. IV SITE 22 GUAGE INTACT AND WAS FLUSHED WITH NORMAL SALINE ORDERED. ALL REQUESTED NEEDS ATTENDED AND CALL HARDY IN REACH. ALL FALLS AND CONTACT PRECAUTIONS IN PLACE. V/S FOLLOWS; T 98.1 P 74 R 16 B/P 160/88 02 99% WITH 2.5 LITERS SUPPLEMENTAL 02.
[2019-07-09] MEDS ORDERED: CRUSHER, PILL MC ONE (00:54)
[2019-07-09] MEDS: BACLOFEN 10 MG TAB PO PRN (00:58)
--- NOTE | 2019-07-09 01:00 | NUR ---
PT C/O BACK PAIN 5/10 AND INSOMNIA, PT WAS GIVEN PO/PRN TRAZODONE FOR INSOMNIA AND BACLOFEN FOR MODERATE BACK PAIN. IV SITE INTACT AND ASYMPTOMATIC ALL FALLS AND CONTACT PRECAUTIONS IN PLACE.
[2019-07-09 04:00] VITALS: BP 131/54
--- NOTE | 2019-07-09 04:00 | NUR ---
PT IN BED SLEEPING NO C/O VOICED. TESFAYE CATHETER IN PLACE DRAINING YELLOW URINE N/C IN PLACE GIVING SUPPLEMENTAL O2 AT 2.5 LITERS SUPPLEMENTAL VIA N/C. V/S FOLLOWS: T 97.0 P 66 R 18 B/P 131/54 02 96%.
--- NOTE | 2019-07-09 05:00 | NUR ---
PT RECEIVED SOLUMEDROL IVP EDUCATION REINFORCED AT BEDSIDE. LAB DRAWS DONE AT BEDSIDE.
[2019-07-09] MEDS: methylPREDNISolone SS 40 MG/ML VIAL IVP SCH ×3 (05:58→21:18)
[2019-07-09] MEDS: ALBUTEROL SULFATE/IPRATROPIU 3 ML SOL IH SCH ×3 (06:37→20:24)
--- NOTE | 2019-07-09 07:15 | NUR ---
RECEIVED REPORT FROM TANKMAN NURSE. PT IS SLEEPING, NO SIGNS OF DISTRESS. CALL LIGHT WITHIN PT'S REACH. PT HAS IV AT RIGHT FOREARM 22G SALINE LOCK. PT IS ON CARDIAC DIET AND STRICT I&O OF 1500 ML/DAY. PT HAS O2 AT 2LPM VIA NC. PT HAS TESFAYE CATHETER. WILL CONTINUE TO MONITOR.
[2019-07-09 08:00] VITALS: BP 123/87
[2019-07-09] MEDS: FERROUS SULFATE 325 MG TABEC PO SCH ×2 (09:05→17:00)
[2019-07-09] MEDS: SOTALOL 80 MG TAB PO SCH ×2 (09:08→21:54)
[2019-07-09] MEDS: LACTOBACILLUS RHAMNOSUS GG 1 EACH CAP PO SCH (09:08)
[2019-07-09] MEDS: FUROSEMIDE 40 MG/4 ML VIAL IVP SCH (09:08)
[2019-07-09] MEDS: BISACODYL 5 MG TABEC PO PRN (09:09)
[2019-07-09] MEDS: PANTOPRAZOLE 40 MG TABEC PO SCH (09:10)
[2019-07-09] MEDS: PSYLLIUM 12.2 GM/PKT PO SCH ×2 (09:10→21:54)
[2019-07-09] MEDS: APIXABAN 2.5 MG TAB PO SCH ×2 (09:17→21:57)
--- NOTE | 2019-07-09 09:30 | NUR ---
SCHEDULED MEDS GIVEN. PT TOLERATED WELL. WILL CONTINUE TO MONITOR.
[2019-07-09 12:00] VITALS: BP 120/78
[2019-07-09] MEDS: MUPIROCIN CA NASAL 2% 1GM TUBE NS SCH (12:43)
[2019-07-09] MEDS: CHLORHEXADINE GLUC 2% CLOTH TP SCH (12:45)
--- NOTE | 2019-07-09 12:53 | NUR ---
SCHEDULED MEDS GIVEN. PT TOLERATED WELL. WILL CONTINUE TO MONITOR
--- NOTE | 2019-07-09 15:00 | NUR ---
FREQUENT ROUNDING DONE. PT IS SLEEPING, NO SIGNS OF DISTRESS. PT'S O2 SAT =97%
[2019-07-09 15:35] LABS: BASOPHILS % (AUTO) 0.4 % (0.0-2.0); EOSINOPHILS % (AUTO) 0.1 % (0.0-4.0); HEMATOCRIT 30.7 % (36-52); HEMOGLOBIN 9.7 g/dL (12.0-18.0); LYMPHOCYTES # (AUTO) 0.4 K/uL (2.0-11.5); LYMPHOCYTES % (AUTO) 2.9 % (20.5-51.1); MEAN CORPUSCULAR HEMOGLOBIN 30 pg (27-31); MEAN CORPUSCULAR HGB CONC 32 g/dL (33-37); MEAN CORPUSCULAR VOLUME 94.9 fL (80-94); MONOCYTES # (AUTO) 0.6 K/uL (0.8-1.0); MONOCYTES % (AUTO) 4.6 % (1.7-9.3); NEUTROPHILS # (AUTO) 11.4 K/uL (1.8-7.7); PLATELET COUNT (AUTO) 433 K/uL (140-450); RED BLOOD CELL COUNT(AUTO) 3.23 MIL/uL (4.20-6.10); RED CELL DISTRIBUTION WIDTH 17.1 % (11.6-13.7); WHITE BLOOD COUNT (AUTO) 12.4 K/uL (4.8-10.8)
[2019-07-09 15:58] LABS: ANION GAP 10.1 (8-16); CARBON DIOXIDE 34.6 mmol/L (21-32); POTASSIUM 4.7 mmol/L (3.5-5.1)
[2019-07-09 16:00] VITALS: BP 144/50
[2019-07-09 16:17] LABS: MAGNESIUM 2.3 mg/dL (1.8-2.4); PHOSPHORUS 4.8 mg/dL (2.5-4.9)
[2019-07-09 16:25] LABS: CREATININE 1.9 mg/dL (0.6-1.3)
[2019-07-09] MEDS ORDERED: VANCOMYCIN PER PHARMACY MC PRN (17:50)
--- NOTE | 2019-07-09 18:11 | NUR ---
PT REFUSED SCHEDULED MEDS. MEDICATION EDUCATION INSTRUCTED, PT VERBALIZED UNDERSTANDING. WILL CONTINUE TO MONITOR
[2019-07-09] MEDS ORDERED: VANCOMYCIN 2,000 MG in DEXTROSE 5% 500 ML IV ONE (19:15)
--- NOTE | 2019-07-09 19:16 | NUR ---
REPORT GIVEN TO HAND CLERICAL VERIFIER NURSE FOR CONTINUITY OF CARE. PT IS SLEEPING, NO SIGNS OF DISTRESS. CALL LIGHT WITHIN PT'S REACH. BED ON LOW, SIDE RAILS UP.
--- NOTE | 2019-07-09 19:17 | NUR ---
RECEIVED REPORT FROM DAY RN. PATIENT LYING DOWN IN BED WITH EYES CLOSED. RESPIRATIONS EVEN, UNLABORED, ON O2 2L/MIN VIA NC. LUNG SOUNDS CLEAR DIMINISHED AT BASE. IV ON R FA 22G SL.IV SITE INTACT. ABDOMEN SOFT, OBESE. SKIN COLOR APPROPRIATE TO ETHNICITY, AND WARM TO TOUCH. PT WITH SHERRIE ABRASION ON CRUZ WITH VERSATEL. PT WITH PITTING EDEMA +3. TESFAYE CATH DRAINING YELLOW URINE TO GRAVITY. PT ON FLUID RESTRICTION 1.5L/DAY PER RN PT IS NONCOMPLIANT. LBM TODAY PT ABLE TO USE BEDSIDE COMMODE WITH ASSIST ON FALL PRECAUTION D/T GEN WEAKNESS. REVIEWED PLAN OF CARE WITH PATIENT. REINFORCEMENT NEEDED. SAFETY MEASURES IN PLACE, CALL LIGHT WITHIN REACH. WILL CONTINUE TO MONITOR.
[2019-07-09] MEDS ORDERED: VANCOMYCIN 1,000 MG VIAL ONE (19:30)
--- NOTE | 2019-07-09 19:41 | NUR ---
VANCO NOW INFUSING PER ORDERS. CALL LIGHT IS WITHIN REACH. WILL CONTINUE TO MONITOR.
[2019-07-09 20:00] VITALS: BP 140/76
--- NOTE | 2019-07-09 21:18 | NUR ---
ADMINISTERED SOLU-MEDROL. PT STILL SLEEPING ABLE TO AWAKE UP BUT FALLS RIGHT BACK TO SLEEP PT VERY DROWSY. HELD PO MEDS WILL TRY AGAIN LATER.
[2019-07-09] MEDS: TAMSULOSIN 0.4 MG CAP PO SCH (21:54)
--- NOTE | 2019-07-09 21:54 | NUR ---
LIAN MEDICATIONS GIVEN PER ORDERS. PT TOLERATED WELL. IV INFILTRATED ARM SWOLLEN. IV REMOVED IV CATH IS INTACT. ARM RAISED ON PILLOW AND APPLIED WARM COMPRESS. WILL ADMINISTER TYLENOL. NO MOVE IV MEDS UNTIL 5AM. WILL CALL ER TO ATTEMPT NEW IV. PT IS A HARD STICK. CALL LIGHT IS WITHIN REACH.
[2019-07-09] MEDS: ACETAMINOPHEN 325 MG TAB PO PRN (22:01)
--- NOTE | 2019-07-09 22:45 | NUR ---
MADE ROUNDS. PT IS SLEEPING COMFORTABLY IN BED WITH EYES CLOSED. CHEST RISE AND FALL NOTED. SAFETY MEASURES ARE IN PLACE. WILL CONTINUE TO MONITOR.
[2019-07-10] VITALS: BP 155/88
--- NOTE | 2019-07-10 | NUR ---
VITAL SIGNS ARE WITHIN NORMAL LIMITS. GAVE CRANBERRY JUICE PER REQUEST EDUCATED PT ON FLUID RESTRICTION OF 1.5L/DAILY. PT VERBALIZED UNDERSTANDING PT IS AAOX2-3 BUT FORGETFUL AT TIMES. WILL CONTINUE TO REINFORCE FLUID RESTRICTION. SAFETY MEASURES ARE IN PLACE. CALL LIGHT IS WITHIN REACH.
--- NOTE | 2019-07-10 02:01 | NUR ---
APPLESAUCE GIVEN PER REQUEST. PT TOLERATED WELL. ALL NEEDS MET AT THIS TIME. CALL LIGHT IS WITHIN REACH. WILL CONTINUE TO MONITOR.
[2019-07-10 04:00] VITALS: BP 108/78
--- NOTE | 2019-07-10 04:00 | NUR ---
VITAL SIGNS ARE WITHIN NORMAL LIMITS. ALL SAFETY MEASURES ARE IN PLACE. WILL CONTINUE TO MONITOR.
[2019-07-10] MEDS: methylPREDNISolone SS 40 MG/ML VIAL IVP SCH ×2 (05:00→13:27)
--- NOTE | 2019-07-10 05:30 | NUR ---
ATTEMPT TO INSERT NEW IV X1 UNSUCCESSFUL. INSPECTOR OUTSIDE PRODUCTION ATTEMPT X2 WITH VEIN FINDER BUT, UNABLE TO OBTAIN IV ACCESS. MD AWARE PT WITHOUT IV ACCESS. CANNOT ADMINISTER SOLU-MEDROL AT THIS TIME. PT IS STABLE SLEEPING COMFORTABLY IN BED WITH EYES CLOSED. CALL LIGHT IS WITHIN REACH.
[2019-07-10] MEDS: SODIUM CHLORIDE FLUSH 10 ML SYR IVF SCH ×2 (05:44→13:27)
[2019-07-10 05:48] LABS: ANION GAP 9.7 (8-16); CREATININE 1.9 mg/dL (0.6-1.3); POTASSIUM 4.7 mmol/L (3.5-5.1)
[2019-07-10 05:52] LABS: MAGNESIUM 2.3 mg/dL (1.8-2.4); PHOSPHORUS 4.9 mg/dL (2.5-4.9)
[2019-07-10 06:04] LABS: BASOPHILS % (AUTO) 0.3 % (0.0-2.0); HEMOGLOBIN 9.8 g/dL (12.0-18.0); LYMPHOCYTES # (AUTO) 0.5 K/uL (2.0-11.5); NEUTROPHILS # (AUTO) 10.8 K/uL (1.8-7.7)
[2019-07-10 06:15] LABS: EOSINOPHILS % (AUTO) 0.1 % (0.0-4.0); HEMATOCRIT 31.6 % (36-52); MEAN CORPUSCULAR HEMOGLOBIN 30 pg (27-31); MEAN CORPUSCULAR HGB CONC 31 g/dL (33-37); MONOCYTES # (AUTO) 0.5 K/uL (0.8-1.0); MONOCYTES % (AUTO) 3.9 % (1.7-9.3); NEUTROPHILS % (AUTO) 91.7 % (42.2-75.2); PLATELET COUNT (AUTO) 441 K/uL (140-450); RED CELL DISTRIBUTION WIDTH 16.9 % (11.6-13.7); WHITE BLOOD COUNT (AUTO) 11.8 K/uL (4.8-10.8)
--- NOTE | 2019-07-10 06:30 | NUR ---
CONSENT FOR PICC LINE OBTAINED. PT VERBALIZED UNDERSTANDING FOR REASON AND POSSIBLE SIDE EFFECTS. PT STATES, "YES, I KNOW I HAVE HAD PICC LINES BEFORE." ALL NEEDS MET. CALL LIGHT IS WITHIN REACH.
--- NOTE | 2019-07-10 06:33 | NUR ---
CALLED PIC LINE NURSE [phone] AND LEFT MESSAGE.THAT PT NEEDS PICC LINE.
[2019-07-10] MEDS: ALBUTEROL SULFATE/IPRATROPIU 3 ML SOL IH SCH ×2 (06:49→13:00)
--- NOTE | 2019-07-10 06:56 | NUR ---
PT IS LAYING COMFORTABLY IN BED LISTENING TO MUSIC ON CELLPHONE. NO S/S OF DISTRESS. PT IS STABLE. WILL ENDORSE TO DAY RN.
--- NOTE | 2019-07-10 07:26 | NUR ---
SHIFT REPORT RECEIVED FROM EEG TECHNOLOGIST NURSE. PT IS IN BED AWAKE ALERT AND RESPONSIVE. NO COMPLAINS OF PAIN. NO DISTRESS NOTED. PT KEEP CALLING EVERY FEW MINUTES. WILL CONTINUE TO MONITOR. CALL LIGHT IN REACH.
[2019-07-10 08:00] VITALS: BP 156/82
[2019-07-10] MEDS ORDERED: MUPI2CRE22 NS (08:03)
[2019-07-10] MEDS ORDERED: SOTA80TA PO (08:03)
[2019-07-10] MEDS ORDERED: LEVO750T2 PO (08:03)
[2019-07-10] MEDS ORDERED: CHLO118S2 TP (08:03)
[2019-07-10] MEDS ORDERED: LACT10CA PO (08:03)
[2019-07-10] MEDS ORDERED: VANC1FRO IV ×2 (08:03→10:35)
[2019-07-10] MEDS: LACTOBACILLUS RHAMNOSUS GG 1 EACH CAP PO SCH (08:10)
[2019-07-10] MEDS: FERROUS SULFATE 325 MG TABEC PO SCH (08:10)
[2019-07-10] MEDS: PANTOPRAZOLE 40 MG TABEC PO SCH (08:10)
[2019-07-10] MEDS: SOTALOL 80 MG TAB PO SCH (08:10)
[2019-07-10] MEDS: BISACODYL 5 MG TABEC PO PRN (08:10)
[2019-07-10] MEDS: PSYLLIUM 12.2 GM/PKT PO SCH (08:11)
[2019-07-10] MEDS: APIXABAN 2.5 MG TAB PO SCH (08:13)
[2019-07-10] MEDS ORDERED: VANCOMYCIN 1,000 MG in DEXTROSE 5% 250 ML IV SCH (09:00)
[2019-07-10] MEDS: FUROSEMIDE 40 MG/4 ML VIAL IVP SCH (09:00)
[2019-07-10] MEDS: LEVOFLOXACIN 750 MG/D5W PREMIX 150 ML IV SCH (09:00)
[2019-07-10] MEDS ORDERED: FLUCONAZOLE 100 MG/NS PREMIX 50 ML IV SCH (09:00)
--- NOTE | 2019-07-10 09:48 | NUR ---
PT IS IN BED. AWAKE ALERT RESPONSIVE. PT IS CALLING EVERY FEW MINUTES. NO C/O PAIN. PT ON 2 L OF O2.NO DISTRESS NOTED. PT HAD BREAKFAST. PT DOES NOT HAVE IV LINE WAITING FOR PICC TO BE INSERTED. CHARGE NURSE AWARE. MORNING IV MEDS NOT GIVEN. PITTING EDEMA BILATERAL LOWER LEGS 2+. SAFETY MEASURE IN CHECK. WILL CONTINUE TO MONITOR. CALL LIGHT IN REACH.
[2019-07-10] MEDS ORDERED: FLUC100T PO (10:35)
[2019-07-10 12:00] VITALS: BP 141/69
[2019-07-10] MEDS: MUPIROCIN CA NASAL 2% 1GM TUBE NS SCH (12:06)
[2019-07-10] MEDS: CHLORHEXADINE GLUC 2% CLOTH TP SCH (12:07)
--- NOTE | 2019-07-10 12:30 | NUR ---
PT IS HAVING THE PICC DONE AT THIS TIME BY THE PICC NURSE. WILL CONTINUE TO MONITOR. CALL LIGHT IN REACH
--- NOTE | 2019-07-10 15:39 | NUR ---
PT WAS DISCHARGED TODAY. PT IS ALERT AND RESPONSIVE. DISCHARGE INSTRUCTIONS GIVEN TO PATIENT. SKIN NOT INTACT. PHOTOGRAPHS TAKEN. NO COMPLAINS OF PAIN. PT WAS SENT TO [facility] TO CONTINUE IV ANTIBIOTICS THERAPY. REPORT GIVEN TO BAUTISTA HERNÁNDEZ UNDER DR DIAZ. TESFAYE CATHETER REMOVED. PT HAD A PICC LINE TO RIGHT UPPER ARM UPON DISCHARGE. PICC INTACT. ID BAND REMOVED. PT WAS TAKEN IN WHEEL CHAIR BY [facility]. O2 2L NC. ID BAND REMOVED. NO COMPLAINS OF PAIN REPORTED.
== END 2019-07-10 15:15 | DRG 177 ==
LOC: MED 10:03 → MIC 14:32 → MTU 07-06 13:51
PROVIDERS: ADMIT General Practice; ATTEND General Practice
PROC: 02HV33Z Insertion of Infusion Device into Superior Vena Cava, Percutaneous Approach (ICD-10-PCS; principal; 2019-07-08)
PROC: B548ZZA Ultrasonography of Superior Vena Cava, Guidance (ICD-10-PCS; 2019-07-08)
DX: J69.0 Pneumonitis due to inhalation of food and vomit (principal); N17.0 Acute kidney failure with tubular necrosis; J96.21 Acute and chronic respiratory failure with hypoxia; I50.43 Acute on chronic combined systolic (congestive) and diastolic (congestive) heart failure; J96.22 Acute and chronic respiratory failure with hypercapnia; E44.1 Mild protein-calorie malnutrition; Z68.41 Body mass index [BMI] 40.0-44.9, adult; E87.1 Hypo-osmolality and hyponatremia; I13.0 Hypertensive heart and chronic kidney disease with heart failure and stage 1 through stage 4 chronic kidney disease, or unspecified chronic kidney disease; I42.9 Cardiomyopathy, unspecified; J44.1 Chronic obstructive pulmonary disease with (acute) exacerbation; N17.9 Acute kidney failure, unspecified; E87.3 Alkalosis; E11.22 Type 2 diabetes mellitus with diabetic chronic kidney disease; E87.5 Hyperkalemia; G47.00 Insomnia, unspecified; G47.33 Obstructive sleep apnea (adult) (pediatric); I27.81 Cor pulmonale (chronic); I48.0 Paroxysmal atrial fibrillation; K21.9 Gastro-esophageal reflux disease without esophagitis; K59.09 Other constipation; E66.01 Morbid (severe) obesity due to excess calories; M94.0 Chondrocostal junction syndrome [Tietze]; G47.30 Sleep apnea, unspecified; D64.9 Anemia, unspecified; N18.3 Chronic kidney disease, stage 3 (moderate); R31.9 Hematuria, unspecified; N40.0 Benign prostatic hyperplasia without lower urinary tract symptoms; T38.0X5A Adverse effect of glucocorticoids and synthetic analogues, initial encounter; Y92.89 Other specified places as the place of occurrence of the external cause; Z22.322 Carrier or suspected carrier of Methicillin resistant Staphylococcus aureus; Z79.01 Long term (current) use of anticoagulants; Z87.891 Personal history of nicotine dependence; Z88.0 Allergy status to penicillin; Z88.5 Allergy status to narcotic agent; Z90.81 Acquired absence of spleen; Z91.14 Patient's other noncompliance with medication regimen; Z95.810 Presence of automatic (implantable) cardiac defibrillator; Z96.643 Presence of artificial hip joint, bilateral; Z99.81 Dependence on supplemental oxygen
CPT/HCPCS: 36415; 36600; 71045; 76770; 80048; 80053; 80305; 81003; 82140; 82272; 82607; 82728; 82746; 82803; 82948; 83036; 83540; 83605; 83690; 83735; 83880; 84100; 84300; 84443; 84484; 85025; 85045; 85379; 85610; 85730; 87040; 87070; 87081; 87186; 87205; 93005; 93970; 94640; 96374; 96375; 96376; 97110; 97112; 97116; 97161-GP; 97530; 99291; C1751; J1160; J1450; J1940; J1956; J2060; J2270; J2405; J2920; J2930; J3370; J3490; J7030; J7060; J7613; J7644; Q0092